=== PATIENT | male | born 1970 | race African-American/Black ===

== ENCOUNTER 2020-08-15 11:49 | Emergency (ER) | payer SELFPAY ==
[2020-08-15] MEDS ORDERED: FENTANYL CITRATE INJ/PF 100 MCG/2 ML AMPUL IV ONE (13:43)
[2020-08-15] MEDS ORDERED: NORMAL SALINE 1000 ML 1,000 ML IV ONE ×2 (13:43→15:51)
--- NOTE | 2020-08-15 13:44 | ER Document Report ---
ED General - General Chief Complaint: Shortness Of Breath Stated Complaint: SHORT OF BREATH Time Seen by Provider: 08/15/20 12:57 Primary Care Provider: VIPIN DOLL PA-C [Primary Care Provider] - Follow up as needed Mode of Arrival: Ambulatory Information source: Patient Notes: Presents complaining of shortness of breath chronically that has worsened over the past 2 weeks. Patient states that this is worse with exertion. Patient also reports right upper quadrant tenderness off and on for the past 10 days. Patient denies any fever, nausea, vomiting or diarrhea. Patient does report recently driving from [place] last week. Patient denies any cough. Patient reports a history of COPD. Patient denies any concerns about possible Covid. - HPI Onset: Other - Weeks Onset/Duration: Worse Quality of pain: Pressure - Right upper quadrant Pain Level: 3 Associated symptoms: Shortness of breath. denies: Chest pain, Nonproductive cough, Productive cough, Fever, Nausea, Vomiting Exacerbated by: Other - Exertion worsening shortness of breath Relieved by: Remaining still Similar symptoms previously: Yes Recently seen / treated by doctor: No - Related Data Allergies/Adverse Reactions: No Known Allergies Allergy (Verified 08/15/20 12:13) Past Medical History - General Information source: Patient - Social History Smoking Status: Former Smoker Frequency of alcohol use: None Drug Abuse: None Family History: Reviewed & Not Pertinent - Past Medical History Cardiac Medical History: Denies: Hx Hypercholesterolemia, Hx Hypertension Pulmonary Medical History: Reports: Hx COPD Neurological Medical History: Reports: Hx Migraine Surgical Hx: Negative Review of Systems - Review of Systems Constitutional: No symptoms reported. denies: Fever EENT: No symptoms reported Cardiovascular: Dyspnea. denies: Chest pain, Dizziness, Lightheaded Respiratory: Short of breath. denies: Cough Gastrointestinal: Abdominal pain. denies: Nausea, Vomiting Genitourinary: No symptoms reported. denies: Dysuria, Flank pain Male Genitourinary: No symptoms reported Musculoskeletal: No symptoms reported. denies: Back pain, Leg swelling Skin: No symptoms reported Hematologic/Lymphatic: No symptoms reported Neurological/Psychological: No symptoms reported Physical Exam - Vital signs Vitals: Temp Pulse Resp BP Pulse Ox 97.9 F 119 H 24 H 148/108 H 95 08/15/20 11:59 08/15/20 11:59 08/15/20 11:59 08/15/20 11:59 08/15/20 11:59 - General General appearance: Appears well, Alert In distress: None - HEENT Head: Normocephalic, Atraumatic Eyes: Normal Conjunctiva: Normal Nasal: Normal Mouth/Lips: Normal Neck: Normal, Supple - Respiratory Respiratory status: No respiratory distress Chest status: Nontender Breath sounds: Normal Chest palpation: Normal - Cardiovascular Rhythm: Tachycardia Heart sounds: S1 appreciated, S2 appreciated Murmur: No - Abdominal Inspection: Normal Distension: No distension Bowel sounds: Normal Tenderness: Tender - RUQ. No: Guarding Organomegaly: No organomegaly - Back Back: Normal, Nontender. No: CVA tenderness - Extremities General upper extremity: Normal inspection, Normal ROM General lower extremity: Normal inspection, Normal ROM - Neurological Neuro grossly intact: Yes Cognition: Normal Raina Coma Scale Eye Opening: Spontaneous Raina Coma Scale Verbal: Oriented Raina Coma Scale Motor: Obeys Commands Raina Coma Scale Total: 15 - Psychological Associated symptoms: Normal affect, Normal mood - Skin Skin Temperature: Warm Skin Moisture: Dry Skin Color: Normal Course - Re-evaluation Re-evalutation: 08/15/20 15:51 Patient voided dark urine to urinal, patient continues tachycardic with heart rate 110, additional IV fluids ordered at this time. 08/15/20 18:00 Patient denies any chest pain or cough at this time. Patient's tachycardia has improved, heart rate 104. Consulted with Dr. Mir regarding patient presentation and diagnostic evaluation. Agrees with plan to treat for likely COPD exacerbation at this time with steroids. Patient without any cough or increased sputum production, will not add antibiotics at this time. Patient had right upper quadrant tenderness, no acute findings on CT or ultrasound. No concern for any biliary obstruction at this time. 08/15/20 18:23 No elevation in patient's repeat troponin, patient's vital signs stable at this time. Patient without any objective dyspnea or tachypnea. Presentation of dyspnea in an otherwise well appearing patient. Low clinical suspicion for ACS given clinical history, exam, EKG without ST elevations or depressions, and nega tive troponin. HEART score less than or equal to 3. CTA without evidence of PE. CXR without evidence of pneumothorax or pneumonia. No widened mediastinum. 08/15/20 18:25 - Vital Signs Vital signs: Temp Pulse Resp BP Pulse Ox 98.0 F 119 H 18 142/106 H 93 08/15/20 14:30 08/15/20 11:59 08/15/20 17:30 08/15/20 17:30 08/15/20 17:15 - Laboratory Result Diagrams: 08/15/20 12:35 08/15/20 12:35 Laboratory results interpreted by me: 08/15/20 08/15/20 08/15/20 12:35 12:35 15:30 WBC 15.1 H Absolute Neuts (auto) 9.8 H Absolute Monos (auto) 1.6 H Carbonic Acid ABG pH ABG pCO2 ABG pO2 ABG HCO3 ABG Total CO2 ABG O2 Saturation Chloride 94 L Carbon Dioxide 36 H Calcium 10.5 H Total Protein 9.1 H Albumin 5.2 H Urine Protein 30 H Urine Ketones 20 H Urine Blood SMALL H 08/15/20 15:43 WBC Absolute Neuts (auto) Absolute Monos (auto) Carbonic Acid 1.60 H ABG pH 7.33 L ABG pCO2 53.2 H ABG pO2 58.8 L ABG HCO3 27.4 H ABG Total CO2 29.0 H ABG O2 Saturation 88.3 L Chloride Carbon Dioxide Calcium Total Protein Albumin Urine Protein Urine Ketones Urine Blood - Diagnostic Test Radiology reviewed: Image reviewed, Reports reviewed - EKG Interpretation by Me EKG shows normal: Sinus rhythm Rate: Tachycardia When compared to previous EKG there are: Previous EKG unavailable Additional EKG results interpreted by me: 08/15/20 14:26 Sinus tachycardia with a rate of 109, QTc 410, no acute ischemic changes, no ST elevation. No prior EKG available for comparison. Discharge - Discharge Clinical Impression: Dehydration COPD (chronic obstructive pulmonary disease) Qualifiers: COPD type: unspecified COPD Qualified Code(s): J44.9 - Chronic obstructive pulmonary disease, unspecified Dyspnea Qualifiers: Dyspnea type: unspecified Qualified Code(s): R06.00 - Dyspnea, unspecified Abdominal pain Qualifiers: Abdominal location: right upper quadrant Qualified Code(s): R10.11 - Right upper quadrant pain Condition: Stable Disposition: HOME, SELF-CARE Instructions: Abdominal Pain ([facility]), Chronic Obstructive Lung Disease ([facility]), Dyspnea, Nonspecific ([facility]), Steroid Medication Additional Instructions: Return immediately for any new or worsening symptoms cough, worsening shortness of breath, fever or any concerning new symptoms: Followup with your primary care provider, call tomorrow to make a followup appointment 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
[2020-08-15 14:01] LABS: ALBUMIN 5.2 g/dL (3.5-5.0); ALKALINE PHOSPHATASE 80 U/L (38-126); ANION GAP 9 (5-19); ASPARTATE AMINO TRANSFERASE 35 U/L (17-59); BILIRUBIN,DIRECT 0.4 mg/dL (0.0-0.4); BILIRUBIN,TOTAL 1.2 mg/dL (0.2-1.3); BLOOD UREA NITROGEN 17 mg/dL (7-20); CALCIUM 10.5 mg/dL (8.4-10.2); CARBON DIOXIDE 36 mmol/L (22-30); CHLORIDE 94 mmol/L (98-107); GLUCOSE 108 mg/dL (75-110); TOTAL PROTEIN 9.1 g/dL (6.3-8.2)
[2020-08-15 14:18] LABS: NT PRO BNP 30 pg/mL (<125)
--- NOTE | 2020-08-15 14:18 | RADIOLOGY REPORT (SQ) ---
EXAM DESCRIPTION: CHEST SINGLE VIEW IMAGES COMPLETED DATE/TIME: 08/15/2020 12:57 pm REASON FOR STUDY: RUQ pain, tachycardia COMPARISON: None. EXAM PARAMETERS: NUMBER OF VIEWS: One view. TECHNIQUE: Single frontal radiographic view of the chest acquired. RADIATION DOSE: NA LIMITATIONS: None. FINDINGS: LUNGS AND PLEURA: Lungs are hyperinflated. No opacities, masses or pneumothorax. No pleur al effusion. MEDIASTINUM AND HILAR STRUCTURES: No masses. Contour normal. HEART AND VASCULAR STRUCTURES: Heart normal in size. Normal vasculature. BONES: No acute findings. HARDWARE: None in the chest. OTHER: No other significant finding. IMPRESSION: No acute cardiopulmonary disease. Hyperinflated lungs which can be seen with obstructiv e lung disease. TECHNICAL DOCUMENTATION: JOB ID: [id number] 2010 [employer]- All Rights Reserved Reading location - IP/workstation name: [id number]
[2020-08-15 14:19] LABS: TROPONIN I < 0.012 ng/mL
[2020-08-15] MEDS ORDERED: ONDANSETRON HCL INJ/PF 4 MG/2 ML SDV IV ONE (14:20)
[2020-08-15 14:21] LABS: ABSOLUTE BASOPHILS # (AUTO) 0.1 10^3/uL (0.0-0.2); ABSOLUTE EOSINOPHILS # (AUTO) 0.1 10^3/uL (0.0-0.6); ABSOLUTE LYMPHOCYTES (AUTO) 3.5 10^3/uL (0.5-4.7); ABSOLUTE MONOCYTES (AUTO) 1.6 10^3/uL (0.1-1.4); ABSOLUTE NEUT (AUTO) 9.8 10^3/uL (1.7-8.2); BASOPHILS % (AUTO) 0.4 % (0-2); EOSINOPHILS % (AUTO) 0.4 % (0-6); HEMATOCRIT 50.3 % (37.9-51.0); HEMOGLOBIN 16.7 g/dL (13.5-17.0); LYMPHOCYTES % (AUTO) 23.3 % (13-45); MEAN CORPUSCULAR HEMOGLOBIN 31.8 pg (27.0-33.4); MEAN CORPUSCULAR HGB CONC 33.3 g/dL (32.0-36.0); MEAN CORPUSCULAR VOLUME 96 fl (80-97); MONOCYTES % (AUTO) 10.5 % (3-13); PLATELET COUNT 255 10^3/uL (150-450); RED BLOOD COUNT 5.26 10^6/uL (4.35-5.55); RED CELL DISTRIBUTION WIDTH 13.5 % (11.5-14.0); SEGMENTED NEUTROPHILS % (AUTO) 65.4 % (42-78); TOTAL CELLS COUNTED % (AUTO) 100 %; WHITE BLOOD COUNT 15.1 10^3/uL (4.0-10.5)
--- NOTE | 2020-08-15 15:04 | EKG REPORT ---
SEVERITY:- ABNORMAL ECG - SINUS TACHYCARDIA RIGHT ATRIAL ABNORMALITY BORDERLINE RIGHT AXIS DEVIATION : Confirmed by: Kevin Mercado MD 15-Aug-2020 15:02:58
--- NOTE | 2020-08-15 15:29 | RADIOLOGY REPORT (SQ) ---
EXAM DESCRIPTION: U/S ABDOMEN LIMITED W/O DOP IMAGES COMPLETED DATE/TIME: 08/15/2020 3:03 pm REASON FOR STUDY: RUQ pain COMPARISON: None. TECHNIQUE: Dynamic and static grayscale images acquired of the abdomen and recorded on PACS. Additio nal selected color Doppler and spectral images recorded. LIMITATIONS: Upper abdominal bowel gas FINDINGS: PANCREAS: Midline pancreas unremarkable LIVER: No masses. Echotexture normal. LIVER VASCULATURE: Normal directional flow of the main portal vein and hepatic veins. GALLBLADDER: No stones. Normal wall thickness. No pericholecystic fluid. ULTRASOUND-DETECTED SHELDON'S SIGN: Negative. INTRAHEPATIC DUCTS AND COMMON DUCT: CBD and intrahepatic ducts normal caliber. No filling defects. INFERIOR VENA CAVA: Normal flow. AORTA: No aneurysm. RIGHT KIDNEY: Normal size. Normal echogenicity. No solid or suspicious masses. No hydronephrosis. No calcifications. PERITONEAL AND RIGHT PLEURAL SPACE: No ascites or effusions. OTHER: No other significant findings. IMPRESSION: NORMAL RIGHT UPPER QUADRANT ULTRASOUND. TECHNICAL DOCUMENTATION: JOB ID: [id number] 2010 [employer]- All Rights Reserved Reading location - IP/workstation name: [email or web address]
[2020-08-15 16:08] LABS: APPEARANCE,URINE CLEAR; BILIRUBIN,URINE NEGATIVE (NEGATIVE); COLOR,URINE YELLOW; GLUCOSE, URINE NEGATIVE (NEGATIVE); KETONES,URINE 20 mg/dL (NEGATIVE); LEUKOCYTE ESTERASE,URINE NEGATIVE (NEGATIVE); NITRITE,URINE NEGATIVE (NEGATIVE); PROTEIN,URINE 30 mg/dL (NEGATIVE); URINE SPECIFIC GRAVITY 1.026; UROBILINOGEN,URINE NEGATIVE mg/dL (<2.0)
[2020-08-15 16:08] LABS: ARTERIAL BLOOD BASE EXCESS 0.3 mmol/L; ARTERIAL BLOOD FIO2 ROOM AIR; ARTERIAL BLOOD HCO3 27.4 mmol/L (20-24); ARTERIAL BLOOD O2 SATURATION 88.3 % (94-98); ARTERIAL BLOOD PCO2 53.2 mmHg (35-45); ARTERIAL BLOOD PH 7.33 (7.35-7.45); ARTERIAL BLOOD PO2 58.8 mmHg (80-100)
[2020-08-15 16:22] LABS: URINE AMPHETAMINES SCREEN NEGATIVE; URINE BENZODIAZEPINES SCREEN NEGATIVE; URINE COCAINE SCREEN NEGATIVE; URINE MARIJUANA (THC) SCREEN NEGATIVE; URINE METHADONE SCREEN NEGATIVE; URINE PHENCYCLIDINE SCREEN NEGATIVE
[2020-08-15 16:24] LABS: URINE BARBITURATES SCREEN UNCONFIRMED POSITIVE
--- NOTE | 2020-08-15 17:03 | RADIOLOGY REPORT (SQ) ---
EXAM DESCRIPTION: CTA CHEST IMAGES COMPLETED DATE/TIME: 08/15/2020 3:31 pm REASON FOR STUDY: tachycardia, sob, RUQ pain. COMPARISON: Chest radiograph same date. Abdominal ultrasound same date. . TECHNIQUE: CT scan of the chest performed using helical scanning technique with dynamic intravenous contrast injection. Images reviewed with lung, soft tissue and bone windows. Reconstructed coronal and sagittal MPR images reviewed. Additional 3 dimensional post-processing performed to develop Maximal Intensity Projection images (DE P). All images stored on PACS. All CT scanners at this facility use dose modulation, iterative reconstruction, and/or weight based d osing when appropriate to reduce radiation dose to as low as reasonably achievable (ALARA). [facility]: Dose Right [facility]: CareDose [facility]: Dose Right [facility]: Teradose 4D [facility]: [employer] CONTRAST TYPE AND DOSE: contrast/concentration: Isovue 350.00 mmol/ml; Total Contrast Delivered: 51. 0 ml; Total Saline Delivered: 76.0 ml Contrast bolus not optimized for the pulmonary arteries. RENAL FUNCTION: GFR > 60. RADIATION DOSE: CT Rad equipment meets quality standard of care and radiation dose reduction techniq ues were employed. CTDIvol: 9.9 - 14.3 mGy. DLP: 612 mGy-cm. . LIMITATIONS: None. FINDINGS: LUNGS AND PLEURA: Trachea has normal caliber and appearance. No bronchial wall thickening or bronchiectasis. Background moderate pulmonary emphysema predominantly at the lung apices. No fo billie consolidation or pleural effusion. No pneumothorax. No significant ground-glass attenuation. AORTA AND GREAT VESSELS: The aorta has normal caliber and appearance. No aneurysm. No dissection or significant plaque or plaque ulceration. No periaortic fluid. 3 great vessels arise from the aorti c arch. Descending thoracic aorta and upper abdominal aorta have normal caliber. HEART: No pericardial effusion. No significant coronary artery calcifications. PULMONARY ARTERIES: The pulmonary arteries are moderately opacified with contrast. There is no large central pulmonary embolus. Evaluation of the segmental and subsegmental pulmonary arteries is limit ed due to phase of contrast timing. HILAR AND MEDIASTINAL STRUCTURES: No identified masses or abnormal nodes. HARDWARE: None in the chest. UPPER ABDOMEN: No significant abnormality. THYROID AND OTHER SOFT TISSUES: No masses. No adenopathy. BONES: No acute or significant finding. 3D MIPS: Confirm above findings. OTHER: No other significant finding. IMPRESSION: 1. No large central pulmonary embolus. Evaluation of the segmental and subsegmental pulmonary arteri es is limited due to phase of contrast timing. 2. No aortic aneurysm or dissection. 3. Moderate pulmonary emphysema. COMMENT: Quality ID # [id number]: Final reports with documentation of one or more dose reduction techniques (e.g., Automated exposure control, adjustment of the mA and/or kV according to patient size, use of iterative reconstruction technique) TECHNICAL DOCUMENTATION: JOB ID: [id number] 2010 [employer]- All Rights Reserved Reading location - IP/workstation name: [email or web address]
[2020-08-15] MEDS ORDERED: PREDNISONE 20 MG TABLET PO ONE (18:27)
[2020-08-15 18:57] VITALS: BP 144/92
== END 2020-08-15 18:52 | disposition home or self-care (01) ==
LOC: ER 11:49
DX: J43.9 Emphysema, unspecified (principal); E86.0 Dehydration; R10.11 Right upper quadrant pain; R10.811 Right upper quadrant abdominal tenderness; R00.0 Tachycardia, unspecified; Z87.891 Personal history of nicotine dependence
CPT/HCPCS: 93005; 99285; 96361; 96374; 96375; 36415; 82803; 83690; 83735; 84443; 85025; 80053; 81001; 84484; 80307; 85379; 83880; 71045; 76705; 71275; 93010; J3010; J7512; J2405; J7030

== ENCOUNTER → 2020-08-30 | Outpatient (CLI) | payer SELFPAY ==
[2020-08-30 13:51] LABS: ARTERIAL BLOOD BASE EXCESS 4.2 mmol/L; ARTERIAL BLOOD H2CO3 1.66 mmol/L (1.05-1.35); ARTERIAL BLOOD HCO3 31.2 mmol/L (20-24); ARTERIAL BLOOD O2 SATURATION 93.5 % (94-98); ARTERIAL BLOOD PCO2 55.2 mmHg (35-45); ARTERIAL BLOOD PH 7.37 (7.35-7.45); ARTERIAL BLOOD PO2 70.6 mmHg (80-100); ARTERIAL BLOOD TOTAL CO2 32.9 mmol/L (23-27)
[2020-08-30 13:52] LABS: ARTERIAL BLOOD FIO2 ROOM AIR
[2020-08-30 14:06] LABS: ABSOLUTE BASOPHILS # (AUTO) 0.1 10^3/uL (0.0-0.2); ABSOLUTE EOSINOPHILS # (AUTO) 0.1 10^3/uL (0.0-0.6); ABSOLUTE LYMPHOCYTES (AUTO) 1.9 10^3/uL (0.5-4.7); ABSOLUTE MONOCYTES (AUTO) 1.2 10^3/uL (0.1-1.4); ABSOLUTE NEUT (AUTO) 9.4 10^3/uL (1.7-8.2); BASOPHILS % (AUTO) 0.5 % (0-2); EOSINOPHILS % (AUTO) 0.5 % (0-6); HEMATOCRIT 46.1 % (37.9-51.0); HEMOGLOBIN 15.3 g/dL (13.5-17.0); LYMPHOCYTES % (AUTO) 14.9 % (13-45); MEAN CORPUSCULAR HEMOGLOBIN 31.5 pg (27.0-33.4); MEAN CORPUSCULAR HGB CONC 33.1 g/dL (32.0-36.0); MEAN CORPUSCULAR VOLUME 95 fl (80-97); MONOCYTES % (AUTO) 9.2 % (3-13); PLATELET COUNT 314 10^3/uL (150-450); RED BLOOD COUNT 4.85 10^6/uL (4.35-5.55); SEGMENTED NEUTROPHILS % (AUTO) 74.9 % (42-78); TOTAL CELLS COUNTED % (AUTO) 100 %; WHITE BLOOD COUNT 12.6 10^3/uL (4.0-10.5)
[2020-08-30 14:35] LABS: ALBUMIN 4.5 g/dL (3.5-5.0); ALKALINE PHOSPHATASE 68 U/L (38-126); ANION GAP 6 (5-19); ASPARTATE AMINO TRANSFERASE 22 U/L (17-59); BILIRUBIN,DIRECT 0.1 mg/dL (0.0-0.4); BILIRUBIN,TOTAL 0.6 mg/dL (0.2-1.3); BLOOD UREA NITROGEN 14 mg/dL (7-20); CALCIUM 9.9 mg/dL (8.4-10.2); CARBON DIOXIDE 36 mmol/L (22-30); CHLORIDE 95 mmol/L (98-107); GLUCOSE 102 mg/dL (75-110); POTASSIUM 5.3 mmol/L (3.6-5.0); TOTAL PROTEIN 8.2 g/dL (6.3-8.2)
[2020-08-31 13:37] LABS: ANTICHROMATIN AB <0.2 AI (0.0-0.9); CENTROMERE B AB <0.2 AI (0.0-0.9); JO-1 ANTIBODY (ANACOMP) <0.2 AI (0.0-0.9); SJOGREN'S ANTI-SS-B AB <0.2 AI (0.0-0.9); SJOGREN'S SS-A ANTIBODY <0.2 AI (0.0-0.9)
[2020-08-31 13:50] LABS: DNA DOUBLE STRAND ANTIBODY ANA <1 IU/mL (0-9)
== END ==
LOC: OD 13:09
PROVIDERS: ATTEND Internal Medicine Pulmonary Disease
DX: J44.9 Chronic obstructive pulmonary disease, unspecified (principal)
CPT/HCPCS: 36415; 80053; 82103; 82104; 82803; 85025; 86225; 86235

== ENCOUNTER 2020-09-02 23:39 | Emergency (ER) | payer SELFPAY ==
--- NOTE | 2020-09-03 00:01 | ER Document Report ---
ED Medical Screen (RME) - General Chief Complaint: Shortness Of Breath Stated Complaint: SHORTNESS OF BREATH, HEADACHE Time Seen by Provider: 09/02/20 23:57 Primary Care Provider: ANGELA ROSE MD [Primary Care Provider] - Follow up as needed Mode of Arrival: Wheelchair Notes: Patient is a 49-year-old male comes emergency room complaining of shortness of breath and fast heart rate. Patient states that he has a history of COPD and currently changed on his MDI to Stiolto/respira/MDI. He states around 11 AM this morning became exceptionally short of breath. Took a prednisone tablet he had that a little bit better. Around 2:58 PM he said he got short of breath again with diaphoretic and felt like his throat was closing up on him. And again tonight around 9 outsets. patient is taken approximately 3 doses of steroids today. He denies any history of hypertension is on no hypertensive medications it was noted. Patient arrived in triage was noted that his pulse oximetry showed an 88% on room air. Patient was placed on 2 L nasal cannula by the triage nurse and patient sat close to approximately 92%. Currently patient has a heart rate of approximately 145 beats he appears to be somewhat consistent. Physical examination: Patient is a well-nourished well-developed 29-year-old male though no apparent distress but appears somewhat uncomfortable. Patient is not in any respiratory distress currently. Cardiac: Patient displays a tachycardic rate at about 145 bpm constant. Lungs: Bilateral breath sounds decreased throughout no rhonchi or wheeze are heard on auscultation. Abdomen: Bowel sounds present all 4 quads nontender to palpate. I have greeted and performed a rapid initial assessment of this patient. A comprehensive ED assessment and evaluation of the patient, analysis of test results and completion of the medical decision making process will be conducted by additional ED providers. Dictation of this chart was performed using voice recognition software; therefore, there may be some unintended grammatical errors. - Related Data Allergies/Adverse Reactions: No Known Allergies Allergy (Verified 08/15/20 12:13) Past Medical History - Past Medical History Cardiac Medical History: Denies: Hx Hypercholesterolemia, Hx Hypertension Pulmonary Medical History: Reports: Hx COPD Neurological Medical History: Reports: Hx Migraine Physical Exam - Vital signs Vitals: Temp Pulse Resp BP Pulse Ox 97.7 F 145 H 16 139/101 H 91 L 09/02/20 23:50 09/02/20 23:50 09/02/20 23:50 09/02/20 23:50 09/02/20 23:50 Course - Vital Signs Vital signs: Temp Pulse Resp BP Pulse Ox 97.7 F 145 H 16 139/101 H 91 L 09/02/20 23:50 09/02/20 23:50 09/02/20 23:50 09/02/20 23:50 09/02/20 23:50 Doctor's Discharge - Discharge Referrals: ANGELA ROSE MD [Primary Care Provider] - Follow up as needed
[2020-09-03 00:27] LABS: ABSOLUTE BASOPHILS # (AUTO) 0.1 10^3/uL (0.0-0.2); ABSOLUTE LYMPHOCYTES (AUTO) 2.7 10^3/uL (0.5-4.7); ABSOLUTE MONOCYTES (AUTO) 1.5 10^3/uL (0.1-1.4); ABSOLUTE NEUT (AUTO) 12.2 10^3/uL (1.7-8.2); BASOPHILS % (AUTO) 0.6 % (0-2); EOSINOPHILS % (AUTO) 0.1 % (0-6); HEMATOCRIT 51.2 % (37.9-51.0); HEMOGLOBIN 16.9 g/dL (13.5-17.0); LYMPHOCYTES % (AUTO) 16.2 % (13-45); MEAN CORPUSCULAR HEMOGLOBIN 31.9 pg (27.0-33.4); MEAN CORPUSCULAR VOLUME 97 fl (80-97); MONOCYTES % (AUTO) 9.1 % (3-13); PLATELET COUNT 302 10^3/uL (150-450); RED BLOOD COUNT 5.29 10^6/uL (4.35-5.55); RED CELL DISTRIBUTION WIDTH 13.4 % (11.5-14.0); TOTAL CELLS COUNTED % (AUTO) 100 %; WHITE BLOOD COUNT 16.5 10^3/uL (4.0-10.5)
[2020-09-03] MEDS ORDERED: NORMAL SALINE 1000 ML 1,000 ML IV ONE ×2 (00:52→06:28)
[2020-09-03] MEDS ORDERED: METHYLPREDNISOLONE INJ 125 MG/2 ML SDV IV ONE (00:52)
[2020-09-03] MEDS ORDERED: IPRATROPIUM/ALBUTEROL 0.5-2.5 MG/3 ML AMPUL NEB ONE (00:53)
[2020-09-03 01:03] LABS: ALBUMIN 4.9 g/dL (3.5-5.0); ALKALINE PHOSPHATASE 86 U/L (38-126); ANION GAP 12 (5-19); ASPARTATE AMINO TRANSFERASE 31 U/L (17-59); BLOOD UREA NITROGEN 15 mg/dL (7-20); CALCIUM 10.7 mg/dL (8.4-10.2); CARBON DIOXIDE 31 mmol/L (22-30); CHLORIDE 93 mmol/L (98-107); GLUCOSE 130 mg/dL (75-110)
[2020-09-03 01:09] LABS: BILIRUBIN,DIRECT 0.2 mg/dL (0.0-0.4); BILIRUBIN,TOTAL 0.8 mg/dL (0.2-1.3)
[2020-09-03 01:10] LABS: TOTAL PROTEIN 9.7 g/dL (6.3-8.2)
--- NOTE | 2020-09-03 01:11 | RADIOLOGY REPORT (SQ) ---
EXAM DESCRIPTION: XR CHEST 1 VIEW COMPLETED DATE/TME: 09/03/2020 00:25 CLINICAL HISTORY: 49 years, Male, Short of breath COMPARISON: X-ray chest 08/15/2020 NUMBER OF VIEWS: TECHNIQUE: LIMITATIONS: None. FINDINGS: There is emphysema. No evidence of pulmonary infiltrate or pleural effusion. The heart and mediastinum are unremarkable. Pulmonary vascularity appears normal. There is no significant change, as compared with the prior x-ray(s). IMPRESSION: Emphysema. copyright 2010 [employer]- All Rights Reserved
[2020-09-03] MEDS ORDERED: CALCIUM GLUCONATE 1000 MG/10 ML INJ IV ONE (01:14)
[2020-09-03] MEDS ORDERED: INSULIN REG, HUMAN 100 UNIT/ML 3 ML VIAL (PYX) IV ONE (01:19)
[2020-09-03] MEDS ORDERED: DEXTROSE 50%-WATER 25 GM/50 ML DISP.SYRIN IV ONE (01:19)
[2020-09-03 01:31] LABS: PHOSPHORUS 3.8 mg/dL (2.5-4.5)
[2020-09-03] MEDS ORDERED: IBUPROFEN 600 MG TABLET PO ONE (01:52)
--- NOTE | 2020-09-03 03:06 | ER Document Report ---
ED General - General Chief Complaint: Shortness Of Breath Stated Complaint: SHORTNESS OF BREATH, HEADACHE Time Seen by Provider: 09/02/20 23:57 Primary Care Provider: ANGELA ROSE MD [Primary Care Provider] - Follow up in 1 week KROINA FELIX MD [ACTIVE STAFF] - Follow up in 1 week Mode of Arrival: Wheelchair Notes: 49-year-old male with COPD presents with shortness of breath for the past day. Patient says that throughout the day he has felt so short of breath at times that he does not have any air movement and when he tried to use the albuterol he can get into his lungs. Patient needs over to catch his breath and then is able to use the albuterol which partially improves his symptoms. Patient says this is similar to his prior COPD symptoms but is worse. Patient was only diagnosed several months ago with COPD and has been following with the machine captain. Patient quit smoking 2 years ago. Patient denies any cough, fever, myalgia, malaise, chest pain, lower extremity edema, cardiac history, DVT/PE/hypercoagulability history in self or family, exogenous estrogen use, recent travel/trauma/surgery/immobilization, drug use including cocaine or other stimulants, thyroid history, black or bloody stools/diarrhea/vomiting. Patient does endorse that he has had pain in his right upper quadrant somewhat constantly for the last several months without any associated symptoms. Also says that he has been feeling slight burning when he pees for the past few days. Endorses having lost about 8 pounds over the last few months, but attributes it to stopping his heavy soda drinking and switching to water. - Related Data Allergies/Adverse Reactions: No Known Allergies Allergy (Verified 08/15/20 12:13) Past Medical History - General Information source: Patient, [facility] Records - Social History Smoking Status: Former Smoker Family History: Reviewed & Not Pertinent - Past Medical History Cardiac Medical History: Denies: Hx Hypercholesterolemia, Hx Hypertension Pulmonary Medical History: Reports: Hx COPD Neurological Medical History: Reports: Hx Migraine Review of Systems - Review of Systems Notes: REVIEW OF SYSTEMS: CONSTITUTIONAL : Denies fever, chills, or sweats. EENT: Denies recent cold/sinus symptoms, denies throat pain CARDIOVASCULAR: Denies chest pain, GEORGE RESPIRATORY: Denies cough, + shortness of breath. GASTROINTESTINAL: Denies +abdominal pain, -nausea/vomiting. GENITOURINARY: Denies difficulty urinating, +painful urination. MUSCULOSKELETAL: Denies neck pain, back pain. SKIN: Denies rash or skin lesions. HEMATOLOGIC : Denies easy bruising or bleeding. LYMPHATIC: Denies swollen, enlarged glands. NEUROLOGICAL: Denies headache, denies change in gait. PSYCHIATRIC: Denies anxiety or stress or depression. Physical Exam - Vital signs Vitals: Temp Pulse Resp BP Pulse Ox 97.7 F 145 H 16 139/101 H 91 L 09/02/20 23:50 09/02/20 23:50 09/02/20 23:50 09/02/20 23:50 09/02/20 23:50 - Notes Notes: PHYSICAL EXAMINATION: GENERAL: Well-appearing, thin pleasant talkative middle-aged man appearing younger than stated age and in no acute distress. HEAD: Atraumatic, normocephalic. EYES: Pupils equal round and appropriate constriction, sclera anicteric, conjunctiva are normal. ENT: nares patent, moist mucous membranes. NECK: Normal range of motion, supple without lymphadenopathy, no thyroid masses palpable LUNGS: Breath sounds clear to auscultation bilaterally and equal, diminished breath sounds diffusely, no tachypnea, speaking in full sentences, no accessory muscle use HEART: Tachycardia with regular rhythm, no murmurs rubs or gallops ABDOMEN: Mild right upper quadrant tenderness without rebound or guarding, prominent pulsations from abdominal aorta, no CVA tenderness EXTREMITIES: Normal range of motion, no pitting or edema. No cyanosis. NEUROLOGICAL: Awake, alert, conversing appropriately, moves all extremities spontaneously. PSYCH: Normal mood, normal affect. SKIN: Warm, Dry, normal turgor, no rashes or lesions noted. Course - Re-evaluation Re-evalutation: 09/03/20 03:36 Patient presents with shortness of breath, exam is consistent with COPD exacerbation, patient also with marked tachycardia on arrival which has improved after improvement of his COPD symptoms with nebs. Given dramatic improvement in symptoms with treatment for COPD I have low suspicion for PE in this patient and given that he has no risk factors for PE he is sufficiently low risk to rule out with a D-dimer which was negative. Patient appears reliable and denies any drug use that may be contributing to tachycardia. Rule out signs of dehydration on labs, hyperthyroidism, but not consistent with thyroid storm. 09/03/20 03:42 Patient's potassium was 7 on initial BMP, I called lab to make sure that specimen was not hemolyzed and there was slight hemolysis but was told that this was not enough to make potassium still elevated. I asked nurse to redraw BMP and then treat for hyperkalemia while waiting for repeat result and repeat BMP shows a normal potassium of 5.1. Unable to definitively say why patient had initial potassium of 7, but likely is a sign that patient was significantly ac idotic when he arrived and that this is now resolved. 09/03/20 06:18 Patient continues to feel improved, 4-hour repeat troponin remains negative, will discharge patient with cardiology follow-up for EKG abnormalities on arrival, but heart score is 1 for EKG. I explained this to him and will give him the information for a pierogi maker. Patient's tachycardia has greatly improved and is now in the 100s which is what he has been at at prior visits, he does take a beta-db for intermittent headache symptoms which may be causing rebound tachycardia. patient ready for discharge with COPD treatment, given return to ED precautions which he demonstrated understanding of. - Vital Signs Vital signs: Temp Pulse Resp BP Pulse Ox 97.7 F 145 H 17 143/108 H 99 09/02/20 23:50 09/02/20 23:50 09/03/20 05:31 09/03/20 05:31 09/03/20 05:31 - Laboratory Results Result Diagrams: 09/03/20 00:13 09/03/20 02:15 Laboratory Results Interpreted: 09/03/20 09/03/20 09/03/20 00:13 00:13 00:13 WBC 16.5 H Hct 51.2 H Absolute Neuts (auto) 12.2 H Absolute Monos (auto) 1.5 H Sodium 135.9 L Potassium 7.0 H* Chloride 93 L Carbon Dioxide 31 H Glucose 130 H Calcium 10.7 H Creatine Kinase 190 H Total Protein 9.7 H Urine Protein Urine Glucose (UA) Urine Ketones Urine Blood Urine Sodium 09/03/20 09/03/20 09/03/20 02:15 03:16 03:16 WBC Hct Absolute Neuts (auto) Absolute Monos (auto) Sodium 136.6 L Potassium 5.1 H D Chloride Carbon Dioxide 31 H Glucose Calcium Creatine Kinase Total Protein Urine Protein 100 H Urine Glucose (UA) >=500 H Urine Ketones 20 H Urine Blood SMALL H Urine Sodium 107 H Critical Laboratory Results Reviewed: Yes Attending or Supervising Physician who Reviewed Labs: AGUSTIN HERNANDEZ - Radiology Results Critical Radiology Results Reviewed: No Critical Results - EKG Interpretation by Me Additional EKG results interpreted by me: 09/03/20 06:37 Sinus tachycardia, no significant ST elevations or depressions, equivocal T wave abnormalities Discharge - Discharge Clinical Impression: COPD exacerbation, Hyperkalemia, transcellular shifts, Tachycardia, Microscopic hematuria Disposition: HOME, SELF-CARE Additional Instructions: Follow-up closely with your machine captain within the next few days. Take all steroids as prescribed. Take albuterol every 4 hours over the next 4 days. If you have any worsening shortness of breath, chest pain, dizziness, palpitations, confusion, fainting, or any other worsening or alarming symptoms return to the emergency department immediately. Your white blood cells were high which is probably because you were in distress because of your breathing, however you should follow-up with your primary doctor to make sure that this is not a sign of something dangerous such as cancer. You had a small amount of blood in your urine also and you should follow this up too. follow-up with the primary doctor within 1 week. Your EKG was also somewhat abnormal, you will need to see a pierogi maker for this as we discussed. Patient was provided with discharge information including: As a person under investigation for Covid 19, the [place] department of Health and Human Services, division of public health advises you to adhere to the following guidance until your test results are reported to you. If your test result is positive, you will receive additional information from your provider and your local health department at that time. Remain at home until you are cleared by the health provider or public health authorities. Keep a log of visitors to your home, notify any visitors to your home of your isolation status. If you plan to move to a new address or leave the county, notify the local health department in your County. Call your doctor or seek care if you have an urgent medical need. Before seeking medical care, call ahead to get instructions from the provider before arriving at the medical office clinic or hospital. Notify them that you are being tested for the virus that causes Covid 19 so that arrangements can be made, as necessary, to prevent transmission to others in the healthcare setting. Next, notify the local health department in your county. If a medical emergency arises and you need to call 911, inform the first responders that you are being tested for the virus that causes Covid 19. Next, notify the local health department in your county. Prescriptions: Prednisone [Deltasone 20 mg Tablet] 3 tab PO DAILY 4 Days #12 tablet Albuterol Sulfate [Proair HFA Inhalation Aerosol 8.5 gm MDI] 2 puff IH Q4H #1 mdi Referrals: ANGELA ROSE MD [Primary Care Provider] - Follow up in 1 week KORINA FELIX MD [ACTIVE STAFF] - Follow up in 1 week
[2020-09-03 03:35] LABS: ANION GAP 7 (5-19); BLOOD UREA NITROGEN 14 mg/dL (7-20); CALCIUM 8.7 mg/dL (8.4-10.2); CARBON DIOXIDE 31 mmol/L (22-30); CHLORIDE 99 mmol/L (98-107); GLUCOSE 105 mg/dL (75-110)
[2020-09-03 03:36] LABS: POTASSIUM 5.1 mmol/L (3.6-5.0)
[2020-09-03 04:00] LABS: URINE CREATININE 186.1 mg/dL (22-328)
--- NOTE | 2020-09-03 04:16 | RADIOLOGY REPORT (SQ) ---
Ultrasound right upper quadrant on 09/03/2020 at 3:20 AM CLINICAL INDICATION: Right upper quadrant pain, pulsatile epigastric mass COMPARISON: CT chest and upper abdomen from 08/15/2020 and ultrasound from 08/15/2020 FINDINGS: Multiple sonographic images were obtained throughout the right upper quadrant, both transverse and sagittal images are obtained. Visualized pancreas is unremarkable. Visualized aorta is unremarkable without evidence of an aneurysm. Visualized liver is homogeneous without focal liver lesion. There are no gallstones, gallbladder wall thickening or pericholecystic fluid. The portal vein is patent and with a normal directional flow. The common duct measures 4 mm which is within normal limits mitigating against obstruction of the biliary tree. Right kidney shows no hydronephrosis. IMPRESSION: Unremarkable exam.
[2020-09-03 05:02] LABS: APPEARANCE,URINE CLEAR; BILIRUBIN,URINE NEGATIVE (NEGATIVE); COLOR,URINE YELLOW; GLUCOSE, URINE >=500 mg/dL (NEGATIVE); KETONES,URINE 20 mg/dL (NEGATIVE); LEUKOCYTE ESTERASE,URINE NEGATIVE (NEGATIVE); NITRITE,URINE NEGATIVE (NEGATIVE); PROTEIN,URINE 100 mg/dL (NEGATIVE); URINE SPECIFIC GRAVITY 1.021; UROBILINOGEN,URINE NEGATIVE mg/dL (<2.0)
[2020-09-03 06:57] VITALS: BP 133/90
--- NOTE | 2020-09-03 08:56 | EKG REPORT ---
SEVERITY:- ABNORMAL ECG - SINUS TACHYCARDIA NONSPECIFIC INTRAVENTRICULAR CONDUCTION DELAY ST DEPRESSION, CONSIDER ISCHEMIA, INF LEADS BIATRIAL ABNORMALITIES : Confirmed by: Arcelia Isaacs MD 03-Sep-2020 08:56:03
== END 2020-09-03 06:58 | disposition home or self-care (01) ==
LOC: ER 23:39
DX: J43.9 Emphysema, unspecified (principal); E87.5 Hyperkalemia; R31.29 Other microscopic hematuria; R06.02 Shortness of breath; R10.11 Right upper quadrant pain; R10.811 Right upper quadrant abdominal tenderness; R00.0 Tachycardia, unspecified; R30.0 Dysuria; Z79.899 Other long term (current) drug therapy; Z87.891 Personal history of nicotine dependence; Z20.828 Contact with and (suspected) exposure to other viral communicable diseases
CPT/HCPCS: 93005; 94640; 99285; 96361; 96375; 96365; 96366; 36415; 87086; 82550; 83690; 83735; 83930; 84100; 84443; 82570; 83935; 84133; 84300; 85025; 87635; 80053; 81001; 84484; 85379; 71045; 76705; 93010; J0610; J3490; J2930; J1815; J7030; C9803

== ENCOUNTER 2020-09-05 20:25 | Observation (INO) | payer OTHER ==
[2020-09-05] MEDS ORDERED: IPRATROPIUM/ALBUTEROL 0.5-2.5 MG/3 ML AMPUL NEB ONE (20:43)
[2020-09-05] MEDS ORDERED: LEVALBUTEROL HCL NEB 1.25 MG/3 ML AMPUL NEB ONE (20:43)
[2020-09-05] MEDS ORDERED: METHYLPREDNISOLONE INJ 125 MG/2 ML SDV IV ONE (20:43)
[2020-09-05] MEDS ORDERED: NORMAL SALINE 1000 ML 1,000 ML IV ONE (20:44)
--- NOTE | 2020-09-05 20:46 | ER Document Report ---
ED Medical Screen (RME) - General Stated Complaint: DIFFICULTY BREATHING/COPD Time Seen by Provider: 09/05/20 20:38 Primary Care Provider: ANGELA ROSE MD [Primary Care Provider] - Follow up as needed Notes: Patient presents complaining of difficulty breathing that started today. Patient states he did have some chest pain and diaphoresis. Patient denies any fever. Patient's initial pulse ox was 70% on presentation to the ER. Patient tachycardic. Patient reports history of COPD. Denies any previous history of intubation. I have greeted and performed a rapid initial assessment of this patient. A comprehensive ED assessment and evaluation of the patient, analysis of test results and completion of the medical decision making process will be conducted by additional ED providers. - Related Data Allergies/Adverse Reactions: No Known Allergies Allergy (Verified 08/15/20 12:13) Past Medical History - Past Medical History Cardiac Medical History: Denies: Hx Hypercholesterolemia, Hx Hypertension Pulmonary Medical History: Reports: Hx COPD Neurological Medical History: Reports: Hx Migraine Physical Exam - Respiratory Respiratory status: Tachypnea Breath sounds: Nonproductive cough, Wheezing - Tight wheezing bilaterally - Cardiovascular Rhythm: Tachycardia Heart sounds: S1 appreciated, S2 appreciated Doctor's Discharge - Discharge Referrals: ANGELA ROSE MD [Primary Care Provider] - Follow up as needed
[2020-09-05 21:02] LABS: ABSOLUTE BASOPHILS # (AUTO) 0.1 10^3/uL (0.0-0.2); ABSOLUTE EOSINOPHILS # (AUTO) 0.2 10^3/uL (0.0-0.6); ABSOLUTE LYMPHOCYTES (AUTO) 3.9 10^3/uL (0.5-4.7); ABSOLUTE MONOCYTES (AUTO) 2.5 10^3/uL (0.1-1.4); ABSOLUTE NEUT (AUTO) 10.9 10^3/uL (1.7-8.2); BASOPHILS % (AUTO) 0.5 % (0-2); EOSINOPHILS % (AUTO) 0.9 % (0-6); HEMATOCRIT 49.3 % (37.9-51.0); LYMPHOCYTES % (AUTO) 22.3 % (13-45); MEAN CORPUSCULAR HEMOGLOBIN 31.1 pg (27.0-33.4); MEAN CORPUSCULAR HGB CONC 32.5 g/dL (32.0-36.0); MEAN CORPUSCULAR VOLUME 96 fl (80-97); MONOCYTES % (AUTO) 14.4 % (3-13); PLATELET COUNT 293 10^3/uL (150-450); RED BLOOD COUNT 5.15 10^6/uL (4.35-5.55); RED CELL DISTRIBUTION WIDTH 13.3 % (11.5-14.0); SEGMENTED NEUTROPHILS % (AUTO) 61.9 % (42-78); TOTAL CELLS COUNTED % (AUTO) 100 %; WHITE BLOOD COUNT 17.7 10^3/uL (4.0-10.5)
[2020-09-05 21:15] LABS: ALBUMIN 4.5 g/dL (3.5-5.0); ALKALINE PHOSPHATASE 72 U/L (38-126); ASPARTATE AMINO TRANSFERASE 39 U/L (17-59); BILIRUBIN,DIRECT 0.3 mg/dL (0.0-0.4); BLOOD UREA NITROGEN 19 mg/dL (7-20); CALCIUM 10.2 mg/dL (8.4-10.2); CHLORIDE 92 mmol/L (98-107); GLUCOSE 166 mg/dL (75-110); POTASSIUM 5.5 mmol/L (3.6-5.0); TOTAL PROTEIN 8.1 g/dL (6.3-8.2)
[2020-09-05 21:21] LABS: ANION GAP 10 (5-19); CARBON DIOXIDE 39 mmol/L (22-30)
--- NOTE | 2020-09-05 22:11 | RADIOLOGY REPORT (SQ) ---
CHEST X-RAY 1 VIEW on 09/05/2020 at 9:29 PM CLINICAL INDICATION: Shortness of breath, chest pain COMPARISON: 09/03/2020 FINDINGS: Emphysematous changes of the lungs are noted. The lungs are otherwise clear. Cardiac, hilar and mediastinal contours are within normal limits. Pulmonary vascularity is within normal limits. No bony abnormality is noted. IMPRESSION: No acute disease.
--- NOTE | 2020-09-05 22:28 | ER Document Report ---
ED Respiratory Problem - General Chief Complaint: Breathing Difficulty Stated Complaint: DIFFICULTY BREATHING/COPD Time Seen by Provider: 09/05/20 20:38 Primary Care Provider: ANGELA ROSE MD [Primary Care Provider] - Follow up as needed Notes: Patient is a 49-year-old male with a history of COPD who presents to the emergency department with shortness of breath. Patient states that he has been on prednisone since he was here 3 days ago. States that he has been taking his prednisone, but continues to be short of breath. Denies any current smoking, but quit smoking 2 years ago. - Related Data Allergies/Adverse Reactions: prednisone Allergy (Verified 09/05/20 21:17) Shortness of Breath Past Medical History - Social History Smoking Status: Former Smoker Frequency of alcohol use: None Drug Abuse: None Family History: Reviewed & Not Pertinent Patient has homicidal ideation: No - Past Medical History Cardiac Medical History: Denies: Hx Hypercholesterolemia, Hx Hypertension Pulmonary Medical History: Reports: Hx COPD Neurological Medical History: Reports: Hx Migraine Review of Systems - Review of Systems Notes: REVIEW OF SYSTEMS: CONSTITUTIONAL : Denies recent illness. Denies recent unintentional weight loss. See HPI. EENT: Denies eye, ear, throat, or mouth pain, discharge, or symptoms. Denies nasal or sinus congestion. CARDIOVASCULAR: Denies chest pain. RESPIRATORY: See HPI. GASTROINTESTINAL: Denies nausea, vomiting, and diarrhea. Denies abdominal pain. Denies constipation. GENITOURINARY: Denies difficulty urinating, burning, blood in urine, urgency or frequency. MUSCULOSKELETAL: Denies neck and back pain. Denies joint pain or swelling. SKIN: Denies rash, itchiness, or lesions HEMATOLOGIC : Denies easy bruising or bleeding. LYMPHATIC: Denies swollen, painful, enlarged glands. NEUROLOGICAL: Denies no numbness or tingling denies weakness. Denies headache. Denies altered mental status. Denies alteration in speech. PSYCHIATRIC: Denies stress, anxiety, alteration in sleep patterns, or depres rosemarie. All other systems reviewed and negative. Physical Exam - Vital signs Vitals: Pulse Ox 82 L 09/05/20 20:26 - Notes Notes: PHYSICAL EXAMINATION: GENERAL: Appears well, healthy, well-nourished, no acute distress. HEAD: Normocephalic, atraumatic. EYES: PERRL, conjunctiva normal, all extraocular movements intact, sclera nonicteric ENT: Moist mucous membranes. NECK: Supple, no noticeable swelling, redness, rash. Normal range of motion. LUNGS: Diminished breath sounds in all lobes. CARDIOVASCULAR: S1-S2, regular rate, regular rhythm. Radial pulses 2+, normal. ABDOMEN: Normoactive bowel sounds. Soft, nontender, no guarding, no rebound tenderness, and no masses palpated. EXTREMITIES: Normal strength and range of motion, no pitting or edema. No cyanosis. NEUROLOGICAL: Moves all extremities upon command. Strength 5/5 in all extremities. PSYCH: Normal mood, normal affect. SKIN: Warm, dry. No rash, lesions, ulcerations noted. Normal skin turgor. Course - Re-evaluation Re-evalutation: 09/05/20 23:18 Hematology shows a leukocytosis of 17,700. This is most likely due to the patient being on prednisone. D-dimer is negative. ABG was for some reason canceled. This most likely hemolyzed. Potassium is 5.5. He received IV fluids for this. LFTs are unremarkable. Glucose is slightly elevated and is 166. Troponin is negative.I spoke with Dr. Sainz. He will evaluate the patient. 09/06/20 01:[address] Sainz for the patient to be admitted to the te lemetry unit. - Vital Signs Vital signs: Temp Pulse Resp BP Pulse Ox 17 137/116 H 96 09/06/20 00:01 09/06/20 00:00 09/06/20 00:01 - Laboratory Results Result Diagrams: 09/05/20 20:34 09/05/20 20:34 Laboratory Results Interpreted: 09/05/20 09/05/20 20:34 20:34 WBC 17.7 H [place] % (Auto) 14.4 H Absolute Neuts (auto) 10.9 H Absolute Monos (auto) 2.5 H Potassium 5.5 H Chloride 92 L Carbon Dioxide 39 H Glucose 166 H Critical Laboratory Results Reviewed: No Critical Results - Radiology Results Critical Radiology Results Reviewed: No Critical Results Discharge - Discharge Clinical Impression: COPD exacerbation Condition: Fair Disposition: ADMITTED INPATIENT Admitting Provider: [facility] Unit Admitted: Telemetry Referrals: ANGELA ROSE MD [Primary Care Provider] - Follow up as needed
[2020-09-05] MEDS: MAGNESIUM SULFATE/D5W 1 GM/100 ML RTUPB IV SCH ×2 (22:38→23:05)
[2020-09-05] MEDS ORDERED: ACETAMINOPHEN 325 MG TABLET PO ONE (23:10)
[2020-09-06] MEDS ORDERED: NORMAL SALINE 1000 ML 1,000 ML IV PRN (00:04)
[2020-09-06] MEDS ORDERED: ACETAMINOPHEN 325 MG TABLET PO PRN (00:04)
[2020-09-06] MEDS ORDERED: LEVALBUTEROL HCL NEB 0.63 MG/3 ML AMPUL NEB PRN (00:04)
[2020-09-06] MEDS ORDERED: SODIUM POLYSTYRENE SULFONATE 15 GM/60 ML PO ONE (00:30)
--- NOTE | 2020-09-06 00:39 | PDOC H&P ---
History of Present Illness Admission Date/PCP: ANGELA ROSE MD Patient complains of: Shortness of breath History of Present Illness: LALA DE LA TORRE is a 49 year old male with a history of COPD who presents with 1 day duration of acute worsening of shortness of breath. Patient reports that at baseline he feels very short of breath with minimal exertion but this afternoon he developed difficulty of breathing even at rest. He took his albuterol inhaler and used his nebulizer multiple times at home but did not notice any significant improvement and presented to the ED for further care. 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 At that time he was checked for COVID-19 and was negative. Patient denies any worsening of cough, fever, chills, hemoptysis, chest pain, palpitation or dizziness. He also denies any nausea, vomiting, any change in his bowel or urinary habits. Past Medical History Cardiac Medical History: Denies: Hyperlipidema, Hypertension Pulmonary Medical History: Reports: Chronic Obstructive Pulmonary Disease (COPD) Neurological Medical History: Reports: Migraine Social History Information Source: Patient Lives with: Family Smoking Status: Former Smoker Hx Recreational Drug Use: No Hx Prescription Drug Abuse: No - Advance Directive Resuscitation Status: Full Code Family History Family History: Reviewed & Not Pertinent Parental Family History Reviewed: Yes Children Family History Reviewed: Yes Sibling(s) Family History Reviewed.: Yes Medication/Allergy Home Medications: Prednisone [Deltasone 20 mg Tablet] 2 tab PO DAILY 4 Days #8 tablet 08/15/20 Albuterol Sulfate [Proair HFA Inhalation Aerosol 8.5 gm MDI] 2 puff IH Q4H #1 mdi 09/03/20 Prednisone [Deltasone 20 mg Tablet] 3 tab PO DAILY 4 Days #12 tablet 09/03/20 Allergies/Adverse Reactions: prednisone Allergy (Verified 09/05/20 21:17) Shortness of Breath Review of Systems Constitutional: ABSENT: chills, fever(s), headache(s), weight gain, weight loss Eyes: ABSENT: visual disturbances Ears: ABSENT: hearing changes Nose, Mouth, and Throat: ABSENT: headache(s), mouth pain, sore throat Cardiovascular: PRESENT: as per HPI Respiratory: PRESENT: as per HPI Gastrointestinal: ABSENT: abdominal pain, constipation, diarrhea, hematemesis, hematochezia, nausea, vomiting Genitourinary: ABSENT: dysuria, hematuria Musculoskeletal: ABSENT: joint swelling Integumentary: ABSENT: rash, wounds Neurological: ABSENT: abnormal gait, abnormal speech, confusion, dizziness, focal weakness, syncope Psychiatric: ABSENT: anxiety, depression, homidical ideation, suicidal ideation Endocrine: ABSENT: cold intolerance, heat intolerance, polydipsia, polyuria Hematologic/Lymphatic: ABSENT: easy bleeding, easy bruising Physical Exam Vital Signs: Temp Pulse Resp BP Pulse Ox 22 H 159/105 H 97 09/05/20 23:13 09/05/20 23:13 09/05/20 23:13 Intake & Output 09/04/20 09/05/20 09/06/20 06:59 06:59 06:59 Intake Total 1200 Balance 1200 Additional comments: GENERAL APPEARANCE: Alert and oriented x3, in no acute distress HEENT: Normocephalic and atraumatic. No scleral icterus. Moist oral mucosa NECK: Supple. No lymphadenopathy or tenderness. No JVD CHEST: Symmetric. Nontender to palpation. LUNGS: Decreased air movement and entry bilaterally but no wheezing or crackles were appreciated HEART: Regular rate and rhythm with normal S1 and S2. No murmurs, gallops, or rubs. ABDOMEN: Flat, soft, active bowel sounds, no direct or rebound tenderness. No organomegaly detected. EXTREMITIES: No cyanosis, clubbing, or edema. MUSCULOSKELETAL: No deformity, atrophy or swelling noted PSYCHIATRIC: Recent and remote memory is intact. Appropriate mood and affect. SKIN: Warm, dry, and well perfused. No lesions or rashes are noted. NEUROLOGIC: No focal sensory or motor deficits are noted. Results Laboratory Results: 09/05/20 20:34 09/05/20 20:34 09/05/20 09/05/20 09/05/20 20:34 20:34 21:42 WBC 17.7 H RBC 5.15 Hgb 16.0 Hct 49.3 MCV 96 MCH 31.1 MCHC 32.5 RDW 13.3 Plt Count 293 Seg Neutrophils % 61.9 Carbonic Acid Cancelled HCO3/H2CO3 Ratio Cancelled ABG pH Cancelled ABG pCO2 Cancelled ABG pO2 Cancelled ABG HCO3 Cancelled ABG O2 Saturation Cancelled ABG Base Excess Cancelled FiO2 Cancelled Sodium 141.2 Potassium 5.5 H Chloride 92 L Carbon Dioxide 39 H Anion Gap 10 BUN 19 Creatinine 1.23 Est GFR ( Amer) > 60 Glucose 166 H Calcium 10.2 Total Bilirubin 1.0 AST 39 Alkaline Phosphatase 72 Total Protein 8.1 Albumin 4.5 09/05/20 20:34 Troponin I < 0.012 Impressions: Chest X-Ray 09/05/20 20:44 IMPRESSION: No acute disease. Assessment and Plan - Diagnosis (1) Acute and chronic respiratory failure with hypoxia Is this a current diagnosis for this admission?: Yes Plan: Patient presents with acute onset shortness of breath Was recently diagnosed with COPD about 2 months back COVID-19 test done 2 days back was negative Oxygen saturation was 81% on arrival Physical examination significant for globally reduced air entry Chest x-ray shows emphysematous changes but no other acute finding was detected Has leukocytosis of 17.4k, but likely to be due to steroid use Currently requiring intranasal oxygen at 2 L/min to saturate mid 90s Placed him on steroid, breathing treatment with levalbuterol due to tachycardia Provide incentive spirometry (2) COPD exacerbation Is this a current diagnosis for this admission?: Yes Plan: Presents with worsening shortness of breath Chest x-ray shows marked emphysematous changes of the lung but no acute finding Currently on steroid, breathing treatment with levalbuterol Placed him on levofloxacin 750 mg p.o. daily Provide incentive spirometry Currently undergoing work-up for cause of COPD with his neurologist (3) Hyperkalemia Is this a current diagnosis for this admission?: Yes Plan: Serum potassium with 5.5 Kidney function is within the normal limit EKG shows sinus tachycardia Give Kayexalate Recheck potassium level in the a.m. (4) Tachycardia Is this a current diagnosis for this admission?: Yes Plan: Patient has been to the ED multiple times in the past 3 weeks and his heart rate was ranging in the 110s and 120s during all his visits Also has hypertension currently not being treated EKG shows sinus tachycardia Will obtain TSH level in the morning If normal may consider obtaining 24-hour urine metanephrine Will provide gentle hydration Consider changing echocardiogram if no improvement (5) Hypertension Is this a current diagnosis for this admission?: Yes Plan: Currently not on any medication Systolic blood pressure ranging in the 150s and 160s, diastolic BP 100 to 110 Currently denies any chest pain, headache Started him on lisinopril 20 mg daily May need adding hydrochlorothiazide - Time Time Spent with patient: 35 or more minutes Total Critical Time (Minutes): 45 Medications reviewed and adjusted accordingly: Yes Anticipated Discharge Disposition: Home, Self Care Anticipated Discharge Timeframe: within 48 hours - Inpatient Certification Based on my medical assessment, after consideration of the patient's comorbidities, presenting symptoms, or acuity I expect that the services needed warrant INPATIENT care.: Yes I certify that my determination is in accordance with my understanding of Medicare's requirements for reasonable and necessary INPATIENT services [42 CFR 412.3e].: Yes Medical Necessity: Failure to Improve With Outpatient Therapy, Need Close Monitoring Due to Risk of Patient Decompensation, Need For Continuous Telemetry Monitoring, Need for Nebulizer Therapy and Monitoring of Response Post Hospital Care: D/C or Transfer Summary
[2020-09-06] MEDS ORDERED: LISINOPRIL 10 MG TABLET PO ONE (01:00)
[2020-09-06] MEDS ORDERED: LEVOFLOXACIN 750 MG TABLET PO ONE (01:00)
[2020-09-06 01:24] LABS: ARTERIAL BLOOD BASE EXCESS 4.7 mmol/L; ARTERIAL BLOOD FIO2 2L; ARTERIAL BLOOD H2CO3 1.91 mmol/L (1.05-1.35); ARTERIAL BLOOD HCO3 32.8 mmol/L (20-24); ARTERIAL BLOOD O2 SATURATION 94.4 % (94-98); ARTERIAL BLOOD PCO2 63.4 mmHg (35-45); ARTERIAL BLOOD PH 7.33 (7.35-7.45); ARTERIAL BLOOD PO2 78.2 mmHg (80-100); ARTERIAL BLOOD TOTAL CO2 34.8 mmol/L (23-27)
[2020-09-06 05:23] LABS: ABSOLUTE LYMPHOCYTES (AUTO) 0.8 10^3/uL (0.5-4.7); ABSOLUTE MONOCYTES (AUTO) 0.4 10^3/uL (0.1-1.4); ABSOLUTE NEUT (AUTO) 8.4 10^3/uL (1.7-8.2); BASOPHILS % (AUTO) 0.5 % (0-2); HEMATOCRIT 41.2 % (37.9-51.0); LYMPHOCYTES % (AUTO) 8.6 % (13-45); MEAN CORPUSCULAR HEMOGLOBIN 31.6 pg (27.0-33.4); MEAN CORPUSCULAR HGB CONC 33.3 g/dL (32.0-36.0); MEAN CORPUSCULAR VOLUME 95 fl (80-97); MONOCYTES % (AUTO) 4.4 % (3-13); PLATELET COUNT 216 10^3/uL (150-450); RED BLOOD COUNT 4.35 10^6/uL (4.35-5.55); RED CELL DISTRIBUTION WIDTH 12.9 % (11.5-14.0); SEGMENTED NEUTROPHILS % (AUTO) 86.5 % (42-78); TOTAL CELLS COUNTED % (AUTO) 100 %; WHITE BLOOD COUNT 9.7 10^3/uL (4.0-10.5)
[2020-09-06 05:30] LABS: ANION GAP 6 (5-19); BLOOD UREA NITROGEN 16 mg/dL (7-20); CALCIUM 8.9 mg/dL (8.4-10.2); CARBON DIOXIDE 36 mmol/L (22-30); CHLORIDE 94 mmol/L (98-107); GLUCOSE 159 mg/dL (75-110); HEMOGLOBIN 13.7 g/dL (13.5-17.0); POTASSIUM 4.8 mmol/L (3.6-5.0)
--- NOTE | 2020-09-06 07:50 | EKG REPORT ---
SEVERITY:- ABNORMAL ECG - SINUS TACHYCARDIA VENTRICULAR PREMATURE COMPLEX PREET, CONSIDER BIATRIAL ABNORMALITIES CONSIDER RIGHT VENTRICULAR HYPERTROPHY BORDERLINE INFERIOR Q WAVES : Confirmed by: Kevin Mercado MD 06-Sep-2020 07:49:42
[2020-09-06] MEDS: FAMOTIDINE 20 MG TABLET PO SCH ×2 (09:45→21:52)
[2020-09-06] MEDS: METHYLPREDNISOLONE INJ 40 MG/1 ML SDV IV SCH ×2 (09:46→21:51)
[2020-09-06] MEDS: ENOXAPARIN SODIUM INJ 40 MG/0.4 ML DISP.SYRIN SUBCUT SCH (09:47)
[2020-09-06] MEDS ORDERED: FLUTICASONE/VILANTEROL 100-25 MCG/DOSE IH SCH (10:00)
[2020-09-06 10:16] LABS: URINE AMPHETAMINES SCREEN NEGATIVE; URINE BENZODIAZEPINES SCREEN NEGATIVE; URINE COCAINE SCREEN NEGATIVE; URINE MARIJUANA (THC) SCREEN NEGATIVE; URINE METHADONE SCREEN NEGATIVE; URINE PHENCYCLIDINE SCREEN NEGATIVE
[2020-09-06] MEDS: FLUTICASONE/UMECLIDIN/VILANTER 100-62.5-25 MCG/DOSE IH SCH (10:36)
[2020-09-06 12:01] LABS: URINE BARBITURATES SCREEN UNCONFIRMED POSITIVE
[2020-09-06] MEDS: BUSPIRONE HCL 10 MG TABLET PO SCH ×2 (13:32→21:52)
--- NOTE | 2020-09-06 16:26 | PDOC PROGRESS REPORT ---
Subjective Date:: 09/06/20 Subjective:: LALA DE LA TORRE is a 49 year old male with a history of COPD who presents with 1 day duration of acute worsening of shortness of breath. Patient reports that at baseline he feels very short of breath with minimal exertion but this afternoon he developed difficulty of breathing even at rest. He took his albuterol inhaler and used his nebulizer multiple times at home but did not notice any significant improvement and presented to the ED for further care. 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 At that time he was checked for COVID-19 and was negative. Patient denies any worsening of cough, fever, chills, hemoptysis, chest pain, palpitation or dizziness. He also denies any nausea, vomiting, any change in his bowel or urinary habits. D2 hospital stay. Patient was seen and examined at bedside. he is on 2L NC reports breathing much better. According to him his Trelegy was switched to Stiotol by Dr. Jackson about 1 week ago. History reviewed, it seems that his SOB is more episodic and he seems to think there may be a component of panic attacks and anxiety as he's had this before. He has a history of anxiety attacks and was previously trialled on zoloft but he said he was unable to tolerate. I have s tarted him on buspar for now. Will continue treatment for COPD exacerbation Reason For Visit: ACUTE HYPOXIC RESPIRATORY FAILURECOPD EXACERBATION Physical Exam Vital Signs: Temp Pulse Resp BP Pulse Ox 98.2 F 95 17 129/82 H 95 09/06/20 11:15 09/06/20 14:00 09/06/20 11:15 09/06/20 11:15 09/06/20 11:15 Intake & Output 09/05/20 09/06/20 09/07/20 06:59 06:59 06:59 Intake Total 1200 420 Output Total 4 Balance 1200 416 Weight 54.4 kg 54.4 kg General appearance: PRESENT: cooperative, mild distress Head exam: PRESENT: atraumatic, normocephalic Eye exam: PRESENT: EOMI, PERRLA Mouth exam: PRESENT: moist Neck exam: PRESENT: full ROM Respiratory exam: PRESENT: clear to auscultation abdifatah, symmetrical, unlabored Cardiovascular exam: PRESENT: RRR, +S1, +S2 GI/Abdominal exam: PRESENT: normal bowel sounds, soft. ABSENT: rebound, tenderness Extremities exam: PRESENT: full ROM Musculoskeletal exam: PRESENT: full ROM Neurological exam: PRESENT: alert, awake, oriented to person, oriented to place, oriented to time, oriented to situation Psychiatric exam: PRESENT: normal mood Skin exam: PRESENT: normal color Results Laboratory Results: 09/06/20 05:03 09/06/20 05:03 09/05/20 09/05/20 09/05/20 20:34 20:34 21:42 WBC 17.7 H RBC 5.15 Hgb 16.0 Hct 49.3 MCV 96 MCH 31.1 MCHC 32.5 RDW 13.3 Plt Count 293 Seg Neutrophils % 61.9 Carbonic Acid Cancelled HCO3/H2CO3 Ratio Cancelled ABG pH Cancelled ABG pCO2 Cancelled ABG pO2 Cancelled ABG HCO3 Cancelled ABG O2 Saturation Cancelled ABG Base Excess Cancelled FiO2 Cancelled Sodium 141.2 Potassium 5.5 H Chloride 92 L Carbon Dioxide 39 H Anion Gap 10 BUN 19 Creatinine 1.23 Est GFR ( Amer) > 60 Glucose 166 H Calcium 10.2 Magnesium Total Bilirubin 1.0 AST 39 Alkaline Phosphatase 72 Total Protein 8.1 Albumin 4.5 TSH 09/05/20 09/06/20 09/06/20 22:10 05:03 05:03 WBC 9.7 RBC 4.35 Hgb 13.7 D Hct 41.2 MCV 95 MCH 31.6 MCHC 33.3 RDW 12.9 Plt Count 216 Seg Neutrophils % 86.5 H Carbonic Acid 1.91 H HCO3/H2CO3 Ratio 17:1 ABG pH 7.33 L ABG pCO2 63.4 H ABG pO2 78.2 L ABG HCO3 32.8 H ABG O2 Saturation 94.4 ABG Base Excess 4.7 FiO2 2L Sodium 136.2 L Potassium 4.8 Chloride 94 L Carbon Dioxide 36 H Anion Gap 6 BUN 16 Creatinine 0.96 Est GFR ( Amer) > 60 Glucose 159 H Calcium 8.9 Magnesium 2.4 H Total Bilirubin AST Alkaline Phosphatase Total Protein Albumin [facility] 09/06/20 05:03 WBC RBC Hgb Hct MCV MCH MCHC RDW Plt Count Seg Neutrophils % Carbonic Acid HCO3/H2CO3 Ratio ABG pH ABG pCO2 ABG pO2 ABG HCO3 ABG O2 Saturation ABG Base Excess FiO2 Sodium Potassium Chloride Carbon Dioxide Anion Gap BUN Creatinine Est GFR ( Amer) Glucose Calcium Magnesium Total Bilirubin AST Alkaline Phosphatase Total Protein Albumin TSH 0.08 L 09/05/20 20:34 Troponin I < 0.012 Impressions: Chest X-Ray 09/05/20 20:44 IMPRESSION: No acute disease. Assessment and Plan - Diagnosis (1) Acute and chronic respiratory failure with hypoxia Is this a current diagnosis for this admission?: Yes Plan: Patient presents with acute onset shortness of breath Was recently diagnosed with COPD about 2 months back COVID-19 test done 2 days back was negative Oxygen saturation was 81% on arrival Physical examination significant for globally reduced air entry Chest x-ray shows emphysematous changes but no other acute finding was detected Has leukocytosis of 17.4k, but likely to be due to steroid use Currently requiring intranasal oxygen at 2 L/min to saturate mid 90s Placed him on steroid, breathing treatment with levalbuterol due to tachycardia Provide incentive spirometry (2) COPD exacerbation Is this a current diagnosis for this admission?: Yes Plan: Presents with worsening shortness of breath- improved Chest x-ray shows marked emphysematous changes of the lung but no acute finding Currently on steroid, breathing treatment with levalbuterol Placed him on levofloxacin 750 mg p.o. daily Provide incentive spirometry Currently undergoing work-up for cause of COPD with his pulm (3) Hyperkalemia Is this a current diagnosis for this admission?: Yes Plan: RESOLVED Serum potassium with 5.5>4.8 Kidney function is within the normal limit EKG shows sinus tachycardia (4) Hypertension Is this a current diagnosis for this admission?: Yes Plan: Currently not on any medication Systolic blood pressure ranging in the 150s and 160s, diastolic BP 100 to 110 Currently denies any chest pain, headache Started him on lisinopril 20 mg daily May need adding hydrochlorothiazide (5) Tachycardia Is this a current diagnosis for this admission?: Yes Plan: Patient has been to the ED multiple times in the past 3 weeks and his heart rate was ranging in the 110s and 120s during all his visits Also has hypertension currently not being treated EKG shows sinus tachycardia TSH <0.08 awaiting FT4 will monitor for now (6) Anxiety Is this a current diagnosis for this admission?: Yes Plan: - previously diagnosed was trialled on klonopin and zoloft - will start Buspar - his episodic SOB may be related to this - Time Time Spent with patient: 25-34 minutes Medications reviewed and adjusted accordingly: Yes Anticipated Discharge Disposition: Home, Self Care Anticipated Discharge Timeframe: TBD
[2020-09-06 17:35] LABS: FREE T3 3.19 pg/mL (2.77-5.27); FREE T4 (FREE THYROXINE) 1.44 ng/dL (0.78-2.19)
[2020-09-06] MEDS: LISINOPRIL 10 MG TABLET PO SCH (21:51)
[2020-09-06] MEDS: LEVOFLOXACIN 750 MG TABLET PO SCH (21:52)
[2020-09-07] MEDS: METHYLPREDNISOLONE INJ 40 MG/1 ML SDV IV SCH (09:29)
[2020-09-07] MEDS: FAMOTIDINE 20 MG TABLET PO SCH ×2 (09:29→22:24)
[2020-09-07] MEDS: BUSPIRONE HCL 10 MG TABLET PO SCH ×2 (09:30→22:23)
[2020-09-07] MEDS: ENOXAPARIN SODIUM INJ 40 MG/0.4 ML DISP.SYRIN SUBCUT SCH (09:30)
[2020-09-07] MEDS: FLUTICASONE/UMECLIDIN/VILANTER 100-62.5-25 MCG/DOSE IH SCH (09:33)
[2020-09-07] MEDS ORDERED: PREDNISONE 20 MG TABLET PO ONE (14:00)
--- NOTE | 2020-09-07 20:43 | PDOC PROGRESS REPORT ---
Subjective Date:: 09/07/20 Subjective:: LALA DE LA TORRE is a 49 year old male with a history of COPD who presents with 1 day duration of acute worsening of shortness of breath. Patient reports that at baseline he feels very short of breath with minimal exertion but this afternoon he developed difficulty of breathing even at rest. He took his albuterol inhaler and used his nebulizer multiple times at home but did not notice any significant improvement and presented to the ED for further care. 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 At that time he was checked for COVID-19 and was negative. Patient denies any worsening of cough, fever, chills, hemoptysis, chest pain, palpitation or dizziness. He also denies any nausea, vomiting, any change in his bowel or urinary habits. D2 hospital stay. Patient was seen and examined at bedside. he is on 2L NC reports breathing much better. According to him his Trelegy was switched to Stiotol by Dr. Jackson about 1 week ago. History reviewed, it seems that his SOB is more episodic and he seems to think there may be a component of panic attacks and anxiety as he's had this before. He has a history of anxiety attacks and was previously trialled on zoloft but he said he was unable to tolerate. I have s tarted him on buspar for now. Will continue treatment for COPD exacerbation D3 hospital stay. Patient was seen and examined at bedside. He is off O2 saturating 95% on room air. patient is insisting he needs O2 for dyspnea on exertion, I told him he does not need this. I have ordered a walking O2 test to see if he desaturates with ambulation. Reason For Visit: ACUTE HYPOXIC RESPIRATORY FAILURECOPD EXACERBATION Physical Exam Vital Signs: Temp Pulse Resp BP Pulse Ox 98.0 F 101 H 16 133/80 H 100 09/07/20 15:10 09/07/20 15:10 09/07/20 15:10 09/07/20 15:10 09/07/20 15:10 Intake & Output 09/06/20 09/07/20 09/08/20 06:59 06:59 06:59 Intake Total 1200 2059 480 Output Total 4 Balance 1200 2055 480 Weight 54.4 kg 58.1 kg General appearance: PRESENT: no acute distress, cooperative Head exam: PRESENT: atraumatic, normocephalic Eye exam: PRESENT: EOMI, PERRLA Mouth exam: PRESENT: moist Neck exam: PRESENT: full ROM Respiratory exam: PRESENT: clear to auscultation abdifatah, symmetrical, unlabored Cardiovascular exam: PRESENT: RRR, +S1, +S2 Pulses: PRESENT: +2 pedal pulses bilateral GI/Abdominal exam: PRESENT: normal bowel sounds, soft. ABSENT: rebound, tenderness Extremities exam: PRESENT: full ROM Musculoskeletal exam: PRESENT: full ROM Neurological exam: PRESENT: alert, awake, oriented to person, oriented to place, oriented to time, oriented to situation Psychiatric exam: PRESENT: normal mood Skin exam: PRESENT: normal color Results Laboratory Results: 09/06/20 05:03 09/06/20 05:03 09/05/20 20:34 Troponin I < 0.012 Impressions: Chest X-Ray 09/05/20 20:44 IMPRESSION: No acute disease. Assessment and Plan - Diagnosis (1) Acute and chronic respiratory failure with hypoxia Is this a current diagnosis for this admission?: Yes Plan: RESOLVED Patient presents with acute onset shortness of breath Was recently diagnosed with COPD about 2 months back COVID-19 test done 2 days back was negative Oxygen saturation was 81% on arrival Physical examination significant for globally reduced air entry Chest x-ray shows emphysematous changes but no other acute finding was detected Has leukocytosis of 17.4k, but likely to be due to steroid use Placed him on steroid, breathing treatment with levalbuterol due to tachycardia Provide incentive spirometry (2) COPD exacerbation Is this a current diagnosis for this admission?: Yes Plan: RESOLVED Presents with worsening shortness of breath- improved Chest x-ray shows marked emphysematous changes of the lung but no acute finding Currently on steroid, breathing treatment with levalbuterol Placed him on levofloxacin 750 mg p.o. daily Provide incentive spirometry Currently undergoing work-up for cause of COPD with his pulm (3) Hyperkalemia Is this a current diagnosis for this admission?: Yes Plan: RESOLVED Serum potassium with 5.5>4.8 Kidney function is within the normal limit EKG shows sinus tachycardia (4) Hypertension Is this a current diagnosis for this admission?: Yes Plan: Currently not on any medication Systolic blood pressure ranging in the 150s and 160s, diastolic BP 100 to 110 Currently denies any chest pain, headache Started him on lisinopril 20 mg daily (5) Tachycardia Is this a current diagnosis for this admission?: Yes Plan: Patient has been to the ED multiple times in the past 3 weeks and his heart rate was ranging in the 110s and 120s during all his visits Also has hypertension currently not being treated EKG shows sinus tachycardia TSH <0.08 awaiting FT4 will monitor for now (6) Anxiety Is this a current diagnosis for this admission?: Yes Plan: - previously diagnosed was trialled on klonopin and zoloft - will start Buspar - his episodic SOB may be related to this (7) Subclinical hyperthyroidism Is this a current diagnosis for this admission?: Yes Plan: - TSH <0.08, FT4 1.44 - he is tachycardic and this may be the cause of his panic attacks - will do [facility]SHALL - Time Time Spent with patient: 25-34 minutes Medications reviewed and adjusted accordingly: Yes Anticipated Discharge Disposition: Home, Self Care Anticipated Discharge Timeframe: TBD
[2020-09-07] MEDS: LEVOFLOXACIN 750 MG TABLET PO SCH (22:23)
[2020-09-07] MEDS: LISINOPRIL 10 MG TABLET PO SCH (22:24)
[2020-09-08] MEDS: FLUTICASONE/UMECLIDIN/VILANTER 100-62.5-25 MCG/DOSE IH SCH (10:12)
[2020-09-08] MEDS: BUSPIRONE HCL 10 MG TABLET PO SCH (10:12)
[2020-09-08] MEDS: FAMOTIDINE 20 MG TABLET PO SCH (10:12)
[2020-09-08] MEDS: ENOXAPARIN SODIUM INJ 40 MG/0.4 ML DISP.SYRIN SUBCUT SCH (10:12)
[2020-09-08 12:37] VITALS: BP 115/73
--- NOTE | 2020-09-08 18:11 | PDOC DISCHARGE SUMMARY ---
Impression - Admit/DC Date/PCP Admission Date/Primary Care Provider: 09/06/20 01:16 ANGELA JACKSON MD Discharge Date: 09/08/20 - Discharge Diagnosis (1) Acute and chronic respiratory failure with hypoxia Is this a current diagnosis for this admission?: Yes (2) COPD exacerbation Is this a current diagnosis for this admission?: Yes (3) Hyperkalemia Is this a current diagnosis for this admission?: Yes (4) Hypertension Is this a current diagnosis for this admission?: Yes (5) Tachycardia Is this a current diagnosis for this admission?: Yes (6) Anxiety Is this a current diagnosis for this admission?: Yes (7) Subclinical hyperthyroidism Is this a current diagnosis for this admission?: Yes - Assessment Summary: (1) Acute and chronic respiratory failure with hypoxia Is this a current diagnosis for this admission?: Yes Plan: RESOLVED Patient presents with acute onset shortness of breath Was recently diagnosed with COPD about 2 months back COVID-19 test done 2 days back was negative Oxygen saturation was 81% on arrival Physical examination significant for globally reduced air entry Chest x-ray shows emphysematous changes but no other acute finding was detected Has leukocytosis of 17.4k, but likely to be due to steroid use Placed him on steroid, breathing treatment with levalbuterol due to tachycardia Provide incentive spirometry (2) COPD exacerbation Is this a current diagnosis for this admission?: Yes Plan: RESOLVED Presents with worsening shortness of breath- improved Chest x-ray shows marked emphysematous changes of the lung but no acute finding Currently on steroid, breathing treatment with levalbuterol Placed him on levofloxacin 750 mg p.o. daily Provide incentive spirometry Currently undergoing work-up for cause of COPD with his pulm (3) Hyperkalemia Is this a current diagnosis for this admission?: Yes Plan: RESOLVED Serum potassium with 5.5>4.8 Kidney function is within the normal limit EKG shows sinus tachycardia (4) Hypertension Is this a current diagnosis for this admission?: Yes Plan: Currently not on any medication Systolic blood pressure ranging in the 150s and 160s, diastolic BP 100 to 110 Currently denies any chest pain, headache Started him on lisinopril 20 mg daily (5) Tachycardia Is this a current diagnosis for this admission?: Yes Plan: Patient has been to the ED multiple times in the past 3 weeks and his heart rate was ranging in the 110s and 120s during all his visits Also has hypertension currently not being treated EKG shows sinus tachycardia TSH <0.08 awaiting FT4 will monitor for now (6) Anxiety Is this a current diagnosis for this admission?: Yes Plan: - previously diagnosed was trialled on klonopin and zoloft - will start Buspar - his episodic SOB may be related to this (7) Subclinical hyperthyroidism Is this a current diagnosis for this admission?: Yes Plan: - TSH <0.08, FT4 1.44 - he is tachycardic and this may be the cause of his panic attacks - will do MARSHALL - Additional Information Resuscitation Status: Full Code Discharge Diet: As Tolerated Discharge Activity: Activity As Tolerated [facility]: [facility] [NO LOCAL MD] - Prescriptions: Buspirone HCl [Buspar 10 mg Tablet] 10 mg PO Q12 30 Days #30 tablet Levofloxacin [Levaquin 750 mg Tablet] 750 mg PO QHS 3 Days #3 tablet Lisinopril [Prinivil 10 mg Tablet] 20 mg PO QHS 30 Days #30 tablet Home Medications: Albuterol Sulfate [Proair HFA Inhalation Aerosol 8.5 gm MDI] 2 puff IH Q4H #1 mdi 09/03/20 Prednisone [Deltasone 20 mg Tablet] 3 tab PO DAILY 4 Days #12 tablet 09/03/20 Buspirone HCl [Buspar 10 mg Tablet] 10 mg PO Q12 30 Days #30 tablet 09/08/20 Levofloxacin [Levaquin 750 mg Tablet] 750 mg PO QHS 3 Days #3 tablet 09/08/20 Lisinopril [Prinivil 10 mg Tablet] 20 mg PO QHS 30 Days #30 tablet 09/08/20 History of Present Illiness History of Present Illness: LALA DE LA TORRE is a 49 year old male, with a history of COPD who presents with 1 day duration of acute worsening of shortness of breath. Patient reports that at baseline he feels very short of breath with minimal exertion but this afternoon he developed difficulty of breathing even at rest. He took his albuterol inhaler and used his nebulizer multiple times at home but did not notice any significant improvement and presented to the ED for further care. 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 At that time he was checked for COVID-19 and was negative. Patient denies any worsening of cough, fever, chills, hemoptysis, chest pain, palpitation or dizziness. He also denies any nausea, vomiting, any change in his bowel or urinary habits. Hospital Course Hospital Course: D2 hospital stay. Patient was seen and examined at bedside. he is on 2L NC reports breathing much better. According to him his Trelegy was switched to Stiotol by Dr. Jackson about 1 week ago. History reviewed, it seems that his SOB is more episodic and he seems to think there may be a component of panic attacks and anxiety as he's had this before. He has a history of anxiety attacks and was previously trialled on zoloft but he said he was unable to tolerate. I have started him on buspar for now. Will continue treatment for COPD exacerbation D3 hospital stay. Patient was seen and examined at bedside. He is off O2 saturating 95% on room air. patient is insisting he needs O2 for dyspnea on exertion, I told him he does not need this. I have ordered a walking O2 test to see if he desaturates with ambulation. D3 hospital stay. patient remained stable off O2. MARSHALL was ordered to work up for possible subclinical hyperthyroidism however due to holiday hours the next schedule in patient will be next week sunday. As this is not urgent I have put in my discharge instructions that he would need another order for MARSHALL in the outpatient setting. He is otherwise stable for discharge. Physical Exam Vital Signs: Temp Pulse Resp BP Pulse Ox 98.3 F 109 H 16 115/73 93 09/08/20 12:33 09/08/20 12:33 09/08/20 12:33 09/08/20 12:33 09/08/20 12:33 Intake & Output 09/07/20 09/08/20 09/09/20 06:59 06:59 06:59 Intake Total 0 740 260 Output Total 4 260 Balance 2055 480 260 Weight 58.1 kg 56.8 kg General appearance: PRESENT: no acute distress, cooperative Head exam: PRESENT: atraumatic, normocephalic Eye exam: PRESENT: EOMI, PERRLA Mouth exam: PRESENT: moist Neck exam: PRESENT: full ROM Respiratory exam: PRESENT: clear to auscultation abdifatah, symmetrical, unlabored Cardiovascular exam: PRESENT: RRR, +S1, +S2 Pulses: PRESENT: +2 pedal pulses bilateral GI/Abdominal exam: PRESENT: normal bowel sounds, soft. ABSENT: rebound, tenderness Extremities exam: PRESENT: full ROM Musculoskeletal exam: PRESENT: full ROM Neurological exam: PRESENT: alert, oriented to place, oriented to time, oriented to situation Psychiatric exam: PRESENT: normal mood Skin exam: PRESENT: normal color Results Laboratory Results: WBC 9.7 10^3/uL (4.0-10.5) 09/06/20 05:03 RBC 4.35 10^6/uL (4.35-5.55) 09/06/20 05:03 Hgb 13.7 g/dL (13.5-17.0) D 09/06/20 05:03 Hct 41.2 % (37.9-51.0) 09/06/20 05:03 MCV 95 fl (80-97) 09/06/20 05:03 MCH 31.6 pg (27.0-33.4) 09/06/20 05:03 MCHC 33.3 g/dL (32.0-36.0) 09/06/20 05:03 RDW 12.9 % (11.5-14.0) 09/06/20 05:03 Plt Count 216 10^3/uL (150-450) 09/06/20 05:03 Lymph % (Auto) 8.6 % (13-45) L 09/06/20 05:03 [place] % (Auto) 4.4 % (3-13) 09/06/20 05:03 Eos % (Auto) 0.0 % (0-6) 09/06/20 05:03 Baso % (Auto) 0.5 % (0-2) 09/06/20 05:03 Absolute Neuts (auto) 8.4 10^3/uL (1.7-8.2) H 09/06/20 05:03 Absolute Lymphs (auto) 0.8 10^3/uL (0.5-4.7) 09/06/20 05:03 Absolute Monos (auto) 0.4 10^3/uL (0.1-1.4) 09/06/20 05:03 Absolute Eos (auto) 0.0 10^3/uL (0.0-0.6) 09/06/20 05:03 Absolute Basos (auto) 0.0 10^3/uL (0.0-0.2) 09/06/20 05:03 Seg Neutrophils % 86.5 % (42-78) H 09/06/20 05:03 D-Dimer 0.29 ug/mL (0.00-0.50) 09/05/20 20:34 Carbonic Acid 1.91 mmol/L (1.05-1.35) H 09/05/20 22:10 HCO3/H2CO3 Ratio 17:1 09/05/20 22:10 ABG pH 7.33 (7.35-7.45) L 09/05/20 22:10 ABG pCO2 63.4 mmHg (35-45) H 09/05/20 22:10 ABG pO2 78.2 mmHg (80-100) L 09/05/20 22:10 ABG HCO3 32.8 mmol/L (20-24) H 09/05/20 22:10 ABG Total CO2 34.8 mmol/L (23-27) H 09/05/20 22:10 ABG O2 Saturation 94.4 % (94-98) 09/05/20 22:10 ABG Base Excess 4.7 mmol/L 09/05/20 22:10 FiO2 2L 09/05/20 22:10 Sodium 136.2 mmol/L (137-145) L 09/06/20 05:03 Potassium 4.8 mmol/L (3.6-5.0) 09/06/20 05:03 Chloride 94 mmol/L (98-107) L 09/06/20 05:03 Carbon Dioxide 36 mmol/L (22-30) H 09/06/20 05:03 Anion Gap 6 (5-19) 09/06/20 05:03 BUN 16 mg/dL (7-20) 09/06/20 05:03 Creatinine 0.96 mg/dL (0.52-1.25) 09/06/20 05:03 Est GFR ( Amer) > 60 (>60) 09/06/20 05:03 Est GFR (MDRD) Non-Af > 60 (>60) 09/06/20 05:03 Glucose 159 mg/dL (75-110) H 09/06/20 05:03 Calcium 8.9 mg/dL (8.4-10.2) 09/06/20 05:03 Magnesium 2.4 mg/dL (1.6-2.3) H 09/06/20 05:03 Total Bilirubin 1.0 mg/dL (0.2-1.3) 09/05/20 20:34 Direct Bilirubin 0.3 mg/dL (0.0-0.4) 09/05/20 20:34 Neonat Total Bilirubin Not Reportable 09/05/20 20:34 Neonat Direct Bilirubin Not Reportable 09/05/20 20:34 Neonat Indirect Bili Not Reportable 09/05/20 20:34 AST 39 U/L (17-59) 09/05/20 20:34 ALT 40 U/L (<50) 09/05/20 20:34 Alkaline Phosphatase 72 U/L (38-126) 09/05/20 20:34 Troponin I < 0.012 ng/mL 09/05/20 20:34 Total Protein 8.1 g/dL (6.3-8.2) 09/05/20 20:34 Albumin 4.5 g/dL (3.5-5.0) 09/05/20 20:34 TSH 0.08 uIU/mL (0.47-4.68) L 09/06/20 05:03 Free T4 1.44 ng/dL (0.78-2.19) 09/06/20 05:03 Free T3 pg/mL 3.19 pg/mL (2.77-5.27) 09/06/20 05:03 Urine Opiates Screen NEGATIVE 09/06/20 06:00 Urine Methadone Screen NEGATIVE 09/06/20 06:00 Ur Barbiturates Screen UNCONFIRMED POSITIVE 09/06/20 06:00 Ur Phencyclidine Scrn NEGATIVE 09/06/20 06:00 Ur Amphetamines Screen NEGATIVE 09/06/20 06:00 U Benzodiazepines Scrn NEGATIVE 09/06/20 06:00 Urine Cocaine Screen NEGATIVE 09/06/20 06:00 U Marijuana (THC) Screen NEGATIVE 09/06/20 06:00 09/05/20 20:34 Troponin I < 0.012 Impressions: Chest X-Ray 09/05/20 20:44 IMPRESSION: No acute disease. Plan Plan of Treatment: - ff.up at [facility] for PCP and MARSHALL request for subclinical hyperthyroidism as a cause for his tachycardia and frequent panic/anxiety attack Stroke Is this a Stroke Patient?: No Acute Heart Failure Is this a Heart Failure Patient?: No
[2020-09-09 06:37] LABS: THYROID PEROXIDASE (TPO) AB <9 IU/mL (0-34)
[2020-09-09 07:30] LABS: THYROGLOBULIN AB <1.0 IU/mL (0.0-0.9)
== END 2020-09-08 14:12 | disposition home or self-care (01) ==
LOC: ER 20:25 → EH 09-06 01:16 → INTOOBSV 09-06 01:16 → 4S 09-06 02:42
PROVIDERS: ADMIT Student in an Organized Health Care Education/Training Program; ATTEND Internal Medicine
DX: J96.21 Acute and chronic respiratory failure with hypoxia (principal); J44.1 Chronic obstructive pulmonary disease with (acute) exacerbation; E87.5 Hyperkalemia; I10 Essential (primary) hypertension; R00.0 Tachycardia, unspecified; F41.0 Panic disorder [episodic paroxysmal anxiety]; E05.80 Other thyrotoxicosis without thyrotoxic crisis or storm; D72.829 Elevated white blood cell count, unspecified; Z79.899 Other long term (current) drug therapy; Z87.891 Personal history of nicotine dependence
CPT/HCPCS: 93005; 94640 ×2; 99285; 96361; 96375; 96365; 36415 ×2; 84439; 82803; 83735; 84443; 85025 ×2; 80048; 80053; 84484; 86376; 80307; 84481; 85379; 71045; 93010; 94660 ×2; G0378 ×4; J2920 ×2; J2930; J1650 ×3; J3475; J7512; J7030 ×2; J7614; J3490

== ENCOUNTER 2020-09-12 00:14 | Emergency (ER) | payer OTHER ==
[2020-09-12 00:50] LABS: HEMATOCRIT 45.8 % (37.9-51.0); HEMOGLOBIN 15.2 g/dL (13.5-17.0); MEAN CORPUSCULAR HGB CONC 33.1 g/dL (32.0-36.0); MEAN CORPUSCULAR VOLUME 96 fl (80-97); RED BLOOD COUNT 4.75 10^6/uL (4.35-5.55); WHITE BLOOD COUNT 27.7 10^3/uL (4.0-10.5)
[2020-09-12 01:00] LABS: ALBUMIN 4.2 g/dL (3.5-5.0); ALKALINE PHOSPHATASE 49 U/L (38-126); ANION GAP 6 (5-19); ASPARTATE AMINO TRANSFERASE 34 U/L (17-59); BILIRUBIN,DIRECT 0.3 mg/dL (0.0-0.4); BILIRUBIN,TOTAL 0.5 mg/dL (0.2-1.3); BLOOD UREA NITROGEN 29 mg/dL (7-20); CALCIUM 9.2 mg/dL (8.4-10.2); CARBON DIOXIDE 37 mmol/L (22-30); CHLORIDE 92 mmol/L (98-107); GLUCOSE 114 mg/dL (75-110); POTASSIUM 4.3 mmol/L (3.6-5.0); TOTAL PROTEIN 7.5 g/dL (6.3-8.2)
[2020-09-12 01:12] LABS: ABSOLUTE MONOCYTES # (MANUAL) 0.3 10^3/uL (0.1-1.4); BASOPHILS % (MANUAL) 0 % (0-2); EOSINOPHILS % (MANUAL) 0 % (0-6); LYMPHOCYTES % (MANUAL) 9 % (13-45); METAMYELOCYTES % (MANUAL) 1 % (0-1); MONOCYTES % (MANUAL) 1 % (3-13); SEGMENTED NEUTROPHILS % (MAN) 87 % (42-78); TOTAL CELLS COUNTED 100
[2020-09-12 01:13] LABS: ANISOCYTOSIS SLIGHT; PLATELET CLUMPS PRESENT; PLATELET COMMENT DECREASED; TEAR DROP CELLS SLIGHT; TOXIC GRANULATION 1+
[2020-09-12 01:14] LABS: PLATELET COUNT 225 10^3/uL (150-450)
[2020-09-12] MEDS ORDERED: ACETAMINOPHEN 325 MG TABLET PO ONE (01:19)
--- NOTE | 2020-09-12 02:24 | RADIOLOGY REPORT (SQ) ---
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 Comparison: Chest radiograph performed 09/05/2020. Findings: The cardiomediastinal silhouette is normal in size. No pneumothorax is seen. No acute airspace opacities are seen. No discrete pleural effusion is apparent. There are emphysematous changes noted within the lungs. Impression: No acute airspace opacities are seen.
--- NOTE | 2020-09-12 02:32 | ER Document Report ---
ED Respiratory Problem - General Chief Complaint: Shortness Of Breath Stated Complaint: DIFFICULTY BREATHING Time Seen by Provider: 09/12/20 01:10 Primary Care Provider: VIPIN DOLL PA-C [Primary Care Provider] - Follow up in 3-5 days Notes: Patient is a 49-year-old male who presents emergency department with a chief complaint of shortness of breath and difficulty breathing. Patient just was recently released from the hospital with steroids. States that his last dose of steroids was yesterday. States that he had been on steroids for quite a while. He had been using his albuterol inhaler and his corticosteroid inhalers as prescribed. EMS brought the patient and gave him 125 mg of Solu-Medrol, Xopenex, and albuterol/Atrovent. States that he does feel better with his breathing. States that he feels like he needs oxygen at home. States he attempted to get himself relaxed at home with breathing techniques, but stated, "it didn't work." - Related Data Allergies/Adverse Reactions: No Known Allergies Allergy (Unverified 09/12/20 01:25) Past Medical History - Social History Smoking Status: Former Smoker Family History: Reviewed & Not Pertinent - Past Medical History Cardiac Medical History: Reports: Hx Hypertension Denies: Hx Hypercholesterolemia Pulmonary Medical History: Reports: Hx COPD Neurological Medical History: Reports: Hx Migraine Psychiatric Medical History: Reports: Hx Depression Review of Systems - Review of Systems Notes: REVIEW OF SYSTEMS: CONSTITUTIONAL : Denies recent illness. Denies recent unintentional weight loss. Denies fever, chills, or sweats. EENT: Denies eye, ear, throat, or mouth pain, discharge, or symptoms. Denies nasal or sinus congestion. CARDIOVASCULAR: Denies chest pain. RESPIRATORY: See HPI. GASTROINTESTINAL: Denies nausea, vomiting, and diarrhea. Denies abdominal pain. Denies constipation. GENITOURINARY: Denies difficulty urinating, burning, blood in urine, urgency or frequency. MUSCULOSKELETAL: Denies neck and back pain. Denies joint pain or swelling. SKIN: Denies rash, itchiness, or lesions HEMATOLOGIC : Denies easy bruising or bleeding. LYMPHATIC: Denies swollen, painful, enlarged glands. NEUROLOGICAL: Denies no numbness or tingling denies weakness. Denies headache. Denies altered mental status. Denies alteration in speech. PSYCHIATRIC: See HPI. All other systems reviewed and negative. Physical Exam - Vital signs Vitals: Temp Pulse Resp BP Pulse Ox 98.7 F 148 H 21 H 126/97 H 90 L 09/12/20 00:15 09/12/20 00:15 09/12/20 00:15 09/12/20 00:15 09/12/20 00:15 - Notes Notes: PHYSICAL EXAMINATION: GENERAL: Appears well, healthy, well-nourished, no acute distress. HEAD: Normocephalic, atraumatic. EYES: PERRL, conjunctiva normal, all extraocular movements intact, sclera nonicteric ENT: Moist mucous membranes. NECK: Supple, no noticeable swelling, redness, rash. Normal range of motion. LUNGS: Clear lung sounds (this was after EMS gave breathing treatments). CARDIOVASCULAR: Tachycardia, regular rhythm. Radial pulses 2+, normal. ABDOMEN: Normoactive bowel sounds. Soft, nontender, no guarding, no rebound tenderness, and no masses palpated. EXTREMITIES: Normal strength and range of motion, no pitting or edema. No cyanosis. NEUROLOGICAL: Moves all extremities upon command. Strength 5/5 in all extremities. PSYCH: Normal mood, normal affect. SKIN: Warm, dry. No rash, lesions, ulcerations noted. Normal skin turgor. Course - Re-evaluation Re-evalutation: 09/12/20 03:53 CTA of the chest is negative. No pulmonary emboli. Patient has been off oxygen and is currently only at 91% FiO2. Patient's heart rate has gone down on its own to the 110s. We will give the patient some IV fluids to see if this will help bring his heart rate down further. I suspect there is an anxiety component to the patient's heart rate. He does say that he does have some anxiety and is taking his anxiety medication as prescribed from his previous visit. 09/12/20 06:11 Patient's hematology shows a leukocytosis of 27,700 with a left shift. There are no signs of infection, but this may be because of the patient being on steroids for over a month. Urine will be sent for culture. Chemistries show a sodium of 134.8 and a chloride of 92. Patient received a liter of IV fluids. Troponin is negative. Urinalysis is unremarkable. The patient was evaluated during the global COVID-19 pandemic and that diagnosis was suspected/considered upon their initial presentation. Their evaluation, treatment and testing was consistent with current guidelines for patients who present with complaints or symptoms that may be related to COVID-19. Abdominal ultrasound is normal. Patient was walked and his heart rate went to 110s the highest. I suspect again this is due to his anxiety. Patient states that he does feel better and feels safe to go home. I will place the patient on a steroid taper and will refill his think haled corticosteroid. Will also place him on ceterizine. States he is on flonase, but has not been taking it. He has not been on oxygen and has been saturating above 88% on room air, for someone with COPD. 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 He is in agreement with this plan. Follow-up precautions were given. Verbal discharge instructions were given to the patient. They verbalized understanding. They are stable for discharge. - Vital Signs Vital signs: Temp Pulse Resp BP Pulse Ox 97.9 F 103 H 15 128/91 H 93 09/12/20 06:52 09/12/20 06:52 09/12/20 06:52 09/12/20 06:52 09/12/20 06:52 - Laboratory Results Result Diagrams: 09/12/20 00:28 09/12/20 00:28 Laboratory Results Interpreted: 09/12/20 09/12/20 09/12/20 00:28 00:28 05:27 WBC 27.7 H Seg Neuts % (Manual) 87 H Lymphocytes % (Manual) 9 L Monocytes % (Manual) 1 L Abs Neuts (Manual) 24.4 H Sodium 134.8 L Chloride 92 L Carbon Dioxide 37 H BUN 29 H Glucose 114 H Urine Ascorbic Acid 20 H Critical Laboratory Results Reviewed: No Critical Results - Radiology Results Critical Radiology Results Reviewed: No Critical Results - EKG Interpretation by Me Additional EKG results interpreted by me: Sinus tachycardia. Rate 147. OH 112; QRS 80; QT 280; QTc 438. No ST elevations or depressions noted. Slightly peaked T waves and leads V3 and V4. Discharge - Discharge Clinical Impression: Shortness of breath Condition: Stable Disposition: HOME, SELF-CARE Instructions: COVID-19 Guidance for Persons Under Investigation Additional Instructions: You are seen today in the emergency department for shortness of breath. Take your Steroid taper as prescribed. Start cetirizine to help with allergies. Use your inhalers as prescribed. Prescriptions: Cetirizine HCl [All Day Allergy] 10 mg PO DAILY #30 tablet Prednisone 10 mg PO ASDIR PRN #21 tab.ds.pk PRN Reason: Tiotropium Br/Olodaterol HCl [Stiolto Respimat Inhal [place]] 4 gm IH BID #1 mist.inhal Referrals: VIPIN DOLL PA-C [Primary Care Provider] - Follow up in 3-5 days
--- NOTE | 2020-09-12 03:40 | RADIOLOGY REPORT (SQ) ---
EXAM DESCRIPTION: CT CHEST ANGIOGRAPHY WITHOUT THEN WITH IV CONTRAST COMPLETED DATE/TME: 09/12/2020 03:05 CLINICAL HISTORY: 49 years, Male, r/o PE COMPARISON: 08/15/2020 CTA TECHNIQUE: 610 Images stored on PACS. All CT scanners at this facility use dose modulation, iterative reconstruction, and/or weight based dosing when appropriate to reduce radiation dose to as low as reasonably achievable (ALARA). Axial CTA images with coronal and sagittal MIPS [facility]: Dose Right [facility]: CareDose [facility]: Dose Right [facility]: Teradose 4D [facility]: [employer] LIMITATIONS: None. FINDINGS: The mediastinal vasculature enhances normally. No filling defect to suggest pulmonary embolus. Negative for thoracic aortic aneurysm or dissection. Heart and pericardium are unremarkable. Limited evaluation of the upper abdomen is unremarkable. Osseous structures are grossly intact. No pneumothorax. Moderate to severe emphysematous changes. Lungs are clear IMPRESSION: No acute intrathoracic process TECHNICAL DOCUMENTATION: Quality ID # [id number]: Final reports with documentation of one or more dose reduction techniques (e.g., Automated exposure control, adjustment of the mA and/or kV according to patient size, use of iterative reconstruction technique) copyright 2011 [employer]- All Rights Reserved
[2020-09-12] MEDS ORDERED: NORMAL SALINE 1000 ML 1,000 ML IV ONE (03:45)
--- NOTE | 2020-09-12 05:30 | RADIOLOGY REPORT (SQ) ---
EXAM DESCRIPTION: US ABDOMEN LIMITED COMPLETED DATE/TME: 09/12/2020 04:50 CLINICAL HISTORY: 49 years, Male, RUQ pain COMPARISON: 09/03/2020 ultrasound TECHNIQUE: Limited right upper quadrant ultrasound LIMITATIONS: None. FINDINGS: The liver is homogenous in echotexture without focal lesion. No gallstones or gallbladder wall thickening. The CBD measures 2 mm. Pain with palpation over the right upper quadrant. The visualized pancreas, abdominal aorta, inferior vena cava, right kidney are unremarkable. No ascites IMPRESSION: Pain with palpation over the right upper quadrant. Remainder is unremarkable copyright 2010 [employer]- All Rights Reserved
[2020-09-12 05:53] LABS: APPEARANCE,URINE CLEAR; BILIRUBIN,URINE NEGATIVE (NEGATIVE); COLOR,URINE YELLOW; GLUCOSE, URINE NEGATIVE (NEGATIVE); KETONES,URINE NEGATIVE (NEGATIVE); LEUKOCYTE ESTERASE,URINE NEGATIVE (NEGATIVE); NITRITE,URINE NEGATIVE (NEGATIVE); PROTEIN,URINE NEGATIVE (NEGATIVE); URINE SPECIFIC GRAVITY 1.051; UROBILINOGEN,URINE NEGATIVE mg/dL (<2.0)
[2020-09-12] MEDS ORDERED: IPRATROPIUM/ALBUTEROL 0.5-2.5 MG/3 ML AMPUL NEB ONE (06:00)
[2020-09-12] MEDS ORDERED: CETIRIZINE 10 MG TABLET PO ONE (06:19)
[2020-09-12 07:09] VITALS: BP 128/91
--- NOTE | 2020-09-12 09:24 | EKG REPORT ---
SEVERITY:- ABNORMAL ECG - SINUS TACHYCARDIA VENTRICULAR PREMATURE COMPLEX PREET, CONSIDER BIATRIAL ABNORMALITIES PROBABLE INFERIOR INFARCT, OLD : Confirmed by: Kevin Mercado MD 12-Sep-2020 09:23:28
== END 2020-09-12 06:59 | disposition home or self-care (01) ==
LOC: ER 00:14
DX: J44.9 Chronic obstructive pulmonary disease, unspecified (principal); D72.829 Elevated white blood cell count, unspecified; R06.02 Shortness of breath; I10 Essential (primary) hypertension; F41.9 Anxiety disorder, unspecified; Z79.899 Other long term (current) drug therapy; Z79.51 Long term (current) use of inhaled steroids; Z87.891 Personal history of nicotine dependence; Z20.828 Contact with and (suspected) exposure to other viral communicable diseases
CPT/HCPCS: 93005; 94640; 99285; 96360; 96361; 36415; 85025; 87635; 80053; 81001; 84484; 71045; 76705; 71275; 93010; J7030; C9803

== ENCOUNTER 2020-09-24 22:17 | Inpatient (IN) | payer OTHER ==
--- NOTE | 2020-09-24 22:25 | ER Document Report ---
ED General - General Chief Complaint: Respiratory Distress Stated Complaint: RESPIRATORY DISTRESS Time Seen by Provider: 09/24/20 22:24 Primary Care Provider: VIPIN DOLL PA-C [Primary Care Provider] - Follow up as needed - [facility] Notes: 49-year-old male presents with shortness of breath. Patient has a history of COPD, recently diagnosed within the past 3 to 4 months. Patient has been feeling short of breath for the past few days, no known Covid exposures. EMS reports that they found him 86 to 88% on room air with respiratory rate of 20, heart rate 130-140s. EMS states that he had "absent breath sounds". He is administered Xopenex and then A&A neb, EMS states that they thought the A&A neb made him worse so they started CPAP with PEEP of 10. Also administered 2 g of magnesium with 1 g infused MASTER SCHEDULER, also gave 125 mg Solu-Medrol. Patient states that he does not feel that the CPAP change his symptoms at all. - Related Data Allergies/Adverse Reactions: No Known Allergies Allergy (Unverified 09/12/20 01:25) Past Medical History - General Information source: Patient - Social History Smoking Status: Former Smoker Family History: Reviewed & Not Pertinent - Past Medical History Cardiac Medical History: Reports: Hx Hypertension Denies: Hx Hypercholesterolemia Pulmonary Medical History: Reports: Hx COPD Neurological Medical History: Reports: Hx Migraine Psychiatric Medical History: Reports: Hx Depression Review of Systems - Review of Systems Constitutional: denies: Fever EENT: No symptoms reported Cardiovascular: denies: Chest pain Respiratory: Cough, Short of breath Gastrointestinal: No symptoms reported Genitourinary: No symptoms reported Male Genitourinary: No symptoms reported Musculoskeletal: No symptoms reported Skin: No symptoms reported Hematologic/Lymphatic: No symptoms reported Neurological/Psychological: No symptoms reported Physical Exam - Vital signs Vitals: Resp BP Pulse Ox 17 130/94 H 99 09/24/20 22:19 09/24/20 22:19 09/24/20 22:19 - General General appearance: Appears well, Alert - HEENT Head: Normocephalic, Atraumatic Extraocular movements intact: Yes Pupils: PERRL - Respiratory Respiratory status: Other - Patient is able to speak in full sentences. No: Labored, Retractions Breath sounds: Decreased air movement - Bases, Wheezing - Uppers - Cardiovascular Rhythm: Regular, Tachycardia Heart sounds: Normal auscultation Normal capillary refill: Yes - Abdominal Tenderness: Nontender - Extremities General lower extremity: No: Edema - Neurological Neuro grossly intact: Yes Cognition: Normal Orientation: AAOx4 - Psychological Associated symptoms: Normal affect - Skin Skin Temperature: Warm Course - Re-evaluation Re-evalutation: 49-year-old male arrives via EMS for shortness of breath, initiated on CPAP prior to arrival. History of COPD. On exam patient is alert, no apparent distress, able to talk in full sentences, he does have some diminished breath sounds at the bases with wheezing in the uppers. Suspecting COPD versus strong bronchospastic event. Will check for Covid via the pandemic. Will finish off the magnesium bolus and provide additional DuoNeb. Continue on positive pressure ventilation until breath sounds improve. 09/25/20 01:16 Took patient off BiPAP. Breath sounds have markedly improved. He is speaking in full sentences and 100% on room air. We will continue to monitor for a little bit and hope to discharge home. He states that he is on 10 mg of prednisone daily, discussed with him increasing for a 5-day burst 09/25/20 02:45 Leukocytosis present, decreased from previous check, possible reactionary with prednisone use attributing, no left shift. No anemia. Slight hyperkalemia 5.2, no associated EKG changes, he will receive fluids. Bicarb high along with PCO2 high, likely chronic retention with renal compensation. Respiratory panel including Covid negative. Chest x-ray without consolidation. 09/25/20 02:58 Signout given, pending fluids finished and downtrending of heart rate, final reassessment - Vital Signs Vital signs: Temp Pulse Resp BP Pulse Ox 14 123/85 100 09/25/20 00:30 09/25/20 00:30 09/25/20 00:30 - Laboratory Results Result Diagrams: 09/24/20 22:25 09/24/20 22:25 Laboratory Results Interpreted: 09/24/20 09/24/20 09/24/20 22:25 22:25 23:05 WBC 20.6 H RBC 4.28 L Abs Neuts (Manual) 14.0 H Abs Monocytes (Manual) 1.6 H VBG pH 7.26 L VBG pCO2 75.2 H* VBG HCO3 32.8 H Sodium 131.6 L Potassium 5.2 H Chloride 92 L Carbon Dioxide 35 H Glucose 139 H Critical Laboratory Results Reviewed: No Critical Results - Radiology Results Critical Radiology Results Reviewed: No Critical Results - EKG Interpretation by Me Additional EKG results interpreted by me: EKG is interpreted by me. Sinus tachycardia, rate 142. Narrow QRS, QTC within normal limits. No ST segment elevation. Discharge - Discharge Clinical Impression: COPD exacerbation Disposition: HOME, SELF-CARE Additional Instructions: Please increase your prednisone use to 40 mg daily, I have prescribed you extra prednisone so that you may increase this. Please begin course of doxycycline. Please have very close follow-up with your primary care doctor peer return to the emergency department for any concerning worsening symptoms. Prescriptions: Prednisone [Deltasone 20 mg Tablet] 1 tab PO DAILY 5 Days #5 tablet Doxycycline Monohydrate 100 mg PO BID 7 Days #14 capsule Referrals: VIPIN DOLL PA-C [Primary Care Provider] - Follow up as needed
[2020-09-24] MEDS ORDERED: IPRATROPIUM/ALBUTEROL 0.5-2.5 MG/3 ML AMPUL NEB ONE (22:26)
[2020-09-24] MEDS ORDERED: RINGERS SOLUTION,LACTATED 1,000 ML IV ONE (22:27)
[2020-09-24 22:35] LABS: HEMATOCRIT 40.8 % (37.9-51.0); HEMOGLOBIN 13.6 g/dL (13.5-17.0); MEAN CORPUSCULAR HEMOGLOBIN 31.7 pg (27.0-33.4); MEAN CORPUSCULAR HGB CONC 33.2 g/dL (32.0-36.0); MEAN CORPUSCULAR VOLUME 95 fl (80-97); PLATELET COUNT 259 10^3/uL (150-450); RED BLOOD COUNT 4.28 10^6/uL (4.35-5.55); RED CELL DISTRIBUTION WIDTH 13.2 % (11.5-14.0); WHITE BLOOD COUNT 20.6 10^3/uL (4.0-10.5)
[2020-09-24 23:02] LABS: ABSOLUTE LYMPHOCYTES# (MANUAL) 4.7 10^3/uL (0.5-4.7); ABSOLUTE MONOCYTES # (MANUAL) 1.6 10^3/uL (0.1-1.4); BASOPHILS % (MANUAL) 0 % (0-2); EOSINOPHILS % (MANUAL) 1 % (0-6); LYMPHOCYTES % (MANUAL) 16 % (13-45); MONOCYTES % (MANUAL) 8 % (3-13); SEGMENTED NEUTROPHILS % (MAN) 68 % (42-78); TOTAL CELLS COUNTED 100
[2020-09-24 23:03] LABS: ALBUMIN 4.1 g/dL (3.5-5.0); ALKALINE PHOSPHATASE 57 U/L (38-126); ANION GAP 5 (5-19); ASPARTATE AMINO TRANSFERASE 32 U/L (17-59); BILIRUBIN,DIRECT 0.3 mg/dL (0.0-0.4); BILIRUBIN,TOTAL 0.4 mg/dL (0.2-1.3); BLOOD UREA NITROGEN 20 mg/dL (7-20); CALCIUM 9.2 mg/dL (8.4-10.2); CARBON DIOXIDE 35 mmol/L (22-30); CHLORIDE 92 mmol/L (98-107); GLUCOSE 139 mg/dL (75-110); POTASSIUM 5.2 mmol/L (3.6-5.0); TOTAL PROTEIN 7.2 g/dL (6.3-8.2)
[2020-09-24 23:04] LABS: OVALOCYTES SLIGHT; PLATELET COMMENT ADEQUATE; POIKILOCYTOSIS SLIGHT
[2020-09-24 23:33] LABS: VENOUS BLOOD BASE EXCESS 3.1 mmol/L; VENOUS BLOOD HCO3 32.8 mmol/L (20-32); VENOUS BLOOD PH 7.26 (7.30-7.42)
--- NOTE | 2020-09-24 23:33 | RADIOLOGY REPORT (SQ) ---
EXAM DESCRIPTION: XR CHEST 1 VIEW COMPLETED DATE/TME: 09/24/2020 22:44 CLINICAL HISTORY: 49 years, Male, respiratory distress; hx COPD COMPARISON: 09/12/2020 chest NUMBER OF VIEWS: 1 TECHNIQUE: Portable chest LIMITATIONS: None. FINDINGS: Heart size normal. Underlying hyperinflation/COPD. No pneumothorax. Osteopenia. Lungs clear IMPRESSION: COPD. Lungs are clear copyright 2011 [employer]- All Rights Reserved
[2020-09-24 23:40] LABS: VENOUS BLOOD PCO2 75.2 mmHg (35-63)
[2020-09-25] MEDS ORDERED: RINGERS SOLUTION,LACTATED 1,000 ML IV ONE (01:59)
[2020-09-25 03:02] LABS: APPEARANCE,URINE CLEAR; BILIRUBIN,URINE NEGATIVE (NEGATIVE); COLOR,URINE YELLOW; GLUCOSE, URINE NEGATIVE (NEGATIVE); KETONES,URINE TRACE mg/dL (NEGATIVE); LEUKOCYTE ESTERASE,URINE NEGATIVE (NEGATIVE); NITRITE,URINE NEGATIVE (NEGATIVE); PROTEIN,URINE 30 mg/dL (NEGATIVE); URINE SPECIFIC GRAVITY 1.025; UROBILINOGEN,URINE NEGATIVE mg/dL (<2.0)
[2020-09-25 04:01] LABS: ARTERIAL BLOOD BASE EXCESS 3.4 mmol/L; ARTERIAL BLOOD H2CO3 1.45 mmol/L (1.05-1.35); ARTERIAL BLOOD O2 SATURATION 89.9 % (94-98); ARTERIAL BLOOD PCO2 48.1 mmHg (35-45); ARTERIAL BLOOD TOTAL CO2 30.5 mmol/L (23-27)
[2020-09-25 04:02] LABS: ARTERIAL BLOOD FIO2 ROOM AIR
[2020-09-25] MEDS ORDERED: MAG HYDROX/AL HYDROX/SIMETH SUSP 30 ML UDCUP PO PRN (08:30)
[2020-09-25] MEDS ORDERED: MAGNESIUM HYDROXIDE SUSP 30 ML UDCUP PO PRN (08:30)
--- NOTE | 2020-09-25 08:59 | PDOC H&P ---
History of Present Illness Admission Date/PCP: 09/25/20 07:29 VIPIN DOLL PA-C Patient complains of: Shortness of breath History of Present Illness: LALA DE LA TORRE is a 49 year old male with a history significant for tobacco and marijuana use as well as occupational exposure to dust and particulate matter. He was recently diagnosed with COPD at 49 years old. He also has a history of hypertension and anxiety. He sees Vipin Doll for primary care and Dr. Jackson for pulmonology. He has been on Trelegy inhaler but feels it is only marginally helping. He has been treated outpatient with antibiotics and prednisone. Over the last 3 days he has been getting progressively more short of breath. He has been using his albuterol inhaler multiple times a day. He in fact will get short of breath just eating. On presentation to the hospital his chest x-ray and CT scan reveal flattened diaphragms with hyperinflated lungs. No focal infiltrate to suggest pneumonia. Respiratory PCR panel was negative and this includes Covid testing. On evaluation it was also noted that he was in sinus tachycardia with minimally elevated blood pressure. He did require oxygen therapy and exhibited increased work of breathing. His white blood cell count was elevated to 20,000. Blood work also revealed hyperglycemia, mild hyperkalemia and mild hyponatremia. ABG did reveal normal pH with an elevated PCO2 at 48 and a decreased PO2 of 58. The patient will be admitted to the hospitalist service. We will start nebulizer treatments as well as antibiotics. I will give a single dose of methylprednisolone and utilize budesonide every 8 hours by nebulizer. He will have lev albuterol and ipratropium every 8 hours as well. Levalbuterol will be available every 4 hours if needed. We will provide oxygen supplementation to keep his saturation between 88 to 92%. We will monitor his heart rate on telemetry. I will continue his lisinopril depending on his blood pressures. He was recently started on a new medication for anxiety and [facility] and dose. I will also add Singulair and Flonase. I will recommend back to his Trelegy for outpatient treatment. 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 Will discuss further with the patient Family History Family History: Reviewed & Not Pertinent Parental Family History Reviewed: Yes - Both parents alive and well Children Family History Reviewed: Yes - 3 daughters all while Sibling(s) Family History Reviewed.: Yes - 1 sister who is well Medication/Allergy Home Medications: Albuterol Sulfate [Proair HFA Inhalation Aerosol 8.5 gm MDI] 2 puff IH Q4H #1 mdi 09/03/20 Prednisone [Deltasone 20 mg Tablet] 3 tab PO DAILY 4 Days #12 tablet 09/03/20 Buspirone HCl [Buspar 10 mg Tablet] 10 mg PO Q12 30 Days #30 tablet 09/08/20 Levofloxacin [Levaquin 750 mg Tablet] 750 mg PO QHS 3 Days #3 tablet 09/08/20 Lisinopril [Prinivil 10 mg Tablet] 20 mg PO QHS 30 Days #30 tablet 09/08/20 Cetirizine HCl [All Day Allergy] 10 mg PO DAILY #30 tablet 09/12/20 Prednisone 10 mg PO ASDIR PRN #21 tab.ds.pk 09/12/20 Tiotropium Br/Olodaterol HCl [Stiolto Respimat Inhal Archer] 4 gm IH BID #1 mist.inhal 09/12/20 Doxycycline Monohydrate 100 mg PO BID 7 Days #14 capsule 09/25/20 Prednisone [Deltasone 20 mg Tablet] 1 tab PO DAILY 5 Days #5 tablet 09/25/20 Allergies/Adverse Reactions: No Known Allergies Allergy (Unverified 09/12/20 01:25) Review of Systems All systems: reviewed and no additional remarkable complaints except as stated Constitutional: PRESENT: fatigue Respiratory: PRESENT: cough, dyspnea Gastrointestinal: PRESENT: abdominal pain, heartburn Psychiatric: PRESENT: anxiety Physical Exam Vital Signs: Temp Pulse Resp BP Pulse Ox 98.6 F 13 122/83 98 09/25/20 06:35 09/25/20 07:00 09/25/20 07:00 09/25/20 07:00 Intake & Output 09/24/20 09/25/20 09/26/20 06:59 06:59 06:59 Intake Total 1999 Balance 1999 General appearance: PRESENT: cooperative, mild distress, well-developed. ABSENT: disheveled Head exam: PRESENT: atraumatic, normocephalic Eye exam: PRESENT: conjunctiva pink, EOMI, PERRLA. ABSENT: conjunctival injection, scleral icterus Ear exam: PRESENT: normal external ear exam. ABSENT: bleeding, drainage Mouth exam: PRESENT: moist, tongue midline Neck exam: PRESENT: full ROM. ABSENT: carotid bruit, JVD, lymphadenopathy, tracheostomy Respiratory exam: PRESENT: clear to auscultation abdifatah, prolonged expiratory phas, symmetrical, unlabored. ABSENT: accessory muscle use, chest wall tenderness, rales, rhonchi, tachypnea, wheezes Cardiovascular exam: PRESENT: +S1, +S2, tachycardia - Sinus tachycardia. ABSENT: bradycardia, diastolic murmur, irregular rhythm, systolic murmur GI/Abdominal exam: PRESENT: normal bowel sounds, soft, tenderness - Mild tenderness epigastrium towards right upper quadrant. ABSENT: distended, guarding Rectal exam: PRESENT: deferred Gentrourinary exam: ABSENT: indwelling catheter Extremities exam: ABSENT: clubbing, pedal edema Musculoskeletal exam: PRESENT: ambulatory, normal inspection. ABSENT: deformity Neurological exam: PRESENT: alert, awake, oriented to person, oriented to place, oriented to time, oriented to situation, CN II-XII grossly intact. ABSENT: altered, motor sensory deficit Psychiatric exam: PRESENT: anxious, appropriate affect. ABSENT: agitated, manic Focused psych exam: ABSENT: delusional, paranoid, restlessness Skin exam: PRESENT: dry, normal color, warm Results Laboratory Results: 09/24/20 22:25 09/24/20 22:25 09/24/20 09/24/20 09/24/20 22:25 22:25 23:05 WBC 20.6 H RBC 4.28 L Hgb 13.6 Hct 40.8 MCV 95 MCH 31.7 MCHC 33.2 RDW 13.2 Plt Count 259 Seg Neutrophils % Not Reportable Carbonic Acid HCO3/H2CO3 Ratio ABG pH ABG pCO2 ABG pO2 ABG HCO3 ABG O2 Saturation ABG Base Excess VBG pH 7.26 L VBG pCO2 75.2 H* VBG HCO3 32.8 H VBG Base Excess 3.1 FiO2 Sodium 131.6 L Potassium 5.2 H Chloride 92 L Carbon Dioxide 35 H Anion Gap 5 BUN 20 Creatinine 0.88 Est GFR ( Amer) > 60 Glucose 139 H Calcium 9.2 Total Bilirubin 0.4 AST 32 Alkaline Phosphatase 57 Total Protein 7.2 Albumin 4.1 Urine Color Urine Appearance Urine pH Ur Specific Rowena Urine Protein Urine Glucose (UA) Urine Ketones Urine Blood Urine Nitrite Ur Leukocyte Esterase Urine WBC (Auto) 09/25/20 09/25/20 02:13 03:40 WBC RBC Hgb Hct MCV MCH MCHC RDW Plt Count Seg Neutrophils % Carbonic Acid 1.45 H HCO3/H2CO3 Ratio 20:1 ABG pH 7.40 ABG pCO2 48.1 H ABG pO2 58.0 L ABG HCO3 29.0 H ABG O2 Saturation 89.9 L ABG Base Excess 3.4 VBG pH VBG pCO2 VBG HCO3 VBG Base Excess FiO2 ROOM AIR Sodium Potassium Chloride Carbon Dioxide Anion Gap BUN Creatinine Est GFR ( Amer) Glucose Calcium Total Bilirubin AST Alkaline Phosphatase Total Protein Albumin Urine Color YELLOW Urine Appearance CLEAR Urine pH 5.0 Ur Specific Rowena 1.025 Urine Protein 30 H Urine Glucose (UA) NEGATIVE Urine Ketones TRACE H Urine Blood NEGATIVE Urine Nitrite NEGATIVE Ur Leukocyte Esterase NEGATIVE Urine WBC (Auto) 1 Impressions: Chest X-Ray 09/24/20 00:00 IMPRESSION: COPD. Lungs are clear copyright 2011 [employer]- All Rights Reserved Assessment and Plan - Diagnosis (1) Acute and chronic respiratory failure with hypoxia Is this a current diagnosis for this admission?: Yes (2) Leukocytosis Qualifiers: Leukocytosis type: other Qualified Code(s): D72.828 - Other elevated white blood cell count Is this a current diagnosis for this admission?: Yes (3) COPD exacerbation Is this a current diagnosis for this admission?: Yes (4) COPD with acute bronchitis Is this a current diagnosis for this admission?: Yes (5) Hyperkalemia Is this a current diagnosis for this admission?: Yes (6) Hyponatremia Is this a current diagnosis for this admission?: Yes (7) Hyperglycemia Is this a current diagnosis for this admission?: Yes (8) Tachycardia Is this a current diagnosis for this admission?: Yes (9) Hypertension Qualifiers: Hypertension type: essential hypertension Qualified Code(s): I10 - Essential (primary) hypertension Is this a current diagnosis for this admission?: Yes (10) Anxiety Is this a current diagnosis for this admission?: Yes - Plan Summary Summary: (1) Acute and chronic respiratory failure with hypoxia (2) Leukocytosis (3) COPD exacerbation (4) COPD with acute bronchitis (5) Hyperkalemia (6) Hyponatremia (7) Hyperglycemia (8) Tachycardia (9) Hypertension (10) Anxiety 09/25/2020 Acute on chronic respiratory failure with hypoxia due to COPD exacerbation-we will utilize nebulizer therapy initially. Due to tachycardia we will start with lev albuterol, budesonide and ipratropium. I have given a single dose of intravenous steroids as a first step in treatment. I have also ordered lev albuterol nebulizers on an as-needed basis. We will provide supplemental oxygen therapy to keep oxygen saturation 88 to 92%. In addition I will initiate Mucinex therapy and continue the patient's Zyrtec and Flonase. I will also add Singulair therapy. COPD with acute bronchitis-likely bronchitis contributing to the elevated white blood cell count. Will utilize IV doxycycline initially. Leukocytosis-the patient was on low-dose prednisone prior to admission. I would not expect this to elevate the white blood cell count to 20,000. There is likely an infectious process (bronchitis) contributing. Should resolve with IV doxycycline. Anxiety-the patient was just started on BuSpar 10 mg twice daily. The patient in fact has not even picked up the prescription as it was just prescribed 2 days ago. Will initiate and continue BuSpar therapy. I did provide a single dose of oral lorazepam this morning. Sinus tachycardia-the patient was tachycardic on arrival to the emergency department. He did receive nebulizer treatment prior to arrival. I will utilize levalbuterol initially to try and minimize tachycardia. His BUN and creatinine are normal but he did receive 2 L of Ringer's lactate and still has mild tachycardia. Will monitor on telemetry. Hyponatremia-we will monitor. It is mild. May need to fluid restrict for a short while. Hyperkalemia-his potassium was only 5.2. We will recheck electrolytes this afternoon after his IV fluids. Hyperglycemia-this could be related to steroid therapy. Will monitor serum glucose with laboratory studies initially. Consider checking hemoglobin A1c. Hypertension-the patient is on lisinopril as an outpatient. His blood pressures were only mildly hypertensive. We will need to consider the possibility of hypotension before administering his home dose of lisinopril - Time Time Spent with patient: 35 or more minutes Medications reviewed and adjusted accordingly: Yes Anticipated Discharge Disposition: Home, Self Care Anticipated Discharge Timeframe: within 72 hours - Inpatient Certification Based on my medical assessment, after consideration of the patient's comorbidities, presenting symptoms, or acuity I expect that the services needed warrant INPATIENT care.: Yes I certify that my determination is in accordance with my understanding of Medicare's requirements for reasonable and necessary INPATIENT services [42 CFR 412.3e].: Yes Medical Necessity: Failure to Improve With Outpatient Therapy, Need Close Monitoring Due to Risk of Patient Decompensation, Need For Continuous Telemetry Monitoring, Need for Nebulizer Therapy and Monitoring of Response, Need for IV Antibiotics Post Hospital Care: D/C or Transfer Summary
[2020-09-25] MEDS ORDERED: CETIRIZINE 10 MG TABLET PO SCH (10:00)
[2020-09-25] MEDS ORDERED: BUSPIRONE HCL 10 MG TABLET PO SCH (10:00)
[2020-09-25] MEDS ORDERED: METHYLPREDNISOLONE INJ 125 MG/2 ML SDV IV ONE (10:30)
[2020-09-25] MEDS ORDERED: LORAZEPAM 0.5 MG TABLET PO ONE (10:30)
[2020-09-25] MEDS: PANTOPRAZOLE SODIUM 40 MG TABLET.DR PO SCH (11:15)
[2020-09-25] MEDS: GUAIFENESIN 600 MG TABLET.SA PO SCH ×2 (11:16→22:11)
[2020-09-25] MEDS: ENOXAPARIN SODIUM INJ 40 MG/0.4 ML DISP.SYRIN SUBCUT SCH (11:17)
[2020-09-25] MEDS: FLUTICASONE NASAL SPRAY 50 MCG/SPRY 120 SPRAY/16 GM NASL SCH ×2 (12:44→22:10)
[2020-09-25] MEDS: DOXYCYCLINE HYCLATE 100 MG in DEXTROSE 5%-WATER 250 ML IV SCH ×2 (12:45→22:11)
[2020-09-25] MEDS: BUDESONIDE NEB 0.5 MG/2 ML AMPUL NEB SCH (15:59)
[2020-09-25] MEDS: IPRATROPIUM BROMIDE 0.02% NEB 0.5 MG/2.5 ML AMPUL NEB SCH (15:59)
[2020-09-25] MEDS: LEVALBUTEROL HCL NEB 1.25 MG/3 ML AMPUL NEB SCH (15:59)
[2020-09-25 16:50] LABS: BLOOD UREA NITROGEN 17 mg/dL (7-20); CALCIUM 9.3 mg/dL (8.4-10.2); GLUCOSE 128 mg/dL (75-110); POTASSIUM 4.9 mmol/L (3.6-5.0)
[2020-09-25 16:55] LABS: CARBON DIOXIDE 36 mmol/L (22-30); CHLORIDE 91 mmol/L (98-107)
[2020-09-25 16:57] LABS: ANION GAP 4 (5-19)
[2020-09-25] MEDS ORDERED: HYDROXYZINE HCL 10 MG TABLET PO PRN (18:29)
[2020-09-25] MEDS: METOPROLOL TARTRATE 25 MG TABLET PO SCH (22:11)
[2020-09-25] MEDS: MONTELUKAST SODIUM 10 MG TABLET PO SCH (22:11)
--- NOTE | 2020-09-25 22:37 | EKG REPORT ---
SEVERITY:- ABNORMAL ECG - SINUS TACHYCARDIA PREET, CONSIDER BIATRIAL ABNORMALITIES RIGHT AXIS DEVIATION : Confirmed by: Manoj Gutierrez 25-Sep-2020 22:36:44
[2020-09-26] MEDS: IPRATROPIUM BROMIDE 0.02% NEB 0.5 MG/2.5 ML AMPUL NEB SCH ×3 (00:20→15:35)
[2020-09-26] MEDS: LEVALBUTEROL HCL NEB 1.25 MG/3 ML AMPUL NEB SCH ×3 (00:20→15:36)
[2020-09-26] MEDS: BUDESONIDE NEB 0.5 MG/2 ML AMPUL NEB SCH ×3 (00:20→15:35)
[2020-09-26 05:25] LABS: ABSOLUTE BASOPHILS # (AUTO) 0.2 10^3/uL (0.0-0.2); ABSOLUTE LYMPHOCYTES (AUTO) 2.8 10^3/uL (0.5-4.7); ABSOLUTE MONOCYTES (AUTO) 1.8 10^3/uL (0.1-1.4); ABSOLUTE NEUT (AUTO) 13.1 10^3/uL (1.7-8.2); BASOPHILS % (AUTO) 0.9 % (0-2); EOSINOPHILS % (AUTO) 0.2 % (0-6); HEMATOCRIT 35.1 % (37.9-51.0); HEMOGLOBIN 11.6 g/dL (13.5-17.0); LYMPHOCYTES % (AUTO) 15.7 % (13-45); MEAN CORPUSCULAR HEMOGLOBIN 30.9 pg (27.0-33.4); MEAN CORPUSCULAR HGB CONC 33.1 g/dL (32.0-36.0); MEAN CORPUSCULAR VOLUME 93 fl (80-97); MONOCYTES % (AUTO) 10.2 % (3-13); PLATELET COUNT 234 10^3/uL (150-450); RED BLOOD COUNT 3.76 10^6/uL (4.35-5.55); RED CELL DISTRIBUTION WIDTH 13.1 % (11.5-14.0); TOTAL CELLS COUNTED % (AUTO) 100 %; WHITE BLOOD COUNT 17.9 10^3/uL (4.0-10.5)
[2020-09-26 05:58] LABS: BLOOD UREA NITROGEN 15 mg/dL (7-20); CALCIUM 8.9 mg/dL (8.4-10.2); GLUCOSE 108 mg/dL (75-110); POTASSIUM 4.7 mmol/L (3.6-5.0)
[2020-09-26 06:04] LABS: CARBON DIOXIDE 35 mmol/L (22-30); CHLORIDE 96 mmol/L (98-107)
[2020-09-26 06:11] LABS: ANION GAP 3 (5-19)
[2020-09-26 06:24] LABS: FREE T4 (FREE THYROXINE) 1.48 ng/dL (0.78-2.19)
[2020-09-26 06:38] LABS: THYROID STIMULATING HORMONE 0.15 uIU/mL (0.47-4.68)
[2020-09-26 07:12] LABS: ARTERIAL BLOOD BASE EXCESS 6.2 mmol/L; ARTERIAL BLOOD H2CO3 1.69 mmol/L (1.05-1.35); ARTERIAL BLOOD HCO3 32.8 mmol/L (20-24); ARTERIAL BLOOD O2 SATURATION 89.7 % (94-98); ARTERIAL BLOOD PCO2 56.3 mmHg (35-45); ARTERIAL BLOOD PH 7.38 (7.35-7.45); ARTERIAL BLOOD PO2 59.1 mmHg (80-100); ARTERIAL BLOOD TOTAL CO2 34.5 mmol/L (23-27)
[2020-09-26 07:13] LABS: ARTERIAL BLOOD FIO2 ROOM AIR
[2020-09-26] MEDS: PANTOPRAZOLE SODIUM 40 MG TABLET.DR PO SCH (08:18)
[2020-09-26] MEDS: LISINOPRIL 10 MG TABLET PO SCH (11:06)
[2020-09-26] MEDS: CETIRIZINE 10 MG TABLET PO SCH (11:06)
[2020-09-26] MEDS: GUAIFENESIN 600 MG TABLET.SA PO SCH ×2 (11:06→22:05)
[2020-09-26] MEDS: FLUTICASONE NASAL SPRAY 50 MCG/SPRY 120 SPRAY/16 GM NASL SCH ×2 (11:08→22:05)
[2020-09-26] MEDS: ENOXAPARIN SODIUM INJ 40 MG/0.4 ML DISP.SYRIN SUBCUT SCH (11:08)
[2020-09-26] MEDS: DOXYCYCLINE HYCLATE 100 MG in DEXTROSE 5%-WATER 250 ML IV SCH ×2 (11:12→22:05)
--- NOTE | 2020-09-26 15:12 | PDOC PROGRESS REPORT ---
Subjective Date:: 09/26/20 Subjective:: The patient reports that he does not feel much better than yesterday. Evidently he did not wear his BiPAP and his PCO2 is actually higher today. Reason For Visit: COPD EXACERBATION,HYPOXIA Physical Exam Vital Signs: Temp Pulse Resp BP Pulse Ox 98.0 F 95 18 98/74 L 100 09/26/20 12:00 09/26/20 12:00 09/26/20 12:00 09/26/20 12:00 09/26/20 12:00 Intake & Output 09/25/20 09/26/20 09/27/20 06:59 06:59 06:59 Intake Total 1999 2340 360 Balance 1999 2340 360 Weight 58 kg General appearance: PRESENT: no acute distress, cooperative, well-developed Head exam: PRESENT: atraumatic, normocephalic Ear exam: PRESENT: normal external ear exam. ABSENT: bleeding, drainage Mouth exam: PRESENT: moist, tongue midline Respiratory exam: PRESENT: clear to auscultation abdifatah, symmetrical, unlabored. ABSENT: accessory muscle use, rales, rhonchi, tachypnea, wheezes Cardiovascular exam: PRESENT: RRR, +S1, +S2. ABSENT: bradycardia, diastolic murmur, systolic murmur, tachycardia GI/Abdominal exam: PRESENT: normal bowel sounds, soft. ABSENT: distended, guarding, tenderness Rectal exam: PRESENT: deferred Gentrourinary exam: ABSENT: indwelling catheter Extremities exam: ABSENT: pedal edema Musculoskeletal exam: PRESENT: ambulatory, normal inspection. ABSENT: deformity, dislocation Neurological exam: PRESENT: alert, awake, oriented to person, oriented to place, oriented to time, oriented to situation, CN II-XII grossly intact. ABSENT: altered Psychiatric exam: PRESENT: appropriate affect. ABSENT: agitated, anxious Focused psych exam: ABSENT: delusional, paranoid, restlessness Skin exam: PRESENT: dry, normal color, warm. ABSENT: rash Results Laboratory Results: 09/26/20 04:38 09/26/20 04:38 09/25/20 09/26/20 09/26/20 16:10 04:38 04:38 WBC 17.9 H RBC 3.76 L Hgb 11.6 L Hct 35.1 L MCV 93 MCH 30.9 MCHC 33.1 RDW 13.1 Plt Count 234 Seg Neutrophils % 73.0 Carbonic Acid HCO3/H2CO3 Ratio ABG pH ABG pCO2 ABG pO2 ABG HCO3 ABG O2 Saturation ABG Base Excess FiO2 Sodium 131.1 L Potassium 4.9 Chloride 91 L Carbon Dioxide 36 H Anion Gap 4 L BUN 17 Creatinine 0.81 Est GFR ( Amer) > 60 Glucose 128 H Calcium 9.3 Magnesium 1.8 TSH 0.15 L Free T4 1.48 09/26/20 09/26/20 04:38 06:43 WBC RBC Hgb Hct MCV MCH MCHC RDW Plt Count Seg Neutrophils % Carbonic Acid 1.69 H HCO3/H2CO3 Ratio 19:1 ABG pH 7.38 ABG pCO2 56.3 H ABG pO2 59.1 L ABG HCO3 32.8 H ABG O2 Saturation 89.7 L ABG Base Excess 6.2 FiO2 ROOM AIR Sodium 133.8 L Potassium 4.7 Chloride 96 L Carbon Dioxide 35 H Anion Gap 3 L BUN 15 Creatinine 0.76 Est GFR ( Amer) > 60 Glucose 108 Calcium 8.9 Magnesium 1.7 TSH Free T4 Impressions: Chest X-Ray 09/24/20 00:00 IMPRESSION: COPD. Lungs are clear copyright 2011 [employer]- All Rights Reserved Assessment and Plan - Diagnosis (1) Acute on chronic respiratory failure with hypoxia and hypercapnia Is this a current diagnosis for this admission?: Yes (2) Leukocytosis Qualifiers: Leukocytosis type: other Qualified Code(s): D72.828 - Other elevated white blood cell count Is this a current diagnosis for this admission?: Yes (3) COPD exacerbation Is this a current diagnosis for this admission?: Yes (4) COPD with acute bronchitis Is this a current diagnosis for this admission?: Yes (5) Hyperkalemia Is this a current diagnosis for this admission?: Yes (6) Hyponatremia Is this a current diagnosis for this admission?: Yes (7) Hyperglycemia Is this a current diagnosis for this admission?: Yes (8) Tachycardia Is this a current diagnosis for this admission?: Yes (9) Hypertension Qualifiers: Hypertension type: essential hypertension Qualified Code(s): I10 - Essential (primary) hypertension Is this a current diagnosis for this admission?: Yes (10) Anxiety Is this a current diagnosis for this admission?: Yes (11) Gastroesophageal reflux Qualifiers: Esophagitis presence: esophagitis presence not specified Qualified Code(s): K21.9 - Gastro-esophageal reflux disease without esophagitis Is this a current diagnosis for this admission?: Yes (12) Gastritis Qualifiers: Gastritis type: other gastritis Chronicity: chronic Gastritis bleeding: without bleeding Qualified Code(s): K29.50 - Unspecified chronic gastritis without bleeding Is this a current diagnosis for this admission?: Yes (13) Hyperthyroidism Is this a current diagnosis for this admission?: Yes - Plan Summary Summary: (1) Acute and chronic respiratory failure with hypoxia and hypercapnea (2) Leukocytosis (3) COPD exacerbation (4) COPD with acute bronchitis (5) Hyperkalemia (6) Hyponatremia (7) Hyperglycemia (8) Tachycardia (9) Hypertension (10) Anxiety (11) GERD (12) Gastritis (13) Hyperthyroidism 09/25/2020 Acute on chronic respiratory failure with hypoxia due to COPD exacerbation-we will utilize nebulizer therapy initially. Due to tachycardia we will start with lev albuterol, budesonide and ipratropium. I have given a single dose of intravenous steroids as a first step in treatment. I have also ordered lev albuterol nebulizers on an as-needed basis. We will provide supplemental oxygen therapy to keep oxygen saturation 88 to 92%. In addition I will initiate Mucinex therapy and continue the patient's Zyrtec and Flonase. I will also add Singulair therapy. COPD with acute bronchitis-likely bronchitis contributing to the elevated white blood cell count. Will utilize IV doxycycline initially. Leukocytosis-the patient was on low-dose prednisone prior to admission. I would not expect this to elevate the white blood cell count to 20,000. There is likely an infectious process (bronchitis) contributing. Should resolve with IV doxycycline. Anxiety-the patient was just started on BuSpar 10 mg twice daily. The patient in fact has not even picked up the prescription as it was just prescribed 2 days ago. Will initiate and continue BuSpar therapy. I did provide a single dose of oral lorazepam this morning. Sinus tachycardia-the patient was tachycardic on arrival to the emergency department. He did receive nebulizer treatment prior to arrival. I will utilize levalbuterol initially to try and minimize tachycardia. His BUN and cr eatinine are normal but he did receive 2 L of Ringer's lactate and still has mild tachycardia. Will monitor on telemetry. Hyponatremia-we will monitor. It is mild. May need to fluid restrict for a short while. Hyperkalemia-his potassium was only 5.2. We will recheck electrolytes this afternoon after his IV fluids. Hyperglycemia-this could be related to steroid therapy. Will monitor serum gluc ose with laboratory studies initially. Consider checking hemoglobin A1c. Hypertension-the patient is on lisinopril as an outpatient. His blood pressures were only mildly hypertensive. We will need to consider the possibility of hypotension before administering his home dose of lisinopril Gastritis with reflux-this could have multiple etiologies. The patient's underlying anxiety as well as recent course of prednisone. Ultrasound study on September 05 did not reveal any acute pathology in the distribution of his tenderness would fit with gastritis and reflux. I have started pantoprazole 40 mg daily. Consider increased dose to twice daily. If once daily does not seem to be effective. No history or evidence of hematemesis or nausea and vomiting for that matter. I will hold off on utilizing Carafate at this time. 09/26/2020 COPD with acute on chronic respiratory failure with hypoxia and hypercapnia-the patient did not utilize BiPAP last night. I discussed this with respiratory therapy. Evidently the order was removed. We will resume BiPAP at the previous settings. We will check another ABG in the morning. His ABG today revealed higher PCO2 than yesterday with a PO2 remaining in the high 50s. Tomorrow initiate Trelegy. Discontinue budesonide. Continue as needed nebulizer treatments. Hyperthyroidism-the T4 was normal but the TSH is suppressed. I will check a free T3 tomorrow. This would explain the tachycardia. I have stopped metoprolol and initiated propranolol therapy. Continue to monitor. Hyponatremia-still below the lower limit normal but improved. Continue to monitor. Hyperkalemia-resolved Hyperglycemia-most likely related to steroids. Accu-Chek is normal today. Hypertension-change to propranolol as noted above. No lisinopril at this time. Cystitis with reflux-continue pantoprazole once daily. Anxiety-could be secondary to his hyperthyroidism. We will certainly monitor with the addition of propranolol. - Time Time Spent with patient: 15-24 minutes Medications reviewed and adjusted accordingly: Yes Anticipated Discharge Disposition: Home, Self Care Anticipated Discharge Timeframe: within 72 hours
[2020-09-26] MEDS: METOPROLOL TARTRATE 25 MG TABLET PO SCH (16:40)
[2020-09-26] MEDS: ACETAMINOPHEN 325 MG TABLET PO PRN (16:44)
[2020-09-26] MEDS: PROPRANOLOL HCL 20 MG TABLET PO SCH (22:02)
[2020-09-26] MEDS: MONTELUKAST SODIUM 10 MG TABLET PO SCH (22:05)
[2020-09-27] MEDS: IPRATROPIUM BROMIDE 0.02% NEB 0.5 MG/2.5 ML AMPUL NEB SCH ×3 (00:10→15:50)
[2020-09-27] MEDS: LEVALBUTEROL HCL NEB 1.25 MG/3 ML AMPUL NEB PRN (00:11)
[2020-09-27] MEDS: PANTOPRAZOLE SODIUM 40 MG TABLET.DR PO SCH ×2 (06:01→17:21)
[2020-09-27 06:45] LABS: HEMATOCRIT 33.9 % (37.9-51.0); HEMOGLOBIN 11.3 g/dL (13.5-17.0); MEAN CORPUSCULAR HEMOGLOBIN 31.5 pg (27.0-33.4); MEAN CORPUSCULAR HGB CONC 33.2 g/dL (32.0-36.0); MEAN CORPUSCULAR VOLUME 95 fl (80-97); PLATELET COUNT 225 10^3/uL (150-450); RED BLOOD COUNT 3.58 10^6/uL (4.35-5.55); RED CELL DISTRIBUTION WIDTH 13.1 % (11.5-14.0); WHITE BLOOD COUNT 12.3 10^3/uL (4.0-10.5)
[2020-09-27 07:05] LABS: ARTERIAL BLOOD BASE EXCESS 9.7 mmol/L; ARTERIAL BLOOD H2CO3 2.12 mmol/L (1.05-1.35); ARTERIAL BLOOD HCO3 37.9 mmol/L (20-24); ARTERIAL BLOOD O2 SATURATION 92.1 % (94-98); ARTERIAL BLOOD PH 7.35 (7.35-7.45); ARTERIAL BLOOD PO2 68.4 mmHg (80-100); ARTERIAL BLOOD TOTAL CO2 40.1 mmol/L (23-27)
[2020-09-27 07:06] LABS: ARTERIAL BLOOD FIO2 28%; ARTERIAL BLOOD PCO2 70.4 mmHg (35-45)
[2020-09-27 07:20] LABS: CALCIUM 8.6 mg/dL (8.4-10.2); CHLORIDE 93 mmol/L (98-107)
[2020-09-27 07:24] LABS: BLOOD UREA NITROGEN 17 mg/dL (7-20); GLUCOSE 82 mg/dL (75-110); POTASSIUM 4.7 mmol/L (3.6-5.0)
[2020-09-27 07:59] LABS: ANION GAP 2 (5-19); CARBON DIOXIDE 38 mmol/L (22-30)
[2020-09-27] MEDS: CETIRIZINE 10 MG TABLET PO SCH (09:33)
[2020-09-27] MEDS: PROPRANOLOL HCL 20 MG TABLET PO SCH ×2 (09:33→21:36)
[2020-09-27] MEDS: ACETAMINOPHEN 325 MG TABLET PO PRN (09:34)
[2020-09-27] MEDS: LISINOPRIL 10 MG TABLET PO SCH (09:34)
[2020-09-27] MEDS: GUAIFENESIN 600 MG TABLET.SA PO SCH ×2 (09:34→21:36)
[2020-09-27] MEDS: DOXYCYCLINE HYCLATE 100 MG in DEXTROSE 5%-WATER 250 ML IV SCH ×2 (09:35→21:27)
[2020-09-27] MEDS: ENOXAPARIN SODIUM INJ 40 MG/0.4 ML DISP.SYRIN SUBCUT SCH (09:36)
[2020-09-27] MEDS: FLUTICASONE NASAL SPRAY 50 MCG/SPRY 120 SPRAY/16 GM NASL SCH ×2 (09:41→21:36)
[2020-09-27] MEDS ORDERED: PREDNISONE 20 MG TABLET PO SCH (10:00)
--- NOTE | 2020-09-27 11:27 | RADIOLOGY REPORT (SQ) ---
EXAM DESCRIPTION: CHEST 2 VIEWS IMAGES COMPLETED DATE/TIME: 09/27/2020 11:14 am REASON FOR STUDY: resp failure COMPARISON: AP and lateral views of the chest from 09/24/2020. EXAM PARAMETERS: NUMBER OF VIEWS: Two views. TECHNIQUE: PA and lateral views of the chest were obtained. RADIATION DOSE: NA LIMITATIONS: None. FINDINGS: LUNGS AND PLEURA: The costophrenic sulci are blunted. The lungs are hyperinflated and the hemidiaphragms are flattened. There is no consolidation or pneumothorax. MEDIASTINUM AND HILAR STRUCTURES: No mediastinal or hilar contour abnormality. HEART AND VASCULAR STRUCTURES: The cardiac silhouette and pulmonary vasculature are within normal murry its. BONES: No acute findings. HARDWARE: None in the chest. OTHER: No other finding. IMPRESSION: Blunting of the costophrenic sulci - this could indicate small bilateral pleural effusio ns or chronic pleural thickening. There is no acute consolidation. TECHNICAL DOCUMENTATION: JOB ID: [id number] 2010 [employer]- All Rights Reserved Reading location - IP/workstation name: [email or web address]
--- NOTE | 2020-09-27 12:07 | PDOC PROGRESS REPORT ---
Subjective Date:: 09/27/20 Subjective:: Patient feels short of breath. He also reports that the the abdominal discomfort has increased. Reason For Visit: COPD EXACERBATION,HYPOXIA Physical Exam Vital Signs: Temp Pulse Resp BP Pulse Ox 98.5 F 101 H 16 117/70 100 09/27/20 10:00 09/27/20 08:10 09/27/20 08:10 09/27/20 08:10 09/27/20 08:10 Intake & Output 09/26/20 09/27/20 09/28/20 06:59 06:59 06:59 Intake Total 2340 870 120 Output Total 300 Balance 2340 570 120 Weight 58 kg 58.2 kg General appearance: PRESENT: cooperative, mild distress - Mild to moderate distress, thin, well-developed Ear exam: PRESENT: normal external ear exam. ABSENT: bleeding, drainage Mouth exam: PRESENT: moist, tongue midline Respiratory exam: PRESENT: clear to auscultation abdifatah, symmetrical, unlabored. ABSENT: accessory muscle use, rales, rhonchi, tachypnea, wheezes Cardiovascular exam: PRESENT: RRR, +S1, +S2. ABSENT: bradycardia, diastolic murmur, irregular rhythm, systolic murmur, tachycardia GI/Abdominal exam: PRESENT: normal bowel sounds, soft, tenderness - Epigastrium towards the right upper quadrant.. ABSENT: distended Rectal exam: PRESENT: deferred Gentrourinary exam: ABSENT: indwelling catheter Musculoskeletal exam: PRESENT: ambulatory, normal inspection. ABSENT: deformity, dislocation Neurological exam: PRESENT: alert, awake, oriented to person, oriented to place, oriented to time, oriented to situation, CN II-XII grossly intact. ABSENT: altered Psychiatric exam: PRESENT: anxious, appropriate affect. ABSENT: agitated Focused psych exam: ABSENT: catatonic, delusional, paranoid Skin exam: PRESENT: dry, normal color, warm. ABSENT: rash Results Laboratory Results: 09/27/20 05:17 09/27/20 05:17 09/27/20 09/27/20 09/27/20 05:17 05:17 06:15 WBC 12.3 H RBC 3.58 L Hgb 11.3 L Hct 33.9 L MCV 95 MCH 31.5 MCHC 33.2 RDW 13.1 Plt Count 225 Carbonic Acid HCO3/H2CO3 Ratio ABG pH ABG pCO2 ABG pO2 ABG HCO3 ABG O2 Saturation ABG Base Excess FiO2 Sodium 133.4 L Potassium 4.7 Chloride 93 L Carbon Dioxide 38 H Anion Gap 2 L BUN 17 Creatinine 0.96 Est GFR ( Amer) > 60 Glucose 82 Calcium 8.6 Magnesium 1.5 L Free T3 pg/mL 4.71 09/27/20 06:15 WBC RBC Hgb Hct MCV MCH MCHC RDW Plt Count Carbonic Acid 2.12 H HCO3/H2CO3 Ratio 17:1 ABG pH 7.35 ABG pCO2 70.4 H* ABG pO2 68.4 L ABG HCO3 37.9 H ABG O2 Saturation 92.1 L ABG Base Excess 9.7 FiO2 28% Sodium Potassium Chloride Carbon Dioxide Anion Gap BUN Creatinine Est GFR ( Amer) Glucose Calcium Magnesium Free T3 pg/mL Impressions: Chest X-Ray 09/27/20 00:00 IMPRESSION: Blunting of the costophrenic sulci - this could indicate small bilateral pleural effusions or chronic pleural thickening. There is no acute consolidation. Assessment and Plan - Diagnosis (1) Acute on chronic respiratory failure with hypoxia and hypercapnia Is this a current diagnosis for this admission?: Yes (2) Leukocytosis Qualifiers: Leukocytosis type: other Qualified Code(s): D72.828 - Other elevated white blood cell count Is this a current diagnosis for this admission?: Yes (3) COPD exacerbation Is this a current diagnosis for this admission?: Yes (4) COPD with acute bronchitis Is this a current diagnosis for this admission?: Yes (5) Hyperkalemia Is this a current diagnosis for this admission?: Yes (6) Hyponatremia Is this a current diagnosis for this admission?: Yes (7) Hyperglycemia Is this a current diagnosis for this admission?: Yes (8) Tachycardia Is this a current diagnosis for this admission?: Yes (9) Hypertension Qualifiers: Hypertension type: essential hypertension Qualified Code(s): I10 - Essential (primary) hypertension Is this a current diagnosis for this admission?: Yes (10) Anxiety Is this a current diagnosis for this admission?: Yes (11) Gastroesophageal reflux Qualifiers: Esophagitis presence: esophagitis presence not specified Qualified Code(s): K21.9 - Gastro-esophageal reflux disease without esophagitis Is this a current diagnosis for this admission?: Yes (12) Gastritis Qualifiers: Gastritis type: other gastritis Chronicity: chronic Gastritis bleeding: without bleeding Qualified Code(s): K29.50 - Unspecified chronic gastritis without bleeding Is this a current diagnosis for this admission?: Yes (13) Hyperthyroidism Is this a current diagnosis for this admission?: Yes - Plan Summary Summary: (1) Acute and chronic respiratory failure with hypoxia and hypercapnea (2) Leukocytosis (3) COPD exacerbation (4) COPD with acute bronchitis (5) Hyperkalemia (6) Hyponatremia (7) Hyperglycemia (8) Tachycardia (9) Hypertension (10) Anxiety (11) GERD (12) Gastritis (13) Hyperthyroidism 09/25/2020 Acute on chronic respiratory failure with hypoxia due to COPD exacerbation-we will utilize nebulizer therapy initially. Due to tachycardia we will start with lev albuterol, budesonide and ipratropium. I have given a single dose of intravenous steroids as a first step in treatment. I have also ordered lev albuterol nebulizers on an as-needed basis. We will provide supplemental oxygen therapy to keep oxygen saturation 88 to 92%. In addition I will initiate Mucinex therapy and continue the patient's Zyrtec and Flonase. I will also add Singulair therapy. COPD with acute bronchitis-likely bronchitis contributing to the elevated white blood cell count. Will utilize IV doxycycline initially. Leukocytosis-the patient was on low-dose prednisone prior to admission. I would not expect this to elevate the white blood cell count to 20,000. There is likely an infectious process (bronchitis) contributing. Should resolve with IV doxycycline. Anxiety-the patient was just started on BuSpar 10 mg twice daily. The patient in fact has not even picked up the prescription as it was just prescribed 2 days ago. Will initiate and continue BuSpar therapy. I did provide a single dose of oral lorazepam this morning. Sinus tachycardia-the patient was tachycardic on arrival to the emergency department. He did receive nebulizer treatment prior to arrival. I will utilize levalbuterol initially to try and minimize tachycardia. His BUN and creatinine are normal but he did receive 2 L of Ringer's lactate and still has mild tachycardia. Will monitor on telemetry. Hyponatremia-we will monitor. It is mild. May need to fluid restrict for a short while. Hyperkalemia-his potassium was only 5.2. We will recheck electrolytes this afternoon after his IV fluids. Hyperglycemia-this could be related to steroid therapy. Will monitor serum glucose with laboratory studies initially. Consider checking hemoglobin A1c. Hypertension-the patient is on lisinopril as an outpatient. His blood pressures were only mildly hypertensive. We will need to consider the possibility of hypotension before administering his home dose of lisinopril Gastritis with reflux-this could have multiple etiologies. The patient's underl todd anxiety as well as recent course of prednisone. Ultrasound study on September 05 did not reveal any acute pathology in the distribution of his tenderness would fit with gastritis and reflux. I have started pantoprazole 40 mg daily. Consider increased dose to twice daily. If once daily does not seem to be effective. No history or evidence of hematemesis or nausea and vomiting for that matter. I will hold off on utilizing Carafate at this time. 09/26/2020 COPD with acute on chronic respiratory failure with hypoxia and hypercapnia-the patient did not utilize BiPAP last night. I discussed this with respiratory therapy. Evidently the order was removed. We will resume BiPAP at the previous settings. We will check another ABG in the morning. His ABG today revealed higher PCO2 than yesterday with a PO2 remaining in the high 50s. Tomorrow initiate Trelegy. Discontinue budesonide. Continue as needed nebulizer treatments. Hyperthyroidism-the T4 was normal but the TSH is suppressed. I will check a free T3 tomorrow. This would explain the tachycardia. I have stopped metoprolol and initiated propranolol therapy. Continue to monitor. Hyponatremia-still below the lower limit normal but improved. Continue to monitor. Hyperkalemia-resolved Hyperglycemia-most likely related to steroids. Accu-Chek is normal today. Hypertension-change to propranolol as noted above. No lisinopril at this time. Cystitis with reflux-continue pantoprazole once daily. Anxiety-could be secondary to his hyperthyroidism. We will certainly monitor with the addition of propranolol. 09/27/2020 Exacerbation of COPD with hypoxic and hypercapnic respiratory failure-the patient is tolerating BiPAP. Part of the problem is that they have been letting his oxygen saturations go away above 92% and this has triggered CO2 retention. Dr. Jackson his sewer pipe cleaner also graciously came to see the patient. No changes in his acute regimen. He is having some musculoskeletal chest wall discomfort and anti-inflammatory therapy has been initiated. Hyperthyroidism-the patient has been started on propranolol for his thyroid related tachycardia and I have initiated low-dose methimazole. I also want to try and avoid any benzodiazepine therapy. I have ordered a thyroid ultrasound as well. Hyponatremia-mild and stable Hyperglycemia-improved Hypertension-stable but no additional need especially with the addition of propranolol. Anxiety-Atarax is available. Gastritis and reflux-I have increased the pantoprazole to 40 mg twice daily and added Carafate. - Time Time Spent with patient: 15-24 minutes Medications reviewed and adjusted accordingly: Yes Anticipated Discharge Disposition: Home, Self Care Anticipated Discharge Timeframe: within 72 hours
[2020-09-27] MEDS: MAGNESIUM OXIDE 400 MG TABLET PO SCH (17:21)
[2020-09-27] MEDS: SUCRALFATE 1 GM TABLET PO SCH ×2 (17:21→21:37)
[2020-09-27] MEDS: FLUTICASONE/UMECLIDIN/VILANTER 100-62.5-25 MCG/DOSE IH SCH (17:24)
[2020-09-27] MEDS ORDERED: KETOROLAC TROMETHAMINE INJ/PF 30 MG/1 ML SDV IV PRN (20:21)
[2020-09-27] MEDS: MONTELUKAST SODIUM 10 MG TABLET PO SCH (21:36)
[2020-09-28] MEDS: IPRATROPIUM BROMIDE 0.02% NEB 0.5 MG/2.5 ML AMPUL NEB SCH ×4 (00:36→20:19)
[2020-09-28] MEDS: PANTOPRAZOLE SODIUM 40 MG TABLET.DR PO SCH ×2 (05:55→17:24)
[2020-09-28 06:56] LABS: ARTERIAL BLOOD BASE EXCESS -3.4 mmol/L; ARTERIAL BLOOD H2CO3 0.98 mmol/L (1.05-1.35); ARTERIAL BLOOD HCO3 20.2 mmol/L (20-24); ARTERIAL BLOOD O2 SATURATION 92.3 % (94-98); ARTERIAL BLOOD PCO2 32.5 mmHg (35-45); ARTERIAL BLOOD PH 7.41 (7.35-7.45); ARTERIAL BLOOD TOTAL CO2 21.2 mmol/L (23-27)
[2020-09-28 06:59] LABS: ARTERIAL BLOOD FIO2 21%
[2020-09-28] MEDS: SUCRALFATE 1 GM TABLET PO SCH ×4 (09:07→21:36)
[2020-09-28] MEDS: ENOXAPARIN SODIUM INJ 40 MG/0.4 ML DISP.SYRIN SUBCUT SCH (09:07)
[2020-09-28] MEDS: CETIRIZINE 10 MG TABLET PO SCH (09:07)
[2020-09-28] MEDS: FLUTICASONE NASAL SPRAY 50 MCG/SPRY 120 SPRAY/16 GM NASL SCH ×2 (09:08→21:35)
[2020-09-28] MEDS: METHIMAZOLE 5 MG TABLET PO SCH (09:08)
[2020-09-28] MEDS: GUAIFENESIN 600 MG TABLET.SA PO SCH ×2 (09:08→21:35)
[2020-09-28] MEDS: PROPRANOLOL HCL 20 MG TABLET PO SCH ×2 (09:08→21:37)
[2020-09-28] MEDS: MAGNESIUM OXIDE 400 MG TABLET PO SCH ×3 (09:08→17:24)
[2020-09-28] MEDS: LISINOPRIL 10 MG TABLET PO SCH (09:08)
[2020-09-28] MEDS: FLUTICASONE/UMECLIDIN/VILANTER 100-62.5-25 MCG/DOSE IH SCH (09:09)
[2020-09-28] MEDS: DOXYCYCLINE HYCLATE 100 MG in DEXTROSE 5%-WATER 250 ML IV SCH (09:22)
--- NOTE | 2020-09-28 10:27 | RADIOLOGY REPORT (SQ) ---
EXAM DESCRIPTION: U/S THYROID/SFT TISS HD NECK IMAGES COMPLETED DATE/TIME: 09/28/2020 10:06 am REASON FOR STUDY: Hypothyroidism COMPARISON: None. TECHNIQUE: Dynamic and static castellano-scale images acquired of the thyroid gland. Selected additional c olor/power Doppler images recorded. All images stored to PACS. LIMITATIONS: None. FINDINGS: RIGHT LOBE: Normal size. Homogeneous echotexture. No cystic or solid masses. LEFT LOBE: Normal size. Homogeneous echotexture. No cystic or solid masses. ISTHMUS: Normal size. Homogeneous echotexture. No cystic or solid masses. OTHER: No other significant finding. IMPRESSION: NORMAL THYROID ULTRASOUND. TECHNICAL DOCUMENTATION: JOB ID: [id number] 2010 [employer]- All Rights Reserved Reading location - IP/workstation name: [email or web address]
[2020-09-28] MEDS ORDERED: PREDNISONE 20 MG TABLET PO SCH (18:45)
--- NOTE | 2020-09-28 18:49 | PDOC PROGRESS REPORT ---
Subjective Date:: 09/28/20 Subjective:: Patient was seen on morning rounds. Was found resting in bed, comfortably, on room air. He reports continued dyspnea with minimal activity but otherwise states he is feeling well. He denies fever, chills, chest pain, palpitations, orthopnea, cough, abdominal pain, nausea vomiting diarrhea. He has no questions or concerns at this time. No concerns per nursing. Reason For Visit: COPD EXACERBATION,HYPOXIA Physical Exam Vital Signs: Temp Pulse Resp BP Pulse Ox 98.2 F 95 16 110/58 L 92 09/28/20 12:17 09/28/20 16:18 09/28/20 16:18 09/28/20 12:17 09/28/20 16:18 Intake & Output 09/27/20 09/28/20 09/29/20 06:59 06:59 06:59 Intake Total 1120 2030 650 Output Total 300 300 Balance 820 1730 650 Weight 58.2 kg 57.2 kg General appearance: PRESENT: no acute distress, cooperative, thin, well- developed Head exam: PRESENT: atraumatic, normocephalic Eye exam: PRESENT: conjunctiva pink, EOMI, PERRLA. ABSENT: scleral icterus Mouth exam: PRESENT: moist, tongue midline Respiratory exam: PRESENT: clear to auscultation abdifatah, symmetrical, unlabored, other - Room air. ABSENT: rales, rhonchi, wheezes Cardiovascular exam: PRESENT: RRR. ABSENT: diastolic murmur, rubs, systolic murmur Vascular exam: PRESENT: normal capillary refill Extremities exam: PRESENT: full ROM. ABSENT: calf tenderness, clubbing, pedal edema Musculoskeletal exam: PRESENT: ambulatory Neurological exam: PRESENT: alert, awake, oriented to person, oriented to place, oriented to time, oriented to situation, CN II-XII grossly intact. ABSENT: motor sensory deficit Psychiatric exam: PRESENT: appropriate affect, normal mood. ABSENT: homicidal ideation, suicidal ideation Skin exam: PRESENT: dry, intact, warm. ABSENT: cyanosis, rash Results Laboratory Results: 09/27/20 05:17 09/27/20 05:17 09/28/20 06:10 Carbonic Acid 0.98 L HCO3/H2CO3 Ratio 20:1 ABG pH 7.41 ABG pCO2 32.5 L ABG pO2 62.0 L ABG HCO3 20.2 ABG O2 Saturation 92.3 L ABG Base Excess -3.4 FiO2 21% Impressions: Chest X-Ray 09/27/20 00:00 IMPRESSION: Blunting of the costophrenic sulci - this could indicate small bilateral pleural effusions or chronic pleural thickening. There is no acute consolidation. Thyroid Ultrasound 09/28/20 08:00 IMPRESSION: NORMAL THYROID ULTRASOUND. Assessment and Plan - Diagnosis (1) COPD exacerbation Is this a current diagnosis for this admission?: Yes Plan: Improved; now maintaining oxygen saturations on room air while at rest. Patient is admitted to the medical floor. Continue Trelegy. Will provide supplemental oxygen and BiPAP as needed to maintain saturations greater than 89%. Scheduled and as needed nebulizer treatments. Transition to oral prednisone. Mucinex twice daily. Singulair nightly. Pulmonary toilet is encouraged with incentive spirometer, flutter valve, and early ambulation. (2) COPD with acute bronchitis Is this a current diagnosis for this admission?: Yes Plan: Transition to oral doxycycline. Remaining management as above. (3) Acute on chronic respiratory failure with hypoxia and hypercapnia Is this a current diagnosis for this admission?: Yes Plan: Secondary to #1 and 2. Management as above. (4) Gastritis Qualifiers: Gastritis type: other gastritis Chronicity: chronic Gastritis bleeding: without bleeding Qualified Code(s): K29.50 - Unspecified chronic gastritis without bleeding Is this a current diagnosis for this admission?: Yes Plan: Improved; patient denies pain. Tolerating regular diet. Protonix twice daily. Carafate AC at bedtime. (5) Gastroesophageal reflux Qualifiers: Esophagitis presence: esophagitis presence not specified Qualified Code(s): K21.9 - Gastro-esophageal reflux disease without esophagitis Is this a current diagnosis for this admission?: Yes Plan: Improved; patient denies pain. Tolerating regular diet. H. pylori pending. Protonix twice daily. Carafate AC at bedtime. (6) Hyperthyroidism Is this a current diagnosis for this admission?: Yes Plan: Thyroid ultrasound benign. Continue low-dose methimazole. Continue propanolol. (7) Tachycardia Is this a current diagnosis for this admission?: Yes Plan: Secondary to hyperthyroidism. Improved with the addition of methimazole and propanolol. (8) Anxiety Is this a current diagnosis for this admission?: Yes Plan: Atarax. (9) Hypertension Qualifiers: Hypertension type: essential hypertension Qualified Code(s): I10 - Essential (primary) hypertension Is this a current diagnosis for this admission?: Yes (10) Hyperglycemia Is this a current diagnosis for this admission?: Yes Plan: Resolved. Secondary to steroid therapy. (11) Hyperkalemia Is this a current diagnosis for this admission?: Yes Plan: Resolved. (12) Leukocytosis Qualifiers: Leukocytosis type: other Qualified Code(s): D72.828 - Other elevated white blood cell count Is this a current diagnosis for this admission?: Yes Plan: Trending down. (13) Hyponatremia Is this a current diagnosis for this admission?: Yes Plan: Mild and stable. - Time Time Spent with patient: 25-34 minutes Medications reviewed and adjusted accordingly: Yes Anticipated Discharge Disposition: Home, Self Care Anticipated Discharge Timeframe: within 24 hours
[2020-09-28] MEDS: DOXYCYCLINE HYCLATE 100 MG TABLET PO SCH (21:35)
[2020-09-28] MEDS: MONTELUKAST SODIUM 10 MG TABLET PO SCH (21:36)
[2020-09-28] MEDS ORDERED: PREDNISONE 20 MG TABLET PO ONE (23:00)
[2020-09-29] MEDS: LEVALBUTEROL HCL NEB 1.25 MG/3 ML AMPUL NEB PRN (01:56)
[2020-09-29] MEDS: PANTOPRAZOLE SODIUM 40 MG TABLET.DR PO SCH (05:58)
[2020-09-29 06:44] LABS: HEMATOCRIT 38.9 % (37.9-51.0); HEMOGLOBIN 12.9 g/dL (13.5-17.0); MEAN CORPUSCULAR HEMOGLOBIN 31.2 pg (27.0-33.4); MEAN CORPUSCULAR HGB CONC 33.1 g/dL (32.0-36.0); MEAN CORPUSCULAR VOLUME 94 fl (80-97); PLATELET COUNT 268 10^3/uL (150-450); RED BLOOD COUNT 4.13 10^6/uL (4.35-5.55); RED CELL DISTRIBUTION WIDTH 13.1 % (11.5-14.0); WHITE BLOOD COUNT 9.2 10^3/uL (4.0-10.5)
[2020-09-29] MEDS: IPRATROPIUM BROMIDE 0.02% NEB 0.5 MG/2.5 ML AMPUL NEB SCH (08:26)
[2020-09-29 09:38] LABS: ANION GAP 7 (5-19); BLOOD UREA NITROGEN 15 mg/dL (7-20); CALCIUM 9.2 mg/dL (8.4-10.2); CARBON DIOXIDE 34 mmol/L (22-30); CHLORIDE 94 mmol/L (98-107); GLUCOSE 155 mg/dL (75-110); POTASSIUM 4.8 mmol/L (3.6-5.0)
[2020-09-29] MEDS: GUAIFENESIN 600 MG TABLET.SA PO SCH (10:00)
[2020-09-29] MEDS: CETIRIZINE 10 MG TABLET PO SCH (10:00)
[2020-09-29] MEDS: PROPRANOLOL HCL 20 MG TABLET PO SCH (10:00)
[2020-09-29] MEDS: LISINOPRIL 10 MG TABLET PO SCH (10:01)
[2020-09-29] MEDS: MAGNESIUM OXIDE 400 MG TABLET PO SCH ×2 (10:01→12:11)
[2020-09-29] MEDS: ENOXAPARIN SODIUM INJ 40 MG/0.4 ML DISP.SYRIN SUBCUT SCH (10:01)
[2020-09-29] MEDS: FLUTICASONE NASAL SPRAY 50 MCG/SPRY 120 SPRAY/16 GM NASL SCH (10:01)
[2020-09-29] MEDS: DOXYCYCLINE HYCLATE 100 MG TABLET PO SCH (10:02)
[2020-09-29] MEDS: METHIMAZOLE 5 MG TABLET PO SCH (10:02)
[2020-09-29] MEDS: SUCRALFATE 1 GM TABLET PO SCH ×3 (10:02→16:22)
[2020-09-29] MEDS: FLUTICASONE/UMECLIDIN/VILANTER 100-62.5-25 MCG/DOSE IH SCH (10:06)
[2020-09-29 18:09] VITALS: BP 107/66
--- NOTE | 2020-09-29 19:12 | PDOC DISCHARGE SUMMARY ---
Impression - Admit/DC Date/PCP Admission Date/Primary Care Provider: 09/25/20 07:29 VIPIN DOLL PA-C Discharge Date: 09/29/20 - Discharge Diagnosis (1) COPD exacerbation Is this a current diagnosis for this admission?: Yes (2) COPD with acute bronchitis Is this a current diagnosis for this admission?: Yes (3) Acute on chronic respiratory failure with hypoxia and hypercapnia Is this a current diagnosis for this admission?: Yes (4) Gastritis Is this a current diagnosis for this admission?: Yes (5) Gastroesophageal reflux Is this a current diagnosis for this admission?: Yes (6) Hyperthyroidism Is this a current diagnosis for this admission?: Yes (7) Tachycardia Is this a current diagnosis for this admission?: Yes (8) Anxiety Is this a current diagnosis for this admission?: Yes (9) Hypertension Is this a current diagnosis for this admission?: Yes (10) Hyperglycemia Is this a current diagnosis for this admission?: Yes (11) Hyperkalemia Is this a current diagnosis for this admission?: Yes (12) Leukocytosis Is this a current diagnosis for this admission?: Yes (13) Hyponatremia Is this a current diagnosis for this admission?: Yes - Additional Information Resuscitation Status: Full Code Discharge Diet: Cardiac Discharge Activity: Activity As Tolerated, Balance Activity w/Rest, Supervised Activity Referrals: VIPIN DOLL PA-C [Primary Care Provider] - 10/06/20 10:15 am (Follow up within 1 week.) Prescriptions: Sucralfate [Carafate 1 gm Tablet] 1 gm PO ACHS #120 tablet Prednisone [Deltasone 20 mg Tablet] 60 mg PO DAILY #12 tablet Fluticasone Propionate [Flonase Nasal [place] 50 Mcg/[place] 16 gm] 1 spray NASL Q12 #1 spray.pump Propranolol HCl [Inderal 20 mg Tablet] 20 mg PO Q8 #90 tablet Magnesium Oxide [Mag-Ox 400 mg Tablet] 400 mg PO MEALS #90 tablet Pantoprazole Sodium [Protonix [address] Tablet] 40 mg PO DAILY #30 tablet.dr Montelukast Sodium [Singulair 10 mg Tablet] 10 mg PO QHS #30 tablet Methimazole [Tapazole 5 mg Tablet] 2.5 mg PO DAILY #30 tablet Fluticasone/Umeclidin/Vilanter [Trelegy 100-62.5-25 Mcg Ellipta 14 Dose/Dpi] 1 inh IH DAILY #1 inhaler Doxycycline Hyclate [Vibramycin 100 mg Tablet] 100 mg PO Q12 #14 tablet Home Medications: Albuterol Sulfate [Albuterol Sulfate Hfa] 2 puff IH Q4HP PRN 09/25/20 Cetirizine HCl [Zyrtec] 10 mg PO DAILY 09/25/20 Fluticasone Propionate [Flonase Nasal [place] 50 Mcg/[place] 16 gm] 1 spray NASL DAILY 09/25/20 Hydroxyzine HCl [Atarax 10 mg Tablet] 10 mg PO Q6HP PRN 09/25/20 Lisinopril [Zestril] 10 mg PO DAILY 09/25/20 Acetaminophen [Tylenol 325 mg Tablet] 650 mg PO Q4HP PRN tablet 09/29/20 Doxycycline Hyclate [Vibramycin 100 mg Tablet] 100 mg PO Q12 #14 tablet 09/29/20 Fluticasone Propionate [Flonase Nasal [place] 50 Mcg/[place] 16 gm] 1 spray NASL Q12 #1 spray.pump 09/29/20 Fluticasone/Umeclidin/Vilanter [Trelegy 100-62.5-25 Mcg Ellipta 14 Dose/Dpi] 1 inh IH DAILY #1 inhaler 09/29/20 Magnesium Oxide [Mag-Ox 400 mg Tablet] 400 mg PO MEALS #90 tablet 09/29/20 Methimazole [Tapazole 5 mg Tablet] 2.5 mg PO DAILY #30 tablet 09/29/20 Montelukast Sodium [Singulair 10 mg Tablet] 10 mg PO QHS #30 tablet 09/29/20 Pantoprazole Sodium [Protonix [address] Tablet] 40 mg PO DAILY #30 tablet.dr 09/29/20 Prednisone [Deltasone 20 mg Tablet] 60 mg PO DAILY #12 tablet 09/29/20 Propranolol HCl [Inderal 20 mg Tablet] 20 mg PO Q8 #90 tablet 09/29/20 Sucralfate [Carafate 1 gm Tablet] 1 gm PO ACHS #120 tablet 09/29/20 History of Present Illiness History of Present Illness: Per H&P by Dr. Ashley: LALA DE LA TORRE is a 49 year old male with a history significant for tobacco and marijuana use as well as occupational exposure to dust and particulate matter. He was recently diagnosed with COPD at 49 years old. He also has a history of hypertension and anxiety. He sees Vipin Doll for primary care and Dr. Jackson for pulmonology. He has been on Trelegy inhaler but feels it is only marginally helping. He has been treated outpatient with antibiotics and prednisone. Over the last 3 days he has been getting progressively more short of breath. He has been using his albuterol inhaler multiple times a day. He in fact will get short of breath just eating. On presentation to the hospital his chest x-ray and CT scan reveal flattened diaphragms with hyperinflated lungs. No focal infiltrate to suggest pneumonia. Respiratory PCR panel was negative and this includes Covid testing. On evaluation it was also noted that he was in sinus tachycardia with minimally elevated blood pressure. He did require oxygen therapy and exhibited increased work of breathing. His white blood cell count was elevated to 20,000. Blood work also revealed hyperglycemia, mild hyperkalemia and mild hyponatremia. ABG did reveal normal pH with an elevated PCO2 at 48 and a decreased PO2 of 58. The patient will be admitted to the hospitalist service. We will start nebulizer treatments as well as antibiotics. I will give a single dose of methylprednisolone and utilize budesonide every 8 hours by nebulizer. He will have lev albuterol and ipratropium every 8 hours as well. Levalbuterol will be available every 4 hours if needed. We will provide oxygen supplementation to keep his saturation between 88 to 92%. We will monitor his heart rate on telemetry. I will continue his lisinopril depending on his blood pressures. He was recently started on a new medication for anxiety and I will call [facility] to get the medication and dose. I will also add Singulair and Flonase. I will recommend back to his [facility] for outpatient treatment. Hospital Course Hospital Course: (1) COPD exacerbation Resolved. Now maintaining oxygen saturations on room air while at rest; does require supplemental O2 when ambulating. Patient was admitted to the medical floor. He was provided supplemental oxygen and BiPAP as needed to maintain saturations greater than 89% and supported with scheduled and as needed nebulizer treatments. He was provided IV Solu-medrol and transitioned to oral prednisone prior to discharge. He was started on Singulair nightly. Resume Trelegy at discharge. Pulmonary toilet is encouraged with incentive spirometer, flutter valve, and ambulation. Outpatient follow up with established check totaler, Dr. Jackson. (2) COPD with acute bronchitis Transition to oral doxycycline. Remaining management as above. (3) Acute on chronic respiratory failure with hypoxia and hypercapnia Secondary to #1 and 2. Management as above. (4) Gastritis Improved; patient denies pain. Tolerating regular diet. Protonix twice daily. Carafate AC at bedtime. (5) Gastroesophageal reflux Improved; patient denies pain. Tolerating regular diet. H. pylori pending. Protonix twice daily. Carafate AC at bedtime. (6) Hyperthyroidism Thyroid ultrasound benign. Continue low-dose methimazole. Continue propanolol. (7) Tachycardia Secondary to hyperthyroidism. Improved with the addition of methimazole and propanolol. Outpatient PCP follow up and dose adjustments. (8) Anxiety Atarax was provided as needed. Management of hyperthyroidism as above. Outpatient PCP follow up. (9) Hypertension Continue Lisinopril and Propranolol. (10) Hyperglycemia Resolved. Secondary to steroid therapy. (11) Hyperkalemia Resolved. (12) Leukocytosis Resolved. (13) Hyponatremia Not clinically significant. Physical Exam Vital Signs: Temp Pulse Resp BP Pulse Ox 98.1 F 100 18 98/74 L 94 09/29/20 16:43 09/29/20 16:43 09/29/20 16:43 09/29/20 16:43 09/29/20 16:43 Intake & Output 09/28/20 09/29/20 09/30/20 06:59 06:59 06:59 Intake Total 2030 1335 827 Output Total 300 Balance 1730 1335 827 Weight 57.2 kg 58.9 kg 57.8 kg General appearance: PRESENT: no acute distress, cooperative, well-developed, well-nourished Head exam: PRESENT: atraumatic, normocephalic Eye exam: PRESENT: conjunctiva pink, EOMI, PERRLA. ABSENT: scleral icterus Mouth exam: PRESENT: moist, tongue midline Respiratory exam: PRESENT: clear to auscultation abdifatah, symmetrical, unlabored, other - Room air at rest; require supplemental oxygen with activity. ABSENT: rales, rhonchi, wheezes Cardiovascular exam: PRESENT: RRR, +S1, +S2. ABSENT: diastolic murmur, rubs, systolic murmur Vascular exam: PRESENT: normal capillary refill Extremities exam: PRESENT: full ROM. ABSENT: calf tenderness, clubbing, pedal edema Musculoskeletal exam: PRESENT: ambulatory Neurological exam: PRESENT: alert, awake, oriented to person, oriented to place, oriented to time, oriented to situation, CN II-XII grossly intact. ABSENT: motor sensory deficit Psychiatric exam: PRESENT: appropriate affect, normal mood. ABSENT: homicidal ideation, suicidal ideation Skin exam: PRESENT: dry, intact, warm. ABSENT: cyanosis, rash Results Laboratory Results: WBC 9.2 10^3/uL (4.0-10.5) 09/29/20 05:46 RBC 4.13 10^6/uL (4.35-5.55) L 09/29/20 05:46 Hgb 12.9 g/dL (13.5-17.0) L 09/29/20 05:46 Hct 38.9 % (37.9-51.0) 09/29/20 05:46 MCV 94 fl (80-97) 09/29/20 05:46 MCH 31.2 pg (27.0-33.4) 09/29/20 05:46 MCHC 33.1 g/dL (32.0-36.0) 09/29/20 05:46 RDW 13.1 % (11.5-14.0) 09/29/20 05:46 Plt Count 268 10^3/uL (150-450) 09/29/20 05:46 Lymph % (Auto) 15.7 % (13-45) 09/26/20 04:38 [place] % (Auto) 10.2 % (3-13) 09/26/20 04:38 Eos % (Auto) 0.2 % (0-6) 09/26/20 04:38 Baso % (Auto) 0.9 % (0-2) 09/26/20 04:38 Absolute Neuts (auto) 13.1 10^3/uL (1.7-8.2) H 09/26/20 04:38 Absolute Lymphs (auto) 2.8 10^3/uL (0.5-4.7) 09/26/20 04:38 Absolute Monos (auto) 1.8 10^3/uL (0.1-1.4) H 09/26/20 04:38 Absolute Eos (auto) 0.0 10^3/uL (0.0-0.6) 09/26/20 04:38 Absolute Basos (auto) 0.2 10^3/uL (0.0-0.2) 09/26/20 04:38 Total Counted 100 09/24/20 22:25 Seg Neutrophils % 73.0 % (42-78) 09/26/20 04:38 Seg Neuts % (Manual) 68 % (42-78) 09/24/20 22:25 Lymphocytes % (Manual) 16 % (13-45) 09/24/20 22:25 Atypical Lymphs % 7 % (0) 09/24/20 22:25 Monocytes % (Manual) 8 % (3-13) 09/24/20 22:25 Eosinophils % (Manual) 1 % (0-6) 09/24/20 22:25 Basophils % (Manual) 0 % (0-2) 09/24/20 22:25 Abs Neuts (Manual) 14.0 10^3/uL (1.7-8.2) H 09/24/20 22:25 Abs Lymphs (Manual) 4.7 10^3/uL (0.5-4.7) 09/24/20 22:25 Abs Monocytes (Manual) 1.6 10^3/uL (0.1-1.4) H 09/24/20 22:25 Absolute Eos (Manual) 0.2 10^3/uL (0.0-0.6) 09/24/20 22:25 Abs Basophils (Manual) 0.0 10^3/uL (0.0-0.2) 09/24/20 22:25 Platelet Comment ADEQUATE 09/24/20 22:25 Poikilocytosis SLIGHT 09/24/20 22:25 Ovalocytes SLIGHT 09/24/20 22:25 Carbonic Acid 0.98 mmol/L (1.05-1.35) L 09/28/20 06:10 HCO3/H2CO3 Ratio 20:1 09/28/20 06:10 ABG pH 7.41 (7.35-7.45) 09/28/20 06:10 ABG pCO2 32.5 mmHg (35-45) L 09/28/20 06:10 ABG pO2 62.0 mmHg (80-100) L 09/28/20 06:10 ABG HCO3 20.2 mmol/L (20-24) 09/28/20 06:10 ABG Total CO2 21.2 mmol/L (23-27) L 09/28/20 06:10 ABG O2 Saturation 92.3 % (94-98) L 09/28/20 06:10 ABG Base Excess -3.4 mmol/L 09/28/20 06:10 VBG pH 7.26 (7.30-7.42) L 09/24/20 23:05 VBG pCO2 75.2 mmHg (35-63) H* 09/24/20 23:05 VBG HCO3 32.8 mmol/L (20-32) H 09/24/20 23:05 VBG Base Excess 3.1 mmol/L 09/24/20 23:05 FiO2 21% 09/28/20 06:10 Sodium 135.3 mmol/L (137-145) L 09/29/20 08:41 Potassium 4.8 mmol/L (3.6-5.0) 09/29/20 08:41 Chloride 94 mmol/L (98-107) L 09/29/20 08:41 Carbon Dioxide 34 mmol/L (22-30) H 09/29/20 08:41 Anion Gap 7 (5-19) 09/29/20 08:41 BUN 15 mg/dL (7-20) 09/29/20 08:41 Creatinine 0.73 mg/dL (0.52-1.25) 09/29/20 08:41 Est GFR ( Amer) > 60 (>60) 09/29/20 08:41 Est GFR (Non-Af Amer) Cancelled 09/29/20 05:46 Est GFR (MDRD) Non-Af > 60 (>60) 09/29/20 08:41 Glucose 155 mg/dL (75-110) H 09/29/20 08:41 POC Glucose 96 mg/dL (70-110) 09/27/20 11:26 Calcium 9.2 mg/dL (8.4-10.2) 09/29/20 08:41 Magnesium 1.5 mg/dL (1.6-2.3) L 09/27/20 05:17 Total Bilirubin 0.4 mg/dL (0.2-1.3) 09/24/20 22:25 Direct Bilirubin 0.3 mg/dL (0.0-0.4) 09/24/20 22:25 Neonat Total Bilirubin Not Reportable 09/24/20 22:25 Neonat Direct Bilirubin Not Reportable 09/24/20 22:25 Neonat Indirect Bili Not Reportable 09/24/20 22:25 AST 32 U/L (17-59) 09/24/20 22:25 ALT 22 U/L (<50) 09/24/20 22:25 Alkaline Phosphatase 57 U/L (38-126) 09/24/20 22:25 Total Protein 7.2 g/dL (6.3-8.2) 09/24/20 22:25 Albumin 4.1 g/dL (3.5-5.0) 09/24/20 22:25 EGFR Cancelled 09/29/20 05:46 TSH 0.15 uIU/mL (0.47-4.68) L 09/26/20 04:38 Free T4 1.48 ng/dL (0.78-2.19) 09/26/20 04:38 Free T3 pg/mL 4.71 pg/mL (2.77-5.27) 09/27/20 06:15 Urine Color YELLOW 09/25/20 02:13 Urine Appearance CLEAR 09/25/20 02:13 Urine pH 5.0 (5.0-9.0) 09/25/20 02:13 Ur Specific [place] 1.025 09/25/20 02:13 Urine Protein 30 mg/dL (NEGATIVE) H 09/25/20 02:13 Urine Glucose (UA) NEGATIVE mg/dL (NEGATIVE) 09/25/20 02:13 Urine Ketones TRACE mg/dL (NEGATIVE) H 09/25/20 02:13 Urine Blood NEGATIVE (NEGATIVE) 09/25/20 02:13 Urine Nitrite NEGATIVE (NEGATIVE) 09/25/20 02:13 Urine Bilirubin NEGATIVE (NEGATIVE) 09/25/20 02:13 Urine Urobilinogen NEGATIVE mg/dL (<2.0) 09/25/20 02:13 Ur Leukocyte Esterase NEGATIVE (NEGATIVE) 09/25/20 02:13 Urine WBC (Auto) 1 /HPF 09/25/20 02:13 U Hyaline Cast (Auto) 15 /LPF 09/25/20 02:13 Urine Mucus (Auto) RARE /LPF 09/25/20 02:13 Urine Ascorbic Acid 40 (NEGATIVE) H 09/25/20 02:13 [place] Human Metapneumo PCR NOT DETECTED (NOT DETECT) 09/24/20 23:05 Adenovirus (PCR) NOT DETECTED (NOT DETECT) 09/24/20 23:05 B. pertussis DNA (PCR) NOT DETECTED (NOT DETECT) 09/24/20 23:05 B.parapertussis DNA PCR NOT DETECTED (NOT DETECT) 09/24/20 23:05 C. pneumoniae DNA (PCR) NOT DETECTED (NOT DETECT) 09/24/20 23:05 Coronavirus OC43 (PCR) NOT DETECTED (NOT DETECT) 09/24/20 23:05 Coronavirus HKU1 (PCR) NOT DETECTED (NOT DETECT) 09/24/20 23:05 Coronavirus 229E (PCR) NOT DETECTED (NOT DETECT) 09/24/20 23:05 Coronavirus NL63 (PCR) NOT DETECTED (NOT DETECT) 09/24/20 23:05 Influenza A (H1) PCR NOT DETECTED (NOT DETECT) 09/24/20 23:05 Influ A (H1N1/09) PCR NOT DETECTED (NOT DETECT) 09/24/20 23:05 Influenza A (H3) PCR NOT DETECTED (NOT DETECT) 09/24/20 23:05 Influenza Type A (PCR) NOT DETECTED (NOT DETECT) 09/24/20 23:05 Influenza Type B (PCR) NOT DETECTED (NOT DETECT) 09/24/20 23:05 M. pneumoniae (PCR) NOT DETECTED (NOT DETECT) 09/24/20 23:05 Parainfluenza 1 (PCR) NOT DETECTED (NOT DETECT) 09/24/20 23:05 Parainfluenza 2 (PCR) NOT DETECTED (NOT DETECT) 09/24/20 23:05 Parainfluenza 3 (PCR) NOT DETECTED (NOT DETECT) 09/24/20 23:05 Parainfluenza 4 (PCR) NOT DETECTED (NOT DETECT) 09/24/20 23:05 RSV (PCR) NOT DETECTED (NOT DETECT) 09/24/20 23:05 Entero/Rhino (PCR) NOT DETECTED (NOT DETECT) 09/24/20 23:05 SARS-CoV-2 (PCR) NOT DETECTED (NOT DETECT) 09/24/20 23:05 Impressions: Chest X-Ray 09/24/20 00:00 IMPRESSION: COPD. Lungs are clear copyright 2011 [employer]- All Rights Reserved Chest X-Ray 09/27/20 00:00 IMPRESSION: Blunting of the costophrenic sulci - this could indicate small bilateral pleural effusions or chronic pleural thickening. There is no acute consolidation. Thyroid Ultrasound 09/28/20 08:00 IMPRESSION: NORMAL THYROID ULTRASOUND. Plan Plan of Treatment: Patient is discharged home, in stable condition, with home oxygen therapy. He is advised follow-up with his primary care provider within 1 week. Follow-up with Dr. Jackson within 2 to 4 weeks; sooner as needed. Take medications as prescribed. Avoid known respiratory triggers. Return to the emergency department, as needed, for concerning symptoms. Time Spent: Greater than 30 Minutes Stroke Is this a Stroke Patient?: No Acute Heart Failure Is this a Heart Failure Patient?: No
[2020-09-29] MEDS ORDERED: PREDNISONE 20 MG TABLET PO SCH (22:00)
[2020-09-30 07:09] LABS: HELICOBACTER PYLORI IGA AB <9.0 units (0.0-8.9); HELICOBACTER PYLORI IGG AB 1.74 (0.00-0.79)
== END 2020-09-29 18:00 | disposition home or self-care (01) | DRG 190 ==
LOC: ER 22:17 → EH 09-25 07:29 → 4N 09-25 10:43
PROVIDERS: ADMIT Hospitalist; ATTEND Registered Nurse
PROC: 5A09457 Assistance with Respiratory Ventilation, 24-96 Consecutive Hours, Continuous Positive Airway Pressure (ICD-10-PCS; principal; 2020-09-24)
DX: J44.1 Chronic obstructive pulmonary disease with (acute) exacerbation (principal); J96.21 Acute and chronic respiratory failure with hypoxia; J96.22 Acute and chronic respiratory failure with hypercapnia; E87.1 Hypo-osmolality and hyponatremia; I10 Essential (primary) hypertension; F41.9 Anxiety disorder, unspecified; J20.9 Acute bronchitis, unspecified; J44.0 Chronic obstructive pulmonary disease with (acute) lower respiratory infection; K29.50 Unspecified chronic gastritis without bleeding; K21.9 Gastro-esophageal reflux disease without esophagitis; E05.90 Thyrotoxicosis, unspecified without thyrotoxic crisis or storm; R73.9 Hyperglycemia, unspecified; E87.5 Hyperkalemia; D72.828 Other elevated white blood cell count; F10.20 Alcohol dependence, uncomplicated; Z79.899 Other long term (current) drug therapy; Z79.52 Long term (current) use of systemic steroids; Z87.891 Personal history of nicotine dependence
CPT/HCPCS: 0202U; 36415; 36600; 71045; 71046; 76536; 80048; 80053; 81001; 82803; 82962; 83735; 84439; 84443; 84481; 85025; 85027; 86677; 93005; 93010; 94660; 96360; 96361; 99285; J1650; J2930; J3490; J7060; J7120; J7512; J7614; J7644

== ENCOUNTER 2020-10-05 04:05 | Inpatient (IN) | payer OTHER ==
[2020-10-05] MEDS: ALBUTEROL SULFATE 0.083% NEB 2.5 MG/3 ML AMPUL NEB SCH ×3 (04:39→04:59)
[2020-10-05 04:40] LABS: HEMATOCRIT 40.4 % (37.9-51.0); HEMOGLOBIN 13.3 g/dL (13.5-17.0); MEAN CORPUSCULAR HEMOGLOBIN 31.7 pg (27.0-33.4); MEAN CORPUSCULAR VOLUME 96 fl (80-97); RED CELL DISTRIBUTION WIDTH 13.4 % (11.5-14.0); WHITE BLOOD COUNT 20.3 10^3/uL (4.0-10.5)
--- NOTE | 2020-10-05 04:49 | ER Document Report ---
ED General - General Chief Complaint: Respiratory Distress Stated Complaint: RESPIRATORY DISTRESS Time Seen by Provider: 10/05/20 04:07 Notes: 49-year-old male history of asthma and COPD on home oxygen with prior BiPAP use never intubated currently on prednisone for recent asthma exacerbation presents with sudden onset worse shortness of breath when he woke up this morning approximately 1 hour prior to ED arrival to use the bathroom. Patient had been improving prior to going to sleep. Patient says he has previously had sudden worsening symptoms with his asthma exacerbations. Patient denies any chest pain, fever, cough, lower extremity edema, cardiac history, cardiac risk factors. History limited by acute respiratory distress. Patient given 125 Solu-Medrol and 2 g of mag by EMS and repeat and had a twelve-lead EKG without any signs of acute ischemia that I reviewed. - Related Data Allergies/Adverse Reactions: No Known Allergies Allergy (Verified 09/25/20 13:29) Past Medical History - General Information source: Patient, Emergency Med Personnel, [facility] Records - Social History Smoking Status: Smoker,Current Status Unk Chew tobacco use (# tins/day): No Frequency of alcohol use: Occasional Drug Abuse: None, Marijuana Family History: Reviewed & Not Pertinent Patient has homicidal ideation: No - Past Medical History Cardiac Medical History: Reports: Hx Hypertension Denies: Hx Hypercholesterolemia Pulmonary Medical History: Reports: Hx Bronchitis, Hx COPD Neurological Medical History: Reports: Hx Migraine GI Medical History: Reports: Hx Gastroesophageal Reflux Disease Psychiatric Medical History: Reports: Hx Depression Review of Systems - Review of Systems -: Yes ROS unobtainable due to patient's medical condition - Patient acuity Physical Exam - Vital signs Vitals: Pulse Ox 97 10/05/20 04:07 - Notes Notes: PHYSICAL EXAMINATION: GENERAL: Patient brought in by EMS on CPAP in severe respiratory distress HEAD: Atraumatic, normocephalic. EYES: Pupils equal round and appropriate constriction, sclera anicteric, conjunctiva are normal. ENT: nares patent, moist mucous membranes. NECK: Normal range of motion, supple without lymphadenopathy LUNGS: CPAP in place, very poor air movement bilaterally, very faint expiratory wheezing, accessory muscle use, speaking in 1-2 word sentences, tripoding HEART: Tachycardic with regular rhythm, no murmurs ABDOMEN: Soft, nontender, no guarding, no masses, no CVAT EXTREMITIES: Normal range of motion, no pitting or edema. No cyanosis. NEUROLOGICAL: Awake, alert, moves all extremities spontaneously. PSYCH: Normal mood, normal affect. SKIN: Warm, Dry, normal turgor, no rashes or lesions noted. Course - Re-evaluation Re-evalutation: 10/05/20 04:48 Patient feeling significantly improved on BiPAP, air movement has increased, will continue to monitor 10/05/20 05:59 Patient arrived in severe respiratory distress on CPAP by EMS. EMS says that sats were in 30s when they arrived on scene. Patient improved on CPAP and then further improved when transferred to BiPAP in ED. Patient's air movement severely limited on arrival but has now improved. Patient's CBC shows marked leukocytosis which is consistent with patient's severe initial respiratory distress and the presence of acute space reactants. Patient's initial VBG shows severe respiratory acidosis, drawn before patient placed on BiPAP, repeat pending. Will wait for repeat to confirm that patient's clinical improvement is reflected in pH and CO2 before deciding patient's disposition. Will continue to monitor closely. Given patient's respiratory exam and history no signs of bacterial infection, cardiac etiology or PE at this time, but will defer reevaluation of these diagnoses to inpatient team if patient's clinical picture should change. 10/05/20 06:30 Patient's repeat VBG shows improved pH and improved CO2 retention, some component of chronic retention given pH of 7.2 and CO2 greater than 80. Patient continuing to feel improved. Discussed patient with Dr. Sainz who is currently evaluating patient. Will put pt in for IMCU bed and sign him out to Dr. Parker. - Vital Signs Vital signs: Temp Pulse Resp BP Pulse Ox 97.6 F 77 19 127/91 H 93 10/08/20 03:17 10/08/20 03:17 10/08/20 03:17 10/08/20 03:17 10/08/20 03:17 - Laboratory Results Result Diagrams: 10/06/20 04:53 10/06/20 04:53 Laboratory Results Interpreted: 10/05/20 10/05/20 10/05/20 04:14 04:14 04:14 WBC 20.3 H RBC 4.20 L Hgb 13.3 L Abs Neuts (Manual) 11.8 H Abs Lymphs (Manual) 7.1 H VBG pH 7.08 L* VBG pCO2 98.2 H* Chloride 97 L Carbon Dioxide 36 H Glucose 138 H AST 82 H ALT 66 H Urine Ascorbic Acid 10/05/20 10/05/20 05:24 06:34 WBC RBC Hgb Abs Neuts (Manual) Abs Lymphs (Manual) VBG pH 7.20 L VBG pCO2 81.2 H* Chloride Carbon Dioxide Glucose AST ALT Urine Ascorbic Acid 20 H Critical Laboratory Results Reviewed: Yes Attending or Supervising Physician who Reviewed Labs: AGUSTIN HERNANDEZ - Radiology Results Critical Radiology Results Reviewed: No Critical Results - EKG Interpretation by Me Additional EKG results interpreted by me: 10/07/20 08:17 Sinus tachycardia, no significant ST elevations or depressions, no significant T wave abnormalities Critical Care Note - Critical Care Note Total time excluding time spent on procedures (mins): 35 - Spent time repeatedly reassessing critical patient with respiratory failure Discharge - Discharge Clinical Impression: COPD exacerbation Acute and chronic respiratory failure Qualifiers: Respiratory failure complication: hypoxia and hypercapnia Qualified Code(s): J96.21 - Acute and chronic respiratory failure with hypoxia Condition: Critical Disposition: ADMITTED INPATIENT Admitting Provider: [facility] Admitted: [facility]
[2020-10-05] MEDS ORDERED: ACETAMINOPHEN 325 MG TABLET PO ONE (04:54)
[2020-10-05 04:59] LABS: ABSOLUTE LYMPHOCYTES# (MANUAL) 7.1 10^3/uL (0.5-4.7); ABSOLUTE MONOCYTES # (MANUAL) 1.4 10^3/uL (0.1-1.4); BASOPHILS % (MANUAL) 0 % (0-2); EOSINOPHILS % (MANUAL) 0 % (0-6); LYMPHOCYTES % (MANUAL) 35 % (13-45); MONOCYTES % (MANUAL) 7 % (3-13); SEGMENTED NEUTROPHILS % (MAN) 58 % (42-78); TOTAL CELLS COUNTED 100; VENOUS BLOOD BASE EXCESS -4.9 mmol/L; VENOUS BLOOD HCO3 28.3 mmol/L (20-32)
[2020-10-05 05:01] LABS: ALKALINE PHOSPHATASE 59 U/L (38-126); ASPARTATE AMINO TRANSFERASE 82 U/L (17-59); BILIRUBIN,DIRECT 0.3 mg/dL (0.0-0.4); BILIRUBIN,TOTAL 0.3 mg/dL (0.2-1.3); BLOOD UREA NITROGEN 20 mg/dL (7-20); CALCIUM 8.9 mg/dL (8.4-10.2); CHLORIDE 97 mmol/L (98-107); GLUCOSE 138 mg/dL (75-110); PLATELET CLUMPS PRESENT; PLATELET COMMENT ADEQUATE; PLATELET COUNT 393 10^3/uL (150-450); POTASSIUM 4.8 mmol/L (3.6-5.0); TOTAL PROTEIN 6.9 g/dL (6.3-8.2)
[2020-10-05 05:07] LABS: ANION GAP 5 (5-19)
[2020-10-05 05:11] LABS: CARBON DIOXIDE 36 mmol/L (22-30)
[2020-10-05 05:12] LABS: VENOUS BLOOD PH 7.08 (7.30-7.42)
[2020-10-05 05:13] LABS: VENOUS BLOOD PCO2 98.2 mmHg (35-63)
--- NOTE | 2020-10-05 05:13 | RADIOLOGY REPORT (SQ) ---
EXAM DESCRIPTION: XR CHEST 1 VIEW COMPLETED DATE/TME: 10/05/2020 04:31 CLINICAL HISTORY: 49 years, Male, SOB COMPARISON: 09/24/2020 chest NUMBER OF VIEWS: 1 TECHNIQUE: Portable chest LIMITATIONS: None. FINDINGS: The heart size is normal. Underlying hyperinflation. Lungs clear. No pneumothorax IMPRESSION: Underlying hyperinflation. Lungs are clear copyright 2011 [employer]- All Rights Reserved
[2020-10-05] MEDS ORDERED: IPRATROPIUM/ALBUTEROL 0.5-2.5 MG/3 ML AMPUL NEB ONE (06:04)
[2020-10-05 06:09] LABS: VENOUS BLOOD BASE EXCESS 0.7 mmol/L; VENOUS BLOOD HCO3 31.2 mmol/L (20-32); VENOUS BLOOD PH 7.2 (7.30-7.42)
[2020-10-05 06:20] LABS: VENOUS BLOOD PCO2 81.2 mmHg (35-63)
[2020-10-05] MEDS ORDERED: NORMAL SALINE 1000 ML 1,000 ML IV ONE (06:36)
[2020-10-05] MEDS ORDERED: ACETAMINOPHEN 325 MG TABLET PO PRN (06:43)
[2020-10-05] MEDS ORDERED: ONDANSETRON HCL INJ/PF 4 MG/2 ML SDV IV PRN (06:43)
--- NOTE | 2020-10-05 06:52 | PDOC H&P ---
History of Present Illness Admission Date/PCP: 10/05/20 06:43 VIPIN DOLL PA-C Patient complains of: Shortness of breath History of Present Illness: LALA DE LA TORRE is a 49 year old male with a history of COPD on 2 L intranasal at home oxygen, hypertension and hyperthyroidism who presents with acute worsening of shortness of breath of 1 day duration. Patient was admitted for similar symptoms twice in the past 1 month. This episode started suddenly pain he wake up to go to the [facility] [place] last night. Despite using albuterol inhaler multiple times he is shortness of breath did not improve and decided to come to the ED for further evaluation. Patient denies any fever, chills, cough, chest pain, palpitation, dizziness, nausea, vomiting or any change in his bowel or urinary habit. He states that he took his last dose of prednisone which was ordered during his last hospital discharge about a week ago yesterday. Patient currently follows up with pulmonary as an outpatient and according to him, he is a scheduled to be seen at [place] for further evaluation of his COPD. Past Medical History Cardiac Medical History: Reports: Hypertension Denies: Hyperlipidema Pulmonary Medical History: Reports: Bronchitis, Chronic Obstructive Pulmonary Disease (COPD) Neurological Medical History: Reports: Migraine GI Medical History: Reports: Gastroesophageal Reflux Disease Psychiatric Medical History: Reports: Depression Social History Information Source: Patient Lives with: Family Smoking Status: Smoker,Current Status Unk Electronic Cigarette use?: No Frequency of Alcohol Use: None - History of heavy alcohol use until 2 years ago Hx Recreational Drug Use: Yes Drugs: Marijuana - Up until 2 years ago Hx Prescription Drug Abuse: No - Advance Directive Resuscitation Status: Full Code Family History Family History: Reviewed & Not Pertinent Parental Family History Reviewed: Yes Children Family History Reviewed: Yes Sibling(s) Family History Reviewed.: Yes Medication/Allergy Home Medications: Albuterol Sulfate [Albuterol Sulfate Hfa] 2 puff IH Q4HP PRN 09/25/20 Cetirizine HCl [Zyrtec] 10 mg PO DAILY 09/25/20 Fluticasone Propionate [Flonase Nasal [place] 50 Mcg/Persia 16 gm] 1 spray NASL DAILY 09/25/20 Hydroxyzine HCl [Atarax 10 mg Tablet] 10 mg PO Q6HP PRN 09/25/20 Lisinopril [Zestril] 10 mg PO DAILY 09/25/20 Acetaminophen [Tylenol 325 mg Tablet] 650 mg PO Q4HP PRN tablet 09/29/20 Doxycycline Hyclate [Vibramycin 100 mg Tablet] 100 mg PO Q12 #14 tablet 09/29/20 Fluticasone Propionate [Flonase Nasal [place] 50 Mcg/[place] 16 gm] 1 spray NASL Q12 #1 spray.pump 09/29/20 Fluticasone/Umeclidin/Vilanter [Trelegy 100-62.5-25 Mcg Ellipta 14 Dose/Dpi] 1 inh IH DAILY #1 inhaler 09/29/20 Magnesium Oxide [Mag-Ox 400 mg Tablet] 400 mg PO MEALS #90 tablet 09/29/20 Methimazole [Tapazole 5 mg Tablet] 2.5 mg PO DAILY #30 tablet 09/29/20 Montelukast Sodium [Singulair 10 mg Tablet] 10 mg PO QHS #30 tablet 09/29/20 Pantoprazole Sodium [Protonix [address] Tablet] 40 mg PO DAILY #30 tablet.dr 09/29/20 Prednisone [Deltasone 20 mg Tablet] 60 mg PO DAILY #12 tablet 09/29/20 Propranolol HCl [Inderal 20 mg Tablet] 20 mg PO Q8 #90 tablet 09/29/20 Sucralfate [Carafate 1 gm Tablet] 1 gm PO ACHS #120 tablet 09/29/20 Allergies/Adverse Reactions: No Known Allergies Allergy (Verified 09/25/20 13:29) Review of Systems Constitutional: ABSENT: chills, fever(s), headache(s), weight gain, weight loss Eyes: ABSENT: visual disturbances Ears: ABSENT: hearing changes Nose, Mouth, and Throat: ABSENT: headache(s), mouth pain, sore throat Cardiovascular: PRESENT: as per HPI Respiratory: PRESENT: as per HPI Gastrointestinal: ABSENT: abdominal pain, constipation, diarrhea, hematemesis, hematochezia, nausea, vomiting Genitourinary: ABSENT: dysuria, hematuria Musculoskeletal: ABSENT: joint swelling Integumentary: ABSENT: rash, wounds Neurological: ABSENT: abnormal gait, abnormal speech, confusion, dizziness, focal weakness, syncope Psychiatric: ABSENT: anxiety, depression, homidical ideation, suicidal ideation Endocrine: ABSENT: cold intolerance, heat intolerance, polydipsia, polyuria Hematologic/Lymphatic: ABSENT: easy bleeding, easy bruising Physical Exam Vital Signs: Temp Pulse Resp BP Pulse Ox 16 134/98 H 100 10/05/20 06:00 10/05/20 05:30 10/05/20 06:00 Intake & Output 10/03/20 10/04/20 10/05/20 06:59 06:59 06:59 Weight 63.503 kg Additional comments: GENERAL APPEARANCE: Alert and oriented x3, currently on a BiPAP with FiO2 of 30% saturating 100% HEENT: Normocephalic and atraumatic. No scleral icterus. NECK: Supple. No lymphadenopathy or tenderness. No JVD CHEST: Symmetric. Nontender to palpation. LUNGS: Has globally decreased air entry with minimal air movement. No wheezing or crackles cruciated HEART: Regular rate and rhythm with normal S1 and S2. No murmurs, gallops, or rubs. ABDOMEN: Flat, soft, active bowel sounds, no direct or rebound tenderness. No organomegaly detected. EXTREMITIES: No cyanosis, clubbing, or edema. MUSCULOSKELETAL: No deformity, atrophy or swelling noted PSYCHIATRIC: Recent and remote memory is intact. Appropriate mood and affect. SKIN: Warm, dry, and well perfused. No lesions or rashes are noted. NEUROLOGIC: No focal sensory or motor deficits are noted. Results Laboratory Results: 10/05/20 04:14 10/05/20 04:14 10/05/20 10/05/20 10/05/20 04:14 04:14 04:14 WBC 20.3 H RBC 4.20 L Hgb 13.3 L Hct 40.4 MCV 96 MCH 31.7 MCHC 33.0 RDW 13.4 Plt Count 393 Seg Neutrophils % Not Reportable VBG pH 7.08 L* VBG pCO2 98.2 H* VBG HCO3 28.3 VBG Base Excess -4.9 Sodium 138.2 Potassium 4.8 Chloride 97 L Carbon Dioxide 36 H Anion Gap 5 BUN 20 Creatinine 0.91 Est GFR ( Amer) > 60 Glucose 138 H Calcium 8.9 Total Bilirubin 0.3 AST 82 H Alkaline Phosphatase 59 Total Protein 6.9 Albumin 4.0 10/05/20 05:24 WBC RBC Hgb Hct MCV MCH MCHC RDW Plt Count Seg Neutrophils % VBG pH 7.20 L VBG pCO2 81.2 H* VBG HCO3 31.2 VBG Base Excess 0.7 Sodium Potassium Chloride Carbon Dioxide Anion Gap BUN Creatinine Est GFR ( Amer) Glucose Calcium Total Bilirubin AST Alkaline Phosphatase Total Protein Albumin Impressions: Chest X-Ray 10/05/20 04:18 IMPRESSION: Underlying hyperinflation. Lungs are clear copyright 2010 [employer]- All Rights Reserved Assessment and Plan - Diagnosis (1) Acute on chronic respiratory failure with hypoxia and hypercapnia Is this a current diagnosis for this admission?: Yes Plan: Patient with a known history of severe COPD on 2 L home oxygen Presents with acute worsening of shortness of breath On physical examination patient is not in acute distress but has little to none air movement on auscultation Venous blood gas was significant for a pH of 7.08 with a PCO2 of 98 on arrival After being placed on BiPAP for an hour pH improved to 7.20 and PCO2 also dropped to 81 Chest x-ray shows hyperinflated lungs consistent with COPD but no acute findings Currently on a BiPAP with a setting of IPAP/EPAP/FiO2 of [birth year]/1970 percent respectively Placed him on breathing treatment with levalbuterol due to tachycardia Continue Solu-Medrol 40 mg IV twice daily Will obtain venous blood gas to assess for interval improvement of acidosis and hypercapnia Will try to titrate down FiO2 and wean him off BiPAP when he tolerates Closely monitor respiratory parameters for any sign of impending respiratory failure (2) COPD exacerbation Is this a current diagnosis for this admission?: Yes Plan: No admitted with hypercapnic and hypoxic respiratory failure after presenting with shortness of breath Continue breathing treatment with levalbuterol, Solu-Medrol and currently on a BiPAP Patient to continue follow-up with pulmonary at [place] on discharge (3) Tachycardia Is this a current diagnosis for this admission?: Yes Plan: Likely due to hyperthyroidism Is otherwise hemodynamically stable and moist oral mucosa Continue methimazole Held propranolol for now due to severe COPD exacerbation (4) Hyperthyroidism Is this a current diagnosis for this admission?: Yes Plan: Continue methimazole Held propranolol for now due to severe COPD exacerbation TSH level ordered (5) Hypertension Qualifiers: Hypertension type: essential hypertension Qualified Code(s): I10 - Essential (primary) hypertension Is this a current diagnosis for this admission?: Yes Plan: Blood pressure within acceptable range Continue lisinopril 20 mg p.o. daily On low-sodium diet (6) Gastroesophageal reflux Qualifiers: Esophagitis presence: esophagitis presence not specified Qualified Code(s): K21.9 - Gastro-esophageal reflux disease without esophagitis Is this a current diagnosis for this admission?: Yes Plan: Placed him on famotidine 20 mg p.o. twice daily - Time Time Spent with patient: 35 or more minutes Total Critical Time (Minutes): 45 Medications reviewed and adjusted accordingly: Yes Anticipated Discharge Disposition: Home, Self Care Anticipated Discharge Timeframe: within 72 hours - Inpatient Certification Based on my medical assessment, after consideration of the patient's comorbidities, presenting symptoms, or acuity I expect that the services needed warrant INPATIENT care.: Yes I certify that my determination is in accordance with my understanding of Medicare's requirements for reasonable and necessary INPATIENT services [42 CFR 412.3e].: Yes Medical Necessity: Failure to Improve With Outpatient Therapy, Need Close Monitoring Due to Risk of Patient Decompensation, Need for Nebulizer Therapy and Monitoring of Response, Risk of Complication if Not Cared For in Hospital Post Hospital Care: D/C or Transfer Summary
[2020-10-05 07:21] LABS: APPEARANCE,URINE CLEAR; BILIRUBIN,URINE NEGATIVE (NEGATIVE); COLOR,URINE YELLOW; GLUCOSE, URINE NEGATIVE (NEGATIVE); KETONES,URINE NEGATIVE (NEGATIVE); LEUKOCYTE ESTERASE,URINE NEGATIVE (NEGATIVE); NITRITE,URINE NEGATIVE (NEGATIVE); PROTEIN,URINE NEGATIVE (NEGATIVE); URINE SPECIFIC GRAVITY 1.018; UROBILINOGEN,URINE NEGATIVE mg/dL (<2.0)
--- NOTE | 2020-10-05 07:34 | EKG REPORT ---
SEVERITY:- ABNORMAL ECG - SINUS TACHYCARDIA RIGHT AXIS DEVIATION PROBABLE INFERIOR INFARCT, OLD RA ENLARGEMENT : Confirmed by: Kevin Mercado MD 05-Oct-2020 07:33:23
[2020-10-05] MEDS: FAMOTIDINE 20 MG TABLET PO SCH ×2 (11:18→21:11)
[2020-10-05] MEDS: LISINOPRIL 10 MG TABLET PO SCH (11:18)
[2020-10-05] MEDS: METHIMAZOLE 5 MG TABLET PO SCH (11:18)
[2020-10-05] MEDS: METHYLPREDNISOLONE INJ 40 MG/1 ML SDV IV SCH ×2 (11:19→21:11)
[2020-10-05] MEDS: ENOXAPARIN SODIUM INJ 40 MG/0.4 ML DISP.SYRIN SUBCUT SCH (11:19)
[2020-10-05 12:27] LABS: VENOUS BLOOD BASE EXCESS 3.9 mmol/L; VENOUS BLOOD HCO3 32.3 mmol/L (20-32); VENOUS BLOOD PH 7.3 (7.30-7.42)
[2020-10-05 12:29] LABS: VENOUS BLOOD PCO2 67.8 mmHg (35-63)
--- NOTE | 2020-10-05 14:49 | PDOC PROGRESS REPORT ---
Subjective Date:: 10/05/20 Subjective:: Patient was seen and examined at bedside. On 2L NC saturating 100%. Reports daniel thing much improved. I have resumed his home medications including propranolol and methimazole. Currently undergoing treatment for COPD exacerbation however I suspect his SOB is also driven by anxiety from hyperthyroidism. Will reorder Radiouptake iodine uptake scan to work up his hyperthyroidism. Reason For Visit: ACUTE HYPOXIC AND HYPERCAPNIC RESPIRATORY FAILURE Physical Exam Vital Signs: Temp Pulse Resp BP Pulse Ox 97.9 F 105 H 24 H 135/70 H 100 10/05/20 10:29 10/05/20 10:29 10/05/20 10:29 10/05/20 10:29 10/05/20 10:29 Intake & Output 10/04/20 10/05/20 10/06/20 06:59 06:59 06:59 Intake Total 1000 Balance 1000 Weight 63.503 kg General appearance: PRESENT: cooperative, mild distress Head exam: PRESENT: atraumatic, normocephalic Eye exam: PRESENT: EOMI, PERRLA Mouth exam: PRESENT: moist Neck exam: PRESENT: full ROM Respiratory exam: PRESENT: clear to auscultation abdifatah, symmetrical, unlabored Cardiovascular exam: PRESENT: RRR, +S1, +S2 Pulses: PRESENT: +2 pedal pulses bilateral GI/Abdominal exam: PRESENT: normal bowel sounds, soft. ABSENT: rebound, tenderness Extremities exam: PRESENT: full ROM Musculoskeletal exam: PRESENT: full ROM Neurological exam: PRESENT: alert, awake, oriented to person, oriented to place Psychiatric exam: PRESENT: normal mood Skin exam: PRESENT: normal color Results Laboratory Results: 10/05/20 04:14 10/05/20 04:14 10/05/20 10/05/20 10/05/20 04:14 04:14 04:14 WBC 20.3 H RBC 4.20 L Hgb 13.3 L Hct 40.4 MCV 96 MCH 31.7 MCHC 33.0 RDW 13.4 Plt Count 393 Seg Neutrophils % Not Reportable VBG pH 7.08 L* VBG pCO2 98.2 H* VBG HCO3 28.3 VBG Base Excess -4.9 Sodium 138.2 Potassium 4.8 Chloride 97 L Carbon Dioxide 36 H Anion Gap 5 BUN 20 Creatinine 0.91 Est GFR ( Amer) > 60 Glucose 138 H Calcium 8.9 Total Bilirubin 0.3 AST 82 H Alkaline Phosphatase 59 Total Protein 6.9 Albumin 4.0 Urine Color Urine Appearance Urine pH Ur Specific [place] Urine Protein Urine Glucose (UA) Urine Ketones Urine Blood Urine Nitrite Ur Leukocyte Esterase Urine WBC (Auto) Urine RBC (Auto) 10/05/20 10/05/20 10/05/20 05:24 06:34 12:09 WBC RBC Hgb Hct MCV MCH MCHC RDW Plt Count Seg Neutrophils % VBG pH 7.20 L 7.30 VBG pCO2 81.2 H* 67.8 H* VBG HCO3 31.2 32.3 H VBG Base Excess 0.7 3.9 Sodium Potassium Chloride Carbon Dioxide Anion Gap BUN Creatinine Est GFR ( Amer) Glucose Calcium Total Bilirubin AST Alkaline Phosphatase Total Protein Albumin Urine Color YELLOW Urine Appearance CLEAR Urine pH 5.0 Ur Specific [place] 1.018 Urine Protein NEGATIVE Urine Glucose (UA) NEGATIVE Urine Ketones NEGATIVE Urine Blood NEGATIVE Urine Nitrite NEGATIVE Ur Leukocyte Esterase NEGATIVE Urine WBC (Auto) 5 Urine RBC (Auto) 1 Impressions: Chest X-Ray 10/05/20 04:18 IMPRESSION: Underlying hyperinflation. Lungs are clear copyright 2011 [employer]- All Rights Reserved Assessment and Plan - Diagnosis (1) Acute on chronic respiratory failure with hypoxia and hypercapnia Is this a current diagnosis for this admission?: Yes Plan: Patient with a known history of severe COPD on 2 L home oxygen Presents with acute worsening of shortness of breath On physical examination patient is not in acute distress but has little to none air movement on auscultation Venous blood gas was significant for a pH of 7.08 with a PCO2 of 98 on arrival After being placed on BiPAP for an hour pH improved to 7.20 and PCO2 also dropped to 81 Chest x-ray shows hyperinflated lungs consistent with COPD but no acute findings transitioned to [place] Placed him on breathing treatment with levalbuterol due to tachycardia Continue Solu-Medrol 40 mg IV twice daily Will try to titrate down FiO2 and wean him off BiPAP when he tolerates Closely monitor respiratory parameters for any sign of impending respiratory failure (2) COPD exacerbation Is this a current diagnosis for this admission?: Yes Plan: No admitted with hypercapnic and hypoxic respiratory failure after presenting with shortness of breath Continue breathing treatment with levalbuterol, Solu-Medrol and o2 support Patient to continue follow-up with pulmonary at [place] on discharge (3) Anxiety Is this a current diagnosis for this admission?: Yes Plan: - started on Buspar - propranolol restarted (4) Hyperthyroidism Is this a current diagnosis for this admission?: Yes Plan: Continue methimazole propranolol started TSH level ordered will reorder MARSHALL uptake for work up of hyperthyroid TRab ordered - Time Time Spent with patient: 25-34 minutes Medications reviewed and adjusted accordingly: Yes Anticipated Discharge Disposition: Home, Self Care Anticipated Discharge Timeframe: tbd
[2020-10-05] MEDS: PROPRANOLOL HCL 20 MG TABLET PO SCH ×2 (15:12→21:11)
[2020-10-05] MEDS: SUCRALFATE 1 GM TABLET PO SCH ×2 (15:12→21:11)
[2020-10-05] MEDS: MAGNESIUM OXIDE 400 MG TABLET PO SCH (17:22)
[2020-10-05] MEDS: LEVALBUTEROL HCL NEB 0.63 MG/3 ML AMPUL NEB PRN (20:24)
[2020-10-05] MEDS: MONTELUKAST SODIUM 10 MG TABLET PO SCH (21:11)
[2020-10-05] MEDS: BUSPIRONE HCL 10 MG TABLET PO SCH (21:11)
[2020-10-06] MEDS: PROPRANOLOL HCL 20 MG TABLET PO SCH ×3 (05:29→21:21)
[2020-10-06 05:37] LABS: HEMATOCRIT 38.3 % (37.9-51.0); HEMOGLOBIN 12.6 g/dL (13.5-17.0); MEAN CORPUSCULAR HEMOGLOBIN 31.3 pg (27.0-33.4); MEAN CORPUSCULAR HGB CONC 32.9 g/dL (32.0-36.0); MEAN CORPUSCULAR VOLUME 95 fl (80-97); PLATELET COUNT 367 10^3/uL (150-450); RED BLOOD COUNT 4.02 10^6/uL (4.35-5.55); RED CELL DISTRIBUTION WIDTH 13.5 % (11.5-14.0); WHITE BLOOD COUNT 24.3 10^3/uL (4.0-10.5)
[2020-10-06 05:43] LABS: BLOOD UREA NITROGEN 14 mg/dL (7-20); CALCIUM 9.6 mg/dL (8.4-10.2); CARBON DIOXIDE 34 mmol/L (22-30); CHLORIDE 98 mmol/L (98-107); GLUCOSE 116 mg/dL (75-110); POTASSIUM 4.9 mmol/L (3.6-5.0)
[2020-10-06 05:55] LABS: ANION GAP 4 (5-19)
[2020-10-06 06:03] LABS: ABSOLUTE LYMPHOCYTES# (MANUAL) 2.2 10^3/uL (0.5-4.7); ABSOLUTE MONOCYTES # (MANUAL) 3.2 10^3/uL (0.1-1.4); BASOPHILS % (MANUAL) 0 % (0-2); EOSINOPHILS % (MANUAL) 0 % (0-6); LYMPHOCYTES % (MANUAL) 4 % (13-45); MONOCYTES % (MANUAL) 13 % (3-13); PLATELET COMMENT ADEQUATE; RBC MORPHOLOGY COMMENT NORMO-CYTIC/CHROMIC; SEGMENTED NEUTROPHILS % (MAN) 78 % (42-78); TOTAL CELLS COUNTED 100; TOXIC VACUOLATION PRESENT
[2020-10-06] MEDS: MAGNESIUM OXIDE 400 MG TABLET PO SCH ×3 (07:36→17:44)
[2020-10-06] MEDS: SUCRALFATE 1 GM TABLET PO SCH ×4 (07:36→21:21)
[2020-10-06] MEDS: FLUTICASONE NASAL SPRAY 50 MCG/SPRY 120 SPRAY/16 GM NASL SCH (09:52)
[2020-10-06] MEDS: FLUTICASONE/UMECLIDIN/VILANTER 100-62.5-25 MCG/DOSE IH SCH (09:54)
[2020-10-06] MEDS: LISINOPRIL 10 MG TABLET PO SCH ×2 (09:57→10:05)
[2020-10-06] MEDS: FAMOTIDINE 20 MG TABLET PO SCH ×2 (09:57→21:22)
[2020-10-06] MEDS: PANTOPRAZOLE SODIUM 40 MG TABLET.DR PO SCH (09:57)
[2020-10-06] MEDS: METHYLPREDNISOLONE INJ 40 MG/1 ML SDV IV SCH ×2 (09:57→21:22)
[2020-10-06] MEDS: BUSPIRONE HCL 10 MG TABLET PO SCH (09:57)
[2020-10-06] MEDS: METHIMAZOLE 5 MG TABLET PO SCH (09:57)
[2020-10-06] MEDS: ENOXAPARIN SODIUM INJ 40 MG/0.4 ML DISP.SYRIN SUBCUT SCH (10:04)
[2020-10-06] MEDS: LEVALBUTEROL HCL NEB 0.63 MG/3 ML AMPUL NEB PRN (11:19)
[2020-10-06] MEDS: LEVOFLOXACIN 750 MG TABLET PO SCH (12:28)
--- NOTE | 2020-10-06 13:44 | PDOC PROGRESS REPORT ---
Subjective Date:: 10/06/20 Subjective:: Patient was seen and examined at bedside. On 2L NC saturating 100%. Reports daniel thing much improved. I have resumed his home medications including propranolol and methimazole. Currently undergoing treatment for COPD exacerbation however I suspect his SOB is also driven by anxiety from hyperthyroidism. Will reorder Radiouptake iodine uptake scan to work up his hyperthyroidism. 10/06/20 Patient was seen and examined at bedside. Still has mild SOB but no further episodes of his "attacks". Unable to do radiouptake iodine thyroid scan as it will require him to be off Tapazole for 10 days. Will work him up for possible pheochromocytoma as he has episodic attacks of what sounds like anxiety attacks. He received 2 dose of buspirone and this interacts with the test so will wait until tomorrow to order tests. Reason For Visit: ACUTE HYPOXIC AND HYPERCAPNIC RESPIRATORY FAILURE Physical Exam Vital Signs: Temp Pulse Resp BP Pulse Ox 97.7 F 72 16 111/72 98 10/06/20 12:07 10/06/20 12:07 10/06/20 12:07 10/06/20 12:07 10/06/20 12:07 Intake & Output 10/05/20 10/06/20 10/07/20 06:59 06:59 06:59 Intake Total 2330 260 Output Total 725 Balance 1605 260 Weight 63.503 kg 59.1 kg General appearance: PRESENT: cooperative, mild distress Head exam: PRESENT: atraumatic, normocephalic Eye exam: PRESENT: EOMI, PERRLA Mouth exam: PRESENT: moist Neck exam: PRESENT: full ROM Respiratory exam: PRESENT: clear to auscultation abdifatah, symmetrical, unlabored Cardiovascular exam: PRESENT: RRR, +S1, +S2 GI/Abdominal exam: PRESENT: normal bowel sounds, soft. ABSENT: rebound, tenderness Extremities exam: PRESENT: full ROM Musculoskeletal exam: PRESENT: full ROM Neurological exam: PRESENT: alert, awake, oriented to person, oriented to place, oriented to time, oriented to situation Psychiatric exam: PRESENT: normal mood Skin exam: PRESENT: normal color Results Laboratory Results: 10/06/20 04:53 10/06/20 04:53 10/06/20 10/06/20 10/06/20 04:53 04:53 04:53 WBC 24.3 H RBC 4.02 L Hgb 12.6 L Hct 38.3 MCV 95 MCH 31.3 MCHC 32.9 RDW 13.5 Plt Count 367 Seg Neutrophils % Not Reportable Sodium 135.7 L Potassium 4.9 Chloride 98 Carbon Dioxide 34 H Anion Gap 4 L BUN 14 Creatinine 0.68 Est GFR ( Amer) > 60 Glucose 116 H Calcium 9.6 TSH 0.16 L Impressions: Chest X-Ray 10/05/20 04:18 IMPRESSION: Underlying hyperinflation. Lungs are clear copyright 2011 [employer]- All Rights Reserved Assessment and Plan - Diagnosis (1) Acute on chronic respiratory failure with hypoxia and hypercapnia Is this a current diagnosis for this admission?: Yes Plan: Patient with a known history of severe COPD on 2 L home oxygen Presents with acute worsening of shortness of breath On physical examination patient is not in acute distress but has little to none air movement on auscultation Venous blood gas was significant for a pH of 7.08 with a PCO2 of 98 on arrival After being placed on BiPAP for an hour pH improved to 7.20 and PCO2 also dropped to 81 Chest x-ray shows hyperinflated lungs consistent with COPD but no acute findings transitioned to CT Placed him on breathing treatment with levalbuterol due to tachycardia Continue Solu-Medrol 40 mg IV twice daily Will try to titrate down FiO2 and wean him off BiPAP when he tolerates Closely monitor respiratory parameters for any sign of impending respiratory failure (2) COPD exacerbation Is this a current diagnosis for this admission?: Yes Plan: admitted with hypercapnic and hypoxic respiratory failure after presenting with shortness of breath Continue breathing treatment with levalbuterol, Solu-Medrol and o2 support started on Levaquin for COPD exacerbation, he just finished a course of Doxy Patient to continue follow-up with pulmonary at [place] on discharge (3) Anxiety Is this a current diagnosis for this admission?: Yes Plan: - episodic attacks of SOB, palpitations not relieved by neb treatments. He says he can usually tell when its about to start - will test him for Pheochromocytoma, can also be from hyperthyroid - if other tests are negative, will refer to psych - will hold Buspar before ordering tests - propranolol restarted (4) Hyperthyroidism Is this a current diagnosis for this admission?: Yes Plan: Continue methimazole propranolol started TSH level ordered unable to do MARSHALL because the patient has to be off tapazole for 10 days TRab ordered (5) Leukocytosis Qualifiers: Leukocytosis type: other Qualified Code(s): D72.828 - Other elevated white blood cell count Is this a current diagnosis for this admission?: Yes Plan: - WBC 20.3 - likely reactive from steroids he was taking prior to admission - blood culture ordered - procal ordered - empirically started on Levaquin - Time Time Spent with patient: 25-34 minutes Medications reviewed and adjusted accordingly: Yes Anticipated Discharge Disposition: Home, Self Care Anticipated Discharge Timeframe: tbd
[2020-10-06] MEDS: MONTELUKAST SODIUM 10 MG TABLET PO SCH (21:21)
[2020-10-07] MEDS: LEVALBUTEROL HCL NEB 0.63 MG/3 ML AMPUL NEB PRN ×2 (00:45→18:39)
[2020-10-07] MEDS: PROPRANOLOL HCL 20 MG TABLET PO SCH ×3 (06:14→21:52)
[2020-10-07] MEDS: MAGNESIUM OXIDE 400 MG TABLET PO SCH ×3 (08:33→17:01)
[2020-10-07] MEDS: SUCRALFATE 1 GM TABLET PO SCH ×4 (08:33→21:51)
[2020-10-07] MEDS: FLUTICASONE NASAL SPRAY 50 MCG/SPRY 120 SPRAY/16 GM NASL SCH (10:03)
[2020-10-07] MEDS: PANTOPRAZOLE SODIUM 40 MG TABLET.DR PO SCH (10:04)
[2020-10-07] MEDS: FAMOTIDINE 20 MG TABLET PO SCH ×2 (10:04→21:52)
[2020-10-07] MEDS: METHIMAZOLE 5 MG TABLET PO SCH (10:04)
[2020-10-07] MEDS: LEVOFLOXACIN 750 MG TABLET PO SCH (10:04)
[2020-10-07] MEDS: ENOXAPARIN SODIUM INJ 40 MG/0.4 ML DISP.SYRIN SUBCUT SCH (10:06)
[2020-10-07] MEDS: METHYLPREDNISOLONE INJ 40 MG/1 ML SDV IV SCH ×2 (10:07→21:52)
[2020-10-07] MEDS: FLUTICASONE/UMECLIDIN/VILANTER 100-62.5-25 MCG/DOSE IH SCH (11:18)
[2020-10-07] MEDS ORDERED: ONDANSETRON HCL INJ/PF 4 MG/2 ML SDV IV PRN (15:30)
--- NOTE | 2020-10-07 15:38 | PDOC PROGRESS REPORT ---
Subjective Date:: 10/07/20 Subjective:: Patient was seen and examined at bedside. On 2L NC saturating 100%. Reports daniel thing much improved. I have resumed his home medications including propranolol and methimazole. Currently undergoing treatment for COPD exacerbation however I suspect his SOB is also driven by anxiety from hyperthyroidism. Will reorder Radiouptake iodine uptake scan to work up his hyperthyroidism. 10/06/20 Patient was seen and examined at bedside. Still has mild SOB but no further episodes of his "attacks". Unable to do radiouptake iodine thyroid scan as it will require him to be off Tapazole for 10 days. Will work him up for possible pheochromocytoma as he has episodic attacks of what sounds like anxiety attacks. He received 2 dose of buspirone and this interacts with the test so will wait until tomorrow to order tests. 10/07/20 Patient was seen and examined at bedside. No further episode of SOB. Otherwise stable on room air. Work up for Pheochromocytoma ordered. Reason For Visit: ACUTE HYPOXIC AND HYPERCAPNIC RESPIRATORY FAILURE Physical Exam Vital Signs: Temp Pulse Resp BP Pulse Ox 97.9 F 79 20 130/87 H 96 10/07/20 11:54 10/07/20 11:54 10/07/20 11:54 10/07/20 11:54 10/07/20 11:54 Intake & Output 10/06/20 10/07/20 10/08/20 06:59 06:59 06:59 Intake Total 2330 760 Output Total 725 200 Balance 1605 560 Weight 59.1 kg 56 kg General appearance: PRESENT: no acute distress, cooperative Head exam: PRESENT: atraumatic, normocephalic Eye exam: PRESENT: EOMI, PERRLA Mouth exam: PRESENT: moist Neck exam: PRESENT: full ROM Respiratory exam: PRESENT: clear to auscultation abdifatah, symmetrical, unlabored Cardiovascular exam: PRESENT: RRR, +S1, +S2 Pulses: PRESENT: +2 pedal pulses bilateral GI/Abdominal exam: PRESENT: normal bowel sounds, soft. ABSENT: rebound, tenderness Extremities exam: PRESENT: full ROM Musculoskeletal exam: PRESENT: full ROM Neurological exam: PRESENT: alert, awake, oriented to person, oriented to place, oriented to time, oriented to situation Psychiatric exam: PRESENT: normal mood Skin exam: PRESENT: normal color Results Laboratory Results: 10/06/20 04:53 10/06/20 04:53 Impressions: Chest X-Ray 10/05/20 04:18 IMPRESSION: Underlying hyperinflation. Lungs are clear copyright 2010 [employer]- All Rights Reserved Assessment and Plan - Diagnosis (1) Acute on chronic respiratory failure with hypoxia and hypercapnia Is this a current diagnosis for this admission?: Yes Plan: Patient with a known history of severe COPD on 2 L home oxygen Presents with acute worsening of shortness of breath On physical examination patient is not in acute distress but has little to none air movement on auscultation Venous blood gas was significant for a pH of 7.08 with a PCO2 of 98 on arrival After being placed on BiPAP for an hour pH improved to 7.20 and PCO2 also dropped to 81 Chest x-ray shows hyperinflated lungs consistent with COPD but no acute findings weaned off nasal cannula Placed him on breathing treatment with levalbuterol due to tachycardia Continue Solu-Medrol 40 mg IV twice daily (2) COPD exacerbation Is this a current diagnosis for this admission?: Yes Plan: admitted with hypercapnic and hypoxic respiratory failure after presenting with shortness of breath Continue breathing treatment with levalbuterol, Solu-Medrol and o2 support started on Levaquin for COPD exacerbation, he just finished a course of Doxy Patient to continue follow-up with pulmonary at [place] on discharge (3) Anxiety Is this a current diagnosis for this admission?: Yes Plan: - episodic attacks of SOB, palpitations not relieved by neb treatments. He says he can usually tell when its about to start - 24 hr urine metanephrine and catecholamine - if other tests are negative, will refer to psych - propranolol restarted (4) Hyperthyroidism Is this a current diagnosis for this admission?: Yes Plan: Continue methimazole propranolol started TSH level ordered unable to do MARSHALL because the patient has to be off tapazole for 10 days TRab ordered (5) Leukocytosis Qualifiers: Leukocytosis type: other Qualified Code(s): D72.828 - Other elevated white blood cell count Is this a current diagnosis for this admission?: Yes Plan: - WBC 20.3 - likely reactive from steroids he was taking prior to admission - blood culture ordered - procal ordered - empirically started on Levaquin - Time Time Spent with patient: 25-34 minutes Medications reviewed and adjusted accordingly: Yes Anticipated Discharge Disposition: Home, Self Care Anticipated Discharge Timeframe: tbd
[2020-10-07] MEDS ORDERED: NITROGLYCERIN 0.4 MG/TAB 25 TAB/BOTTLE SL ONE (19:30)
--- NOTE | 2020-10-07 19:55 | EKG REPORT ---
SEVERITY:- ABNORMAL ECG - SINUS RHYTHM BIATRIAL ABNORMALITIES BORDERLINE RIGHT AXIS DEVIATION ST ELEVATION NOT TYPICAL OF PERICARDITIS : Confirmed by: Kevin Mercado MD 07-Oct-2020 19:54:41
[2020-10-07] MEDS: MONTELUKAST SODIUM 10 MG TABLET PO SCH (21:51)
[2020-10-08] MEDS: PROPRANOLOL HCL 20 MG TABLET PO SCH ×3 (05:58→22:00)
[2020-10-08] MEDS: MAGNESIUM OXIDE 400 MG TABLET PO SCH ×3 (07:43→16:53)
[2020-10-08] MEDS: SUCRALFATE 1 GM TABLET PO SCH ×4 (07:43→22:00)
[2020-10-08] MEDS: FLUTICASONE NASAL SPRAY 50 MCG/SPRY 120 SPRAY/16 GM NASL SCH (09:37)
[2020-10-08] MEDS: METHYLPREDNISOLONE INJ 40 MG/1 ML SDV IV SCH ×2 (09:38→22:00)
[2020-10-08] MEDS: ENOXAPARIN SODIUM INJ 40 MG/0.4 ML DISP.SYRIN SUBCUT SCH (09:40)
[2020-10-08] MEDS: LEVOFLOXACIN 750 MG TABLET PO SCH (09:43)
[2020-10-08] MEDS: METHIMAZOLE 5 MG TABLET PO SCH (09:43)
[2020-10-08] MEDS: FAMOTIDINE 20 MG TABLET PO SCH ×2 (09:43→22:00)
[2020-10-08] MEDS: PANTOPRAZOLE SODIUM 40 MG TABLET.DR PO SCH (09:43)
[2020-10-08] MEDS: FLUTICASONE/UMECLIDIN/VILANTER 100-62.5-25 MCG/DOSE IH SCH (09:45)
[2020-10-08] MEDS: LEVALBUTEROL HCL NEB 0.63 MG/3 ML AMPUL NEB PRN ×2 (09:55→21:37)
[2020-10-08 10:07] LABS: HEMATOCRIT 41.3 % (37.9-51.0); HEMOGLOBIN 13.6 g/dL (13.5-17.0); MEAN CORPUSCULAR HEMOGLOBIN 31.2 pg (27.0-33.4); MEAN CORPUSCULAR VOLUME 95 fl (80-97); PLATELET COUNT 376 10^3/uL (150-450); RED BLOOD COUNT 4.37 10^6/uL (4.35-5.55); RED CELL DISTRIBUTION WIDTH 13.5 % (11.5-14.0); WHITE BLOOD COUNT 19.5 10^3/uL (4.0-10.5)
[2020-10-08 10:28] LABS: ABSOLUTE LYMPHOCYTES# (MANUAL) 4.3 10^3/uL (0.5-4.7); ABSOLUTE MONOCYTES # (MANUAL) 1.6 10^3/uL (0.1-1.4); BASOPHILS % (MANUAL) 0 % (0-2); EOSINOPHILS % (MANUAL) 0 % (0-6); LYMPHOCYTES % (MANUAL) 16 % (13-45); MONOCYTES % (MANUAL) 8 % (3-13); SEGMENTED NEUTROPHILS % (MAN) 70 % (42-78); TOTAL CELLS COUNTED 100
[2020-10-08 10:29] LABS: PLATELET COMMENT ADEQUATE; RBC MORPHOLOGY COMMENT NORMO-CYTIC/CHROMIC
[2020-10-08 10:34] LABS: ALKALINE PHOSPHATASE 49 U/L (38-126); ANION GAP 7 (5-19); ASPARTATE AMINO TRANSFERASE 19 U/L (17-59); BILIRUBIN,DIRECT 0.3 mg/dL (0.0-0.4); BILIRUBIN,TOTAL 0.5 mg/dL (0.2-1.3); BLOOD UREA NITROGEN 20 mg/dL (7-20); CALCIUM 10.3 mg/dL (8.4-10.2); CARBON DIOXIDE 36 mmol/L (22-30); CHLORIDE 93 mmol/L (98-107); GLUCOSE 113 mg/dL (75-110); POTASSIUM 4.5 mmol/L (3.6-5.0); TOTAL PROTEIN 7.1 g/dL (6.3-8.2)
--- NOTE | 2020-10-08 14:40 | PDOC PROGRESS REPORT ---
Subjective Date:: 10/08/20 Subjective:: Patient was seen and examined at bedside. On 2L NC saturating 100%. Reports daniel thing much improved. I have resumed his home medications including propranolol and methimazole. Currently undergoing treatment for COPD exacerbation however I suspect his SOB is also driven by anxiety from hyperthyroidism. Will reorder Radiouptake iodine uptake scan to work up his hyperthyroidism. 10/06/20 Patient was seen and examined at bedside. Still has mild SOB but no further episodes of his "attacks". Unable to do radiouptake iodine thyroid scan as it will require him to be off Tapazole for 10 days. Will work him up for possible pheochromocytoma as he has episodic attacks of what sounds like anxiety attacks. He received 2 dose of buspirone and this interacts with the test so will wait until tomorrow to order tests. 10/07/20 Patient was seen and examined at bedside. No further episode of SOB. Otherwise stable on room air. Work up for Pheochromocytoma ordered. 10/08/20 Patient was seen and examined at bedside. Appears comfortable in bed. No episode of SOB. Echo done, pending result. No new complains. Reason For Visit: ACUTE HYPOXIC AND HYPERCAPNIC RESPIRATORY FAILURE Physical Exam Vital Signs: Temp Pulse Resp BP Pulse Ox 98.2 F 89 18 114/83 95 10/08/20 12:03 10/08/20 12:03 10/08/20 12:03 10/08/20 12:03 10/08/20 12:03 Intake & Output 10/07/20 10/08/20 10/09/20 06:59 06:59 06:59 Intake Total 760 480 260 Output Total 200 680 200 Balance 560 -200 60 Weight 56 kg 58.2 kg General appearance: PRESENT: no acute distress, cooperative Head exam: PRESENT: atraumatic, normocephalic Eye exam: PRESENT: EOMI, PERRLA Mouth exam: PRESENT: moist Neck exam: PRESENT: full ROM Respiratory exam: PRESENT: clear to auscultation abdiftaah, symmetrical, unlabored Cardiovascular exam: PRESENT: RRR, +S1, +S2 GI/Abdominal exam: PRESENT: normal bowel sounds, soft. ABSENT: rebound, tenderness Extremities exam: PRESENT: full ROM Musculoskeletal exam: PRESENT: full ROM Neurological exam: PRESENT: alert, awake, oriented to person, oriented to place, oriented to time, oriented to situation Psychiatric exam: PRESENT: normal mood Skin exam: PRESENT: normal color Results Laboratory Results: 10/08/20 09:19 10/08/20 09:19 10/08/20 10/08/20 09:19 09:19 WBC 19.5 H RBC 4.37 Hgb 13.6 Hct 41.3 MCV 95 MCH 31.2 MCHC 33.0 RDW 13.5 Plt Count 376 Seg Neutrophils % Not Reportable Sodium 135.6 L Potassium 4.5 Chloride 93 L Carbon Dioxide 36 H Anion Gap 7 BUN 20 Creatinine 0.89 Est GFR ( Amer) > 60 Glucose 113 H Calcium 10.3 H Total Bilirubin 0.5 AST 19 Alkaline Phosphatase 49 Total Protein 7.1 Albumin 4.0 10/07/20 19:25 Troponin I < 0.012 Impressions: Chest X-Ray 10/05/20 04:18 IMPRESSION: Underlying hyperinflation. Lungs are clear copyright 2010 [employer]- All Rights Reserved Assessment and Plan - Diagnosis (1) Acute on chronic respiratory failure with hypoxia and hypercapnia Is this a current diagnosis for this admission?: Yes Plan: Patient with a known history of severe COPD on 2 L home oxygen Presents with acute worsening of shortness of breath On physical examination patient is not in acute distress but has little to none air movement on auscultation Venous blood gas was significant for a pH of 7.08 with a PCO2 of 98 on arrival After being placed on BiPAP for an hour pH improved to 7.20 and PCO2 also dropped to 81 Chest x-ray shows hyperinflated lungs consistent with COPD but no acute findings weaned off nasal cannula Placed him on breathing treatment with levalbuterol due to tachycardia Continue Solu-Medrol 40 mg IV twice daily (2) COPD exacerbation Is this a current diagnosis for this admission?: Yes Plan: admitted with hypercapnic and hypoxic respiratory failure after presenting with shortness of breath Continue breathing treatment with levalbuterol, Solu-Medrol and o2 support started on Levaquin for COPD exacerbation, he just finished a course of Doxy Patient to continue follow-up with pulmonary at [place] on discharge (3) Anxiety Is this a current diagnosis for this admission?: Yes Plan: - episodic attacks of SOB, palpitations not relieved by neb treatments. He says he can usually tell when its about to start - 24 hr urine metanephrine and catecholamine - echo ordered - if other tests are negative, will refer to psych - propranolol restarted (4) Hyperthyroidism Is this a current diagnosis for this admission?: Yes Plan: Continue methimazole propranolol started TSH level ordered unable to do MARSHALL because the patient has to be off tapazole for 10 days TRab ordered (5) Leukocytosis Qualifiers: Leukocytosis type: other Qualified Code(s): D72.828 - Other elevated white blood cell count Is this a current diagnosis for this admission?: Yes Plan: - WBC 20.3>19.5 - likely reactive from steroids he was taking prior to admission - blood culture ordered - procal ordered - empirically started on Levaquin - Time Time Spent with patient: 25-34 minutes Medications reviewed and adjusted accordingly: Yes Anticipated Discharge Disposition: Home, Self Care Anticipated Discharge Timeframe: within 48 hours
--- NOTE | 2020-10-08 14:57 | XCELERA REPORT ---
[address] [address] Transthoracic Echocardiogram Report Name: LALA DE LA TORRE Age: 49 yrs Gender: Male : 1970 Patient Status: Inpatient Patient Location: [address] [place], [place] [address] Study Date: 10/08/2020 10:24 AM Height: 65 in Weight: 123 lb BSA: 1.6 m2 Procedure: A complete two-dimensional transthoracic echocardiogram was performed (2D, M-mode, spectral and color flow Doppler). Study Quality: Fair. Reason For Study: SOB Ordering Physician: SEVEN NG Performed By: Thelma De Paz Interpretation Summary The left ventricle is normal in size. Left ventricular systolic function is low normal. The Ejection Fraction estimate is 45-50%. Doppler measurements suggest impaired left ventricular relaxation, which is associated with grade I/IV or mild diastolic dysfunction. Mild hypokinesis of the basal septum and inferior wall. Mildly calcified aortic valve. Cannot assess for aortic stenosis due to poor interrogation of the valve. Pulmonic valve was not well visualized. IVC collapsed less than 50% with the respiratory cycle suggesting elevated RAP. Pulmonary pressures cannot be estimated as the TR jet was not measured. No prior studies for comparison. MMode/2D Measurements & Calculations RVDd: 1.8 cm LVIDd: 4.2 cm FS: 34.0 % Ao root diam: 2.8 cm IVSd: 0.85 cm LVIDs: 2.8 cm EDV(Teich): Ao root area: 79.8 ml LVPWd: 0.81 cm 6.0 cm2 ESV(Teich): LA dimension: 2.5 cm 29.3 ml EF(Teich): 63.3 % LVLd ap4: 7.1 cm SV(MOD-sp4): EDV(MOD-sp4): 35.0 ml 76.0 ml LVLs ap4: 6.3 cm ESV(MOD-sp4): 41.0 ml EF(MOD-sp4): 46.1 % Doppler Measurements & Calculations MV E max brian: MV P1/2t max brian: Ao V2 max: LV V1 max P.7 cm/sec 71.9 cm/sec 95.0 cm/sec 2.1 mmHg MV A max brian: MV P1/2t: 60.5 msec Ao max PG: LV V1 max: 65.6 cm/sec 3.6 mmHg 73.1 cm/sec MVA(P1/2t): 3.6 cm2 MV E/A: 0.89 MV dec slope: 348.3 cm/sec2 MV dec time: 0.18 sec PA V2 max: MV P1/2t-pr_phl: 109.5 cm/sec 60.5 msec PA max P.8 mmHg Left Ventricle The left ventricle is normal in size. Left ventricular systolic function is low normal. The Ejection Fraction estimate is 45-50%. Doppler measurements suggest impaired left ventricular relaxation, which is associated with grade I/IV or mild diastolic dysfunction. Mild hypokinesis of the basal septum and inferior wall. Right Ventricle The right ventricle is grossly normal size. The right ventricular systolic function is normal. Atria The right atrium is normal. The left atrial size is normal. The interatrial septum is difficult to see, but appears to be grossly normal. Mitral Valve The mitral valve is normal in structure and function. There is no evidence of mitral valve prolapse. There is no mitral valve stenosis. There is no mitral regurgitation noted. Aortic Valve The aortic valve is trileaflet. The aortic valve is mildly calcified. Cannot assess for aortic stenosis due to poor interrogation of the valve. No aortic regurgitation is present. Tricuspid Valve The tricuspid is normal in structure and function. There is no tricuspid valve prolapse. There is no tricuspid stenosis. No tricuspid regurgitation. Pulmonic Valve The pulmonic valve is not well visualized. There is no pulmonic valvular stenosis. There is no pulmonic valvular regurgitation. Great Vessels The aortic root is normal size. The inferior vena cava appeared normal and decreased < 50% with respiration (RAP 10-15 mmHg). Effusions There is no pericardial effusion. There is no pleural effusion. : SEVEN NG Antonio
[2020-10-08] MEDS: MONTELUKAST SODIUM 10 MG TABLET PO SCH (22:00)
[2020-10-09 00:36] LABS: THYROID PEROXIDASE (TPO) AB <9 IU/mL (0-34)
[2020-10-09] MEDS: PROPRANOLOL HCL 20 MG TABLET PO SCH ×3 (06:51→22:31)
[2020-10-09 08:11] LABS: THYROGLOBULIN AB <1.0 IU/mL (0.0-0.9)
[2020-10-09] MEDS: FAMOTIDINE 20 MG TABLET PO SCH ×2 (09:51→22:30)
[2020-10-09] MEDS: SUCRALFATE 1 GM TABLET PO SCH ×4 (09:51→22:30)
[2020-10-09] MEDS: METHIMAZOLE 5 MG TABLET PO SCH (09:51)
[2020-10-09] MEDS: PANTOPRAZOLE SODIUM 40 MG TABLET.DR PO SCH (09:51)
[2020-10-09] MEDS: LEVOFLOXACIN 750 MG TABLET PO SCH (09:52)
[2020-10-09] MEDS: FLUTICASONE NASAL SPRAY 50 MCG/SPRY 120 SPRAY/16 GM NASL SCH (09:52)
[2020-10-09] MEDS: MAGNESIUM OXIDE 400 MG TABLET PO SCH ×3 (09:52→17:52)
[2020-10-09] MEDS: METHYLPREDNISOLONE INJ 40 MG/1 ML SDV IV SCH (09:53)
[2020-10-09] MEDS: ENOXAPARIN SODIUM INJ 40 MG/0.4 ML DISP.SYRIN SUBCUT SCH (09:53)
[2020-10-09] MEDS: FLUTICASONE/UMECLIDIN/VILANTER 100-62.5-25 MCG/DOSE IH SCH (09:53)
--- NOTE | 2020-10-09 13:33 | PDOC PROGRESS REPORT ---
Subjective Date:: 10/09/20 Subjective:: Patient was seen and examined at bedside. On 2L NC saturating 100%. Reports daniel thing much improved. I have resumed his home medications including propranolol and methimazole. Currently undergoing treatment for COPD exacerbation however I suspect his SOB is also driven by anxiety from hyperthyroidism. Will reorder Radiouptake iodine uptake scan to work up his hyperthyroidism. 10/06/20 Patient was seen and examined at bedside. Still has mild SOB but no further episodes of his "attacks". Unable to do radiouptake iodine thyroid scan as it will require him to be off Tapazole for 10 days. Will work him up for possible pheochromocytoma as he has episodic attacks of what sounds like anxiety attacks. He received 2 dose of buspirone and this interacts with the test so will wait until tomorrow to order tests. 10/07/20 Patient was seen and examined at bedside. No further episode of SOB. Otherwise stable on room air. Work up for Pheochromocytoma ordered. 10/08/20 Patient was seen and examined at bedside. Appears comfortable in bed. No episode of SOB. Echo done, pending result. No new complains. 10/09/20 Patient was seen and examined at bedside. No new complains, echo unremarkable. No further episodes. Awaiting pheocromocytoma work up. for the meantime I have increased his tapazole and restart his buspar. Reason For Visit: ACUTE HYPOXIC AND HYPERCAPNIC RESPIRATORY FAILURE Physical Exam Vital Signs: Temp Pulse Resp BP Pulse Ox 98.0 F 71 18 126/94 H 100 10/09/20 07:56 10/09/20 07:56 10/09/20 07:56 10/09/20 07:56 10/09/20 12:16 Intake & Output 10/08/20 10/09/20 10/10/20 06:59 06:59 06:59 Intake Total 480 1210 Output Total 680 1450 Balance -200 -240 Weight 58.2 kg 57.1 kg General appearance: PRESENT: no acute distress, cooperative Head exam: PRESENT: atraumatic, normocephalic Eye exam: PRESENT: EOMI, PERRLA Mouth exam: PRESENT: moist Neck exam: PRESENT: full ROM Respiratory exam: PRESENT: clear to auscultation abdifatah, symmetrical, unlabored Cardiovascular exam: PRESENT: RRR, +S1, +S2 Pulses: PRESENT: +2 pedal pulses bilateral GI/Abdominal exam: PRESENT: normal bowel sounds, soft. ABSENT: rebound, tenderness Extremities exam: PRESENT: full ROM Musculoskeletal exam: PRESENT: full ROM Neurological exam: PRESENT: alert, awake, oriented to person, oriented to place, oriented to time, oriented to situation Psychiatric exam: PRESENT: normal mood Skin exam: PRESENT: normal color Results Laboratory Results: 10/08/20 09:19 10/08/20 09:19 10/07/20 19:25 Troponin I < 0.012 Impressions: Chest X-Ray 10/05/20 04:18 IMPRESSION: Underlying hyperinflation. Lungs are clear copyright 2010 [employer]- All Rights Reserved Assessment and Plan - Diagnosis (1) Acute on chronic respiratory failure with hypoxia and hypercapnia Is this a current diagnosis for this admission?: Yes Plan: Patient with a known history of severe COPD on 2 L home oxygen Presents with acute worsening of shortness of breath On physical examination patient is not in acute distress but has little to none air movement on auscultation Venous blood gas was significant for a pH of 7.08 with a PCO2 of 98 on arrival After being placed on BiPAP for an hour pH improved to 7.20 and PCO2 also rosamaria pped to 81 Chest x-ray shows hyperinflated lungs consistent with COPD but no acute findings weaned off nasal cannula Placed him on breathing treatment with levalbuterol due to tachycardia Continue Solu-Medrol 40 mg IV twice daily (2) COPD exacerbation Is this a current diagnosis for this admission?: Yes Plan: admitted with hypercapnic and hypoxic respiratory failure after presenting with shortness of breath Continue breathing treatment with levalbuterol, switched to oral streoids and o2 support as needed started on Levaquin for COPD exacerbation, he just finished a course of Doxy Patient to continue follow-up with pulmonary at [place] on discharge (3) Anxiety Is this a current diagnosis for this admission?: Yes Plan: - episodic attacks of SOB, palpitations not relieved by neb treatments. He says he can usually tell when its about to start - 24 hr urine metanephrine and catecholamine - echo EF 45 to 50%, grade 1 out of 4 mild diastolic dysfunction, mild hypokinesis of the basal septum and inferior wall. LV systolic function is low normal. - propranolol restarted - will discharge on buspar (4) Hyperthyroidism Is this a current diagnosis for this admission?: Yes Plan: Continue methimazole propranolol started TSH level 0.16. He has not been on tapazole for long so I do not suspect his TSH to change yet unable to do MARSHALL because the patient has to be off tapazole for 10 days TRab negative (5) Leukocytosis Qualifiers: Leukocytosis type: other Qualified Code(s): D72.828 - Other elevated white blood cell count Is this a current diagnosis for this admission?: Yes Plan: - WBC 20.3>19.5 - likely reactive from steroids he was taking prior to admission - blood culture negative - procalcitonin normal - empirically started on Levaquin complete 7 days of treatment. - Time Time Spent with patient: 25-34 minutes Medications reviewed and adjusted accordingly: Yes Anticipated Discharge Disposition: Home, Self Care Anticipated Discharge Timeframe: within 48 hours
[2020-10-09] MEDS: LEVALBUTEROL HCL NEB 0.63 MG/3 ML AMPUL NEB PRN (21:57)
[2020-10-09] MEDS: MONTELUKAST SODIUM 10 MG TABLET PO SCH (22:30)
[2020-10-10] MEDS: PROPRANOLOL HCL 20 MG TABLET PO SCH (05:08)
[2020-10-10 08:01] VITALS: BP 118/84
[2020-10-10 08:30] LABS: ABSOLUTE BASOPHILS # (AUTO) 0.2 10^3/uL (0.0-0.2); ABSOLUTE LYMPHOCYTES (AUTO) 4.9 10^3/uL (0.5-4.7); ABSOLUTE MONOCYTES (AUTO) 2.1 10^3/uL (0.1-1.4); ABSOLUTE NEUT (AUTO) 10.8 10^3/uL (1.7-8.2); BASOPHILS % (AUTO) 1.2 % (0-2); EOSINOPHILS % (AUTO) 0.3 % (0-6); HEMATOCRIT 42.5 % (37.9-51.0); HEMOGLOBIN 14.2 g/dL (13.5-17.0); LYMPHOCYTES % (AUTO) 27.3 % (13-45); MEAN CORPUSCULAR HEMOGLOBIN 31.6 pg (27.0-33.4); MEAN CORPUSCULAR HGB CONC 33.3 g/dL (32.0-36.0); MEAN CORPUSCULAR VOLUME 95 fl (80-97); MONOCYTES % (AUTO) 11.7 % (3-13); PLATELET COUNT 346 10^3/uL (150-450); RED BLOOD COUNT 4.48 10^6/uL (4.35-5.55); RED CELL DISTRIBUTION WIDTH 13.5 % (11.5-14.0); SEGMENTED NEUTROPHILS % (AUTO) 59.5 % (42-78); TOTAL CELLS COUNTED % (AUTO) 100 %; WHITE BLOOD COUNT 18.1 10^3/uL (4.0-10.5)
[2020-10-10 08:52] LABS: ALBUMIN 3.6 g/dL (3.5-5.0); ALKALINE PHOSPHATASE 41 U/L (38-126); ASPARTATE AMINO TRANSFERASE 17 U/L (17-59); BILIRUBIN,DIRECT 0.2 mg/dL (0.0-0.4); BILIRUBIN,TOTAL 0.6 mg/dL (0.2-1.3); BLOOD UREA NITROGEN 20 mg/dL (7-20); CALCIUM 9.3 mg/dL (8.4-10.2); CARBON DIOXIDE 36 mmol/L (22-30); CHLORIDE 92 mmol/L (98-107); GLUCOSE 122 mg/dL (75-110); POTASSIUM 4.3 mmol/L (3.6-5.0); TOTAL PROTEIN 6.2 g/dL (6.3-8.2)
[2020-10-10 08:54] LABS: ANION GAP 4 (5-19)
[2020-10-10] MEDS: SUCRALFATE 1 GM TABLET PO SCH ×2 (09:23→11:10)
[2020-10-10] MEDS: MAGNESIUM OXIDE 400 MG TABLET PO SCH (09:23)
[2020-10-10] MEDS: PANTOPRAZOLE SODIUM 40 MG TABLET.DR PO SCH (09:23)
[2020-10-10] MEDS: FAMOTIDINE 20 MG TABLET PO SCH (09:23)
[2020-10-10] MEDS: ENOXAPARIN SODIUM INJ 40 MG/0.4 ML DISP.SYRIN SUBCUT SCH (09:23)
[2020-10-10] MEDS: LEVOFLOXACIN 750 MG TABLET PO SCH (09:23)
[2020-10-10] MEDS ORDERED: PREDNISONE 20 MG TABLET PO SCH (10:00)
[2020-10-10] MEDS: METHIMAZOLE 5 MG TABLET PO SCH (11:10)
--- NOTE | 2020-10-10 21:09 | PDOC DISCHARGE SUMMARY ---
Impression - Admit/DC Date/PCP Admission Date/Primary Care Provider: 10/05/20 06:43 VIPIN DOLL PA-C Discharge Date: 10/10/20 - Discharge Diagnosis (1) Acute on chronic respiratory failure with hypoxia and hypercapnia Is this a current diagnosis for this admission?: Yes (2) COPD exacerbation Is this a current diagnosis for this admission?: Yes (3) Anxiety Is this a current diagnosis for this admission?: Yes (4) Hyperthyroidism Is this a current diagnosis for this admission?: Yes (5) Leukocytosis Is this a current diagnosis for this admission?: Yes - Assessment Summary: (1) Acute on chronic respiratory failure with hypoxia and hypercapnia Is this a current diagnosis for this admission?: Yes Plan: Patient with a known history of severe COPD on 2 L home oxygen Presents with acute worsening of shortness of breath On physical examination patient is not in acute distress but has little to none air movement on auscultation Venous blood gas was significant for a pH of 7.08 with a PCO2 of 98 on arrival After being placed on BiPAP for an hour pH improved to 7.20 and PCO2 also dropped to 81 Chest x-ray shows hyperinflated lungs consistent with COPD but no acute findings weaned off nasal cannula Placed him on breathing treatment with levalbuterol due to tachycardia Continue Solu-Medrol 40 mg IV twice daily (2) COPD exacerbation Is this a current diagnosis for this admission?: Yes Plan: admitted with hypercapnic and hypoxic respiratory failure after presenting with shortness of breath Continue breathing treatment with levalbuterol, switched to oral streoids and o2 support as needed started on Levaquin for COPD exacerbation, he just finished a course of Doxy Patient to continue follow-up with pulmonary at [facility] on discharge (3) Anxiety Is this a current diagnosis for this admission?: Yes Plan: - episodic attacks of SOB, palpitations not relieved by neb treatments. He says he can usually tell when its about to start - 24 hr urine metanephrine and catecholamine - echo EF 45 to 50%, grade 1 out of 4 mild diastolic dysfunction, mild hypokinesis of the basal septum and inferior wall. LV systolic function is low normal. - propranolol restarted - will discharge on buspar (4) Hyperthyroidism Is this a current diagnosis for this admission?: Yes Plan: Continue methimazole propranolol started TSH level 0.16. He has not been on tapazole for long so I do not suspect his TSH to change yet unable to do MARSHALL because the patient has to be off tapazole for 10 days TRab negative (5) Leukocytosis Qualifiers: Leukocytosis type: other Qualified Code(s): D72.828 - Other elevated white blood cell count Is this a current diagnosis for this admission?: Yes Plan: - WBC 20.3>19.5 - likely reactive from steroids he was taking prior to admission - blood culture negative - procalcitonin normal - empirically started on Levaquin complete 7 days of treatment. - Additional Information Resuscitation Status: Full Code Discharge Diet: As Tolerated Discharge Activity: Activity As Tolerated Referrals: VIPIN DOLL PA-C [Primary Care Provider] - Follow up as needed Prescriptions: Buspirone HCl [Buspar 10 mg Tablet] 10 mg PO BID 30 Days #60 tablet Prednisone [Deltasone 10 mg Tablet] 10 mg PO ASDIR #21 tablet Methimazole [Tapazole 5 mg Tablet] 5 mg PO DAILY 30 Days #30 tablet Fluticasone/Umeclidin/Vilanter [Trelegy 100-62.5-25 Mcg Ellipta 14 Dose/Dpi] 1 inh IH DAILY 30 Days #2 inhaler Home Medications: Albuterol Sulfate [Albuterol Sulfate Hfa] 2 puff IH Q4HP PRN 09/25/20 Cetirizine HCl [Zyrtec] 10 mg PO DAILY 09/25/20 Magnesium Oxide [Mag-Ox 400 mg Tablet] 400 mg PO MEALS #90 tablet 09/29/20 Montelukast Sodium [Singulair 10 mg Tablet] 10 mg PO QHS #30 tablet 09/29/20 Pantoprazole Sodium [Protonix [address] Tablet] 40 mg PO DAILY #30 tablet.dr 09/29/20 Propranolol HCl [Inderal 20 mg Tablet] 20 mg PO Q8 #90 tablet 09/29/20 Sucralfate [Carafate 1 gm Tablet] 1 gm PO ACHS #120 tablet 09/29/20 Azelastine/Fluticasone [Azelastin-Flutic 137-50Mcg Spr] 2 spray NS BID 10/05/20 Fluticasone Propionate [Flonase Nasal [place] 50 Mcg/[place] 16 gm] 1 spray NASL DAILY 10/05/20 Ipratropium/Albuterol Sulfate [Duoneb 3 ml Ampul] 3 ml NEB RTQ6HP PRN 10/05/20 Buspirone HCl [Buspar 10 mg Tablet] 10 mg PO BID 30 Days #60 tablet 10/10/20 Fluticasone/Umeclidin/Vilanter [Trelegy 100-62.5-25 Mcg Ellipta 14 Dose/Dpi] 1 inh IH DAILY 30 Days #2 inhaler 10/10/20 Methimazole [Tapazole 5 mg Tablet] 5 mg PO DAILY 30 Days #30 tablet 10/10/20 Prednisone [Deltasone 10 mg Tablet] 10 mg PO ASDIR #21 tablet 10/10/20 History of Present Illiness History of Present Illness: LALA DE LA TORRE is a 49 year old male, with a history of COPD on 2 L intranasal at home oxygen, hypertension and hyperthyroidism who presents with acute worsening of shortness of breath of 1 day duration. Patient was admitted for similar symptoms twice in the past 1 month. This episode started suddenly pain he wake up to go to the [facility] last night. Despite using albuterol inhaler multiple times he is shortness of breath did not improve and decided to come to the ED for further evaluation. Patient denies any fever, chills, cough, chest pain, palpitation, dizziness, nausea, vomiting or any change in his bowel or urinary habit. He states that he took his last dose of prednisone which was ordered during his last hospital discharge about a week ago yesterday. Patient currently follows up with pulmonary as an outpatient and according to him, he is a scheduled to be seen at [facility] for further evaluation of his COPD. Hospital Course Hospital Course: 10/06/20 Patient was seen and examined at bedside. Still has mild SOB but no further episodes of his "attacks". Unable to do radiouptake iodine thyroid scan as it will require him to be off Tapazole for 10 days. Will work him up for possible pheochromocytoma as he has episodic attacks of what sounds like anxiety attacks. He received 2 dose of buspirone and this interacts with the test so will wait until tomorrow to order tests. 10/07/20 Patient was seen and examined at bedside. No further episode of SOB. Otherwise stable on room air. Work up for Pheochromocytoma ordered. 10/08/20 Patient was seen and examined at bedside. Appears comfortable in bed. No episode of SOB. Echo done, pending result. No new complains. 10/09/20 Patient was seen and examined at bedside. No new complains, echo unremarkable. No further episodes. Awaiting pheocromocytoma work up. for the meantime I have increased his tapazole and restart his buspar. Physical Exam Vital Signs: Temp Pulse Resp BP Pulse Ox 97.7 F 67 12 118/84 94 10/10/20 10:50 10/10/20 10:50 10/10/20 10:50 10/10/20 07:40 10/10/20 10:50 Intake & Output 10/09/20 10/10/20 10/11/20 06:59 06:59 06:59 Intake Total 1210 920 Output Total 1450 Balance -240 920 Weight 57.1 kg 57.7 kg General appearance: PRESENT: no acute distress, cooperative Head exam: PRESENT: atraumatic, normocephalic Eye exam: PRESENT: EOMI, PERRLA Mouth exam: PRESENT: moist Neck exam: PRESENT: full ROM Respiratory exam: PRESENT: clear to auscultation abdifatah, symmetrical, unlabored Pulses: PRESENT: +2 pedal pulses bilateral GI/Abdominal exam: PRESENT: normal bowel sounds Extremities exam: PRESENT: full ROM Musculoskeletal exam: PRESENT: full ROM Neurological exam: PRESENT: alert, awake, oriented to person, oriented to place, oriented to time, oriented to situation Psychiatric exam: PRESENT: normal mood Skin exam: PRESENT: normal color Results Laboratory Results: WBC 18.1 10^3/uL (4.0-10.5) H 10/10/20 08:10 RBC 4.48 10^6/uL (4.35-5.55) 10/10/20 08:10 Hgb 14.2 g/dL (13.5-17.0) 10/10/20 08:10 Hct 42.5 % (37.9-51.0) 10/10/20 08:10 MCV 95 fl (80-97) 10/10/20 08:10 MCH 31.6 pg (27.0-33.4) 10/10/20 08:10 MCHC 33.3 g/dL (32.0-36.0) 10/10/20 08:10 RDW 13.5 % (11.5-14.0) 10/10/20 08:10 Plt Count 346 10^3/uL (150-450) 10/10/20 08:10 Lymph % (Auto) 27.3 % (13-45) 10/10/20 08:10 [place] % (Auto) 11.7 % (3-13) 10/10/20 08:10 Eos % (Auto) 0.3 % (0-6) 10/10/20 08:10 Baso % (Auto) 1.2 % (0-2) 10/10/20 08:10 Absolute Neuts (auto) 10.8 10^3/uL (1.7-8.2) H 10/10/20 08:10 Absolute Lymphs (auto) 4.9 10^3/uL (0.5-4.7) H 10/10/20 08:10 Absolute Monos (auto) 2.1 10^3/uL (0.1-1.4) H 10/10/20 08:10 Absolute Eos (auto) 0.0 10^3/uL (0.0-0.6) 10/10/20 08:10 Absolute Basos (auto) 0.2 10^3/uL (0.0-0.2) 10/10/20 08:10 Total Counted 100 10/08/20 09:19 Seg Neutrophils % 59.5 % (42-78) 10/10/20 08:10 Seg Neuts % (Manual) 70 % (42-78) 10/08/20 09:19 Lymphocytes % (Manual) 16 % (13-45) 10/08/20 09:19 Atypical Lymphs % 6 % (0) 10/08/20 09:19 Monocytes % (Manual) 8 % (3-13) 10/08/20 09:19 Eosinophils % (Manual) 0 % (0-6) 10/08/20 09:19 Basophils % (Manual) 0 % (0-2) 10/08/20 09:19 Abs Neuts (Manual) 13.7 10^3/uL (1.7-8.2) H 10/08/20 09:19 Abs Lymphs (Manual) 4.3 10^3/uL (0.5-4.7) 10/08/20 09:19 Abs Monocytes (Manual) 1.6 10^3/uL (0.1-1.4) H 10/08/20 09:19 Absolute Eos (Manual) 0.0 10^3/uL (0.0-0.6) 10/08/20 09:19 Abs Basophils (Manual) 0.0 10^3/uL (0.0-0.2) 10/08/20 09:19 Toxic Vacuolation PRESENT 10/06/20 04:53 Clumped Platelets PRESENT 10/05/20 04:14 Platelet Comment ADEQUATE 10/08/20 09:19 RBC Morph Comment NORMO-CYTIC/CHROMIC 10/08/20 09:19 VBG pH 7.30 (7.30-7.42) 10/05/20 12:09 VBG pCO2 67.8 mmHg (35-63) H* 10/05/20 12:09 VBG HCO3 32.3 mmol/L (20-32) H 10/05/20 12:09 VBG Base Excess 3.9 mmol/L 10/05/20 12:09 Sodium 132.4 mmol/L (137-145) L 10/10/20 08:10 Potassium 4.3 mmol/L (3.6-5.0) 10/10/20 08:10 Chloride 92 mmol/L (98-107) L 10/10/20 08:10 Carbon Dioxide 36 mmol/L (22-30) H 10/10/20 08:10 Anion Gap 4 (5-19) L 10/10/20 08:10 BUN 20 mg/dL (7-20) 10/10/20 08:10 Creatinine 0.94 mg/dL (0.52-1.25) 10/10/20 08:10 Est GFR ( Amer) > 60 (>60) 10/10/20 08:10 Est GFR (MDRD) Non-Af > 60 (>60) 10/10/20 08:10 Glucose 122 mg/dL (75-110) H 10/10/20 08:10 Calcium 9.3 mg/dL (8.4-10.2) 10/10/20 08:10 Total Bilirubin 0.6 mg/dL (0.2-1.3) 10/10/20 08:10 Direct Bilirubin 0.2 mg/dL (0.0-0.4) 10/10/20 08:10 Neonat Total Bilirubin Not Reportable 10/10/20 08:10 Neonat Direct Bilirubin Not Reportable 10/10/20 08:10 Neonat Indirect Bili Not Reportable 10/10/20 08:10 AST 17 U/L (17-59) 10/10/20 08:10 ALT 25 U/L (<50) 10/10/20 08:10 Alkaline Phosphatase 41 U/L (38-126) 10/10/20 08:10 Troponin I < 0.012 ng/mL 10/07/20 19:25 Total Protein 6.2 g/dL (6.3-8.2) L 10/10/20 08:10 Albumin 3.6 g/dL (3.5-5.0) 10/10/20 08:10 Procalcitonin < 0.02 ng/mL (0.00-0.08) 10/06/20 04:53 TSH 0.16 uIU/mL (0.47-4.68) L 10/06/20 04:53 Urine Color YELLOW 10/05/20 06:34 Urine Appearance CLEAR 10/05/20 06:34 Urine pH 5.0 (5.0-9.0) 10/05/20 06:34 Ur Specific [place] 1.018 10/05/20 06:34 Urine Protein NEGATIVE mg/dL (NEGATIVE) 10/05/20 06:34 Urine Glucose (UA) NEGATIVE mg/dL (NEGATIVE) 10/05/20 06:34 Urine Ketones NEGATIVE mg/dL (NEGATIVE) 10/05/20 06:34 Urine Blood NEGATIVE (NEGATIVE) 10/05/20 06:34 Urine Nitrite NEGATIVE (NEGATIVE) 10/05/20 06:34 Urine Bilirubin NEGATIVE (NEGATIVE) 10/05/20 06:34 Urine Urobilinogen NEGATIVE mg/dL (<2.0) 10/05/20 06:34 Ur Leukocyte Esterase NEGATIVE (NEGATIVE) 10/05/20 06:34 Urine WBC (Auto) 5 /HPF 10/05/20 06:34 Urine RBC (Auto) 1 /HPF 10/05/20 06:34 U Hyaline Cast (Auto) 48 /LPF 10/05/20 06:34 Squamous Epi Cells Auto 2 /HPF 10/05/20 06:34 Urine Mucus (Auto) RARE /LPF 10/05/20 06:34 Urine Ascorbic Acid 20 (NEGATIVE) H 10/05/20 06:34 [place] Human Metapneumo PCR NOT DETECTED (NOT DETECT) 10/05/20 07:05 Thyroglobulin Antibody <1.0 IU/mL (0.0-0.9) 10/05/20 16:05 Thyroid Peroxidase Ab <9 IU/mL (0-34) 10/05/20 16:05 Adenovirus (PCR) NOT DETECTED (NOT DETECT) 10/05/20 07:05 B. pertussis DNA (PCR) NOT DETECTED (NOT DETECT) 10/05/20 07:05 B.parapertussis DNA PCR NOT DETECTED (NOT DETECT) 10/05/20 07:05 C. pneumoniae DNA (PCR) NOT DETECTED (NOT DETECT) 10/05/20 07:05 Coronavirus OC43 (PCR) NOT DETECTED (NOT DETECT) 10/05/20 07:05 Coronavirus HKU1 (PCR) NOT DETECTED (NOT DETECT) 10/05/20 07:05 Coronavirus 229E (PCR) NOT DETECTED (NOT DETECT) 10/05/20 07:05 Coronavirus NL63 (PCR) NOT DETECTED (NOT DETECT) 10/05/20 07:05 Influenza A (H1) PCR NOT DETECTED (NOT DETECT) 10/05/20 07:05 Influ A (H1N1/09) PCR NOT DETECTED (NOT DETECT) 10/05/20 07:05 Influenza A (H3) PCR NOT DETECTED (NOT DETECT) 10/05/20 07:05 Influenza Type A (PCR) NOT DETECTED (NOT DETECT) 10/05/20 07:05 Influenza Type B (PCR) NOT DETECTED (NOT DETECT) 10/05/20 07:05 M. pneumoniae (PCR) NOT DETECTED (NOT DETECT) 10/05/20 07:05 Parainfluenza 1 (PCR) NOT DETECTED (NOT DETECT) 10/05/20 07:05 Parainfluenza 2 (PCR) NOT DETECTED (NOT DETECT) 10/05/20 07:05 Parainfluenza 3 (PCR) NOT DETECTED (NOT DETECT) 10/05/20 07:05 Parainfluenza 4 (PCR) NOT DETECTED (NOT DETECT) 10/05/20 07:05 RSV (PCR) NOT DETECTED (NOT DETECT) 10/05/20 07:05 Entero/Rhino (PCR) NOT DETECTED (NOT DETECT) 10/05/20 07:05 SARS-CoV-2 (PCR) NOT DETECTED (NOT DETECT) 10/05/20 07:05 10/07/20 19:25 Troponin I < 0.012 Impressions: Chest X-Ray 10/05/20 04:18 IMPRESSION: Underlying hyperinflation. Lungs are clear copyright 2011 [employer]- All Rights Reserved Plan Plan of Treatment: - needs Radioiodine scan for hyperthyroid work up - Work up for pheochromocytoma pendi - Buspar and tapazole dose increased Time Spent: Less than 30 Minutes Stroke Is this a Stroke Patient?: No Acute Heart Failure Is this a Heart Failure Patient?: No
== END 2020-10-10 11:54 | disposition home or self-care (01) | DRG 189 ==
LOC: ER 04:05 → EH 06:43 → 3W 10:27
PROVIDERS: ADMIT Student in an Organized Health Care Education/Training Program; ATTEND Internal Medicine
PROC: 5A09557 Assistance with Respiratory Ventilation, Greater than 96 Consecutive Hours, Continuous Positive Airway Pressure (ICD-10-PCS; principal; 2020-10-05)
PROC: B24BZZ4 Ultrasonography of Heart with Aorta, Transesophageal (ICD-10-PCS; 2020-10-08)
DX: J96.21 Acute and chronic respiratory failure with hypoxia (principal); J44.1 Chronic obstructive pulmonary disease with (acute) exacerbation; J96.22 Acute and chronic respiratory failure with hypercapnia; Z20.822 Contact with and (suspected) exposure to COVID-19; F41.9 Anxiety disorder, unspecified; E05.90 Thyrotoxicosis, unspecified without thyrotoxic crisis or storm; D72.829 Elevated white blood cell count, unspecified; D72.828 Other elevated white blood cell count; I10 Essential (primary) hypertension; K21.9 Gastro-esophageal reflux disease without esophagitis; F32.9 Major depressive disorder, single episode, unspecified; F17.210 Nicotine dependence, cigarettes, uncomplicated; Z99.81 Dependence on supplemental oxygen; Z79.899 Other long term (current) drug therapy; Z79.52 Long term (current) use of systemic steroids
CPT/HCPCS: 36415; 71045; 80048; 80053; 81001; 82382; 82570; 82803; 83835; 84145; 84443; 84484; 85025; 86376; 87040; 93005; 93010; 93306; 94640; 94660; 96360; 99285; 0202U; J1650; J2920; J3490; J7030; J7512; J7613